=== PATIENT | female | born 1985 | race Caucasian/White ===

== ENCOUNTER 2022-03-11 03:35 | Emergency (ER) | payer MEDICAID, SELFPAY ==
--- NOTE | ~2022-03-11 | XR_ITS ---
EXAMINATION: XR ANKLE, RIGHT CLINICAL INFORMATION: Fall with right ankle pain COMPARISON: None TECHNIQUE: AP, lateral, and mortise views of the right ankle. FINDINGS: Comminuted fracture of the medial malleolus. Lateral displacement of the distal fragment by 0.4 cm. Multiple small ossific fragments noted. There is a displaced posterior malleolus fracture with ossific gap at the articulation of 0.3 cm in AP dimension. Proximal migration of the fragment. There is an obliquely oriented distal fibular fracture extending to the ankle mortise. Mild lateral displacement of the distal fragment. This results in lateral shift of the talus in relation to the distal tibia. Diffuse soft tissue swelling. Ankle joint effusion. Small plantar heel spur. XR/XR ankle RT min 3V IMPRESSION: Trimalleolar right ankle fracture.
== END 2022-03-11 07:14 | disposition home or self-care (01) ==
PROVIDERS: Emergency Provider Emergency Medicine
DX: S82.851A Displaced trimalleolar fracture of right lower leg, initial encounter for closed fracture (principal); X50.1XXA Overexertion from prolonged static or awkward postures, initial encounter; Y93.89 Activity, other specified; Y92.038 Other place in apartment as the place of occurrence of the external cause; Y99.9 Unspecified external cause status
CPT/HCPCS: 29515; 73610; 96374; 99284

== ENCOUNTER → 2022-03-12 13:27 | Outpatient (BNVA) | payer MEDICAID, SELFPAY | PROVIDERS: Visit Provider Physician Assistant | DX: S82.851A Displaced trimalleolar fracture of right lower leg, initial encounter for closed fracture (principal) | CPT/HCPCS: 99202 ==

== ENCOUNTER 2022-03-17 09:47 | Day surgery (SDC) | payer MEDICAID, SELFPAY ==
--- NOTE | 2022-03-13 08:23 | P.CONAN_ITS ---
Documented by User: Roslyn Streeter NP 03/13/22 08:24 HPI - Anesthesia Eval Consult details Narrative: 37yo F for Right Ankle Fracture ORIF *Multiple Med Allergies* PMFSH Active Problems Active Problems: All Active Problems (Updated 03/12/22 @ 14:18 by Mony Walton) Trimalleolar fracture of right ankle (Acute) Past Medical History Medical History Asthma Bipolar disorder Chronic headache Surgical History Surgical History History of carpal tunnel release Hx of cholecystectomy Hx of hysterectomy Social History Social History Patient Tobacco Use Status: Current everyday Tobacco user Tobacco use type: Cigarette Smoked in Last 30 Days: Yes Patient Interested in Nicotine Replacement: No Substance Use Frequency: Daily Are you DNR?: No Advance Directives: No Advance Directives Information Provided: Yes Recently lost weight without trying: No Nutrition Risks: No Nutritional Risk Current occupational status: employed Current occupation: rt hand /dominos Meds Allergies Allergy/AdvReac Type Severity Reaction Status Date / Time codeine [CODEINE] Allergy Unknown STOMACH Verified 03/17/22 10:38 UPSET meperidine [From DEMEROL] Allergy Unknown ITCHING Verified 03/17/22 10:38 morphine [MORPHINE] Allergy Unknown ITCHING Verified 03/17/22 10:38 phenazopyridine Allergy Unknown STOMACH Verified 03/17/22 10:38 [From PYRIDIUM] UPSET tramadol [TRAMADOL] Allergy Unknown STOMACH Verified 03/17/22 10:38 UPSET ibuprofen [IBUPROFEN] AdvReac Unknown ABD PAIN Verified 03/17/22 10:38 Home Medications Medication Instructions Recorded Confirmed Last Taken Type dextroamphetamine-amphetamine 20 1 tab PO BID 03/12/22 Unknown History mg tablet divalproex 500 mg tablet,extended 500 mg PO BID 03/12/22 03/17/22 History release 24 hr propranolol 20 mg tablet 20 mg PO BID 03/12/22 03/17/22 History sulfamethoxazole 800 1 tab PO Q12H 03/12/22 Unknown History mg-trimethoprim 160 mg tablet sumatriptan succinate 50 mg tablet 0 mg PO 03/12/22 Unknown History Exam Exam Date and Time: March 13, 2022 0823 Assessment and Plan Assessment Anesthesia Assessment: Chart Reviewed Documented by User: Julio Canas MD 03/17/22 14:05 [facility] Past Medical History Medical History Asthma Bipolar disorder Chronic headache Family History Family history of problems with anesthesia: No Surgical History Surgical History History of carpal tunnel release Hx of cholecystectomy Hx of hysterectomy History of Problems with Anesthesia: No Social History Social History Patient Tobacco Use Status: Current everyday Tobacco user Tobacco use type: Cigarette Smoked in Last 30 Days: Yes Patient Interested in Nicotine Replacement: No Substance Use Frequency: Daily Are you DNR?: No Advance Directives: No Advance Directives Information Provided: Yes Recently lost weight without trying: No Nutrition Risks: No Nutritional Risk Current occupational status: employed Current occupation: rt hand /dominos Meds Allergies Allergy/AdvReac Type Severity Reaction Status Date / Time codeine [CODEINE] Allergy Unknown STOMACH Verified 03/17/22 10:38 UPSET meperidine [From DEMEROL] Allergy Unknown ITCHING Verified 03/17/22 10:38 morphine [MORPHINE] Allergy Unknown ITCHING Verified 03/17/22 10:38 phenazopyridine Allergy Unknown STOMACH Verified 03/17/22 10:38 [From PYRIDIUM] UPSET tramadol [TRAMADOL] Allergy Unknown STOMACH Verified 03/17/22 10:38 UPSET ibuprofen [IBUPROFEN] AdvReac Unknown ABD PAIN Verified 03/17/22 10:38 Home Medications Medication Instructions Recorded Confirmed Last Taken Type dextroamphetamine-amphetamine 20 1 tab PO BID 03/12/22 Unknown History mg tablet divalproex 500 mg tablet,extended 500 mg PO BID 03/12/22 03/17/22 History release 24 hr propranolol 20 mg tablet 20 mg PO BID 03/12/22 03/17/22 History sulfamethoxazole 800 1 tab PO Q12H 03/12/22 Unknown History mg-trimethoprim 160 mg tablet sumatriptan succinate 50 mg tablet 0 mg PO 03/12/22 Unknown History Exam Airway Mallampati Class: I TM Dist: >3cm Neck ROM: Full Denture: Upper and Lower Assessment and Plan Assessment Anesthesia Assessment: Anesthesia Plan Discussed Final Anesthetic Review Family History of Problems with Anesthesia: No History of Problems with Anesthesia: No NPO: Yes ASA Class: II Final Preanesthetic Review: No Changes in Pt Med Stat, Meds/Allgs Chart Reviewed, Consent Obtained/Reviewed and Anes Risks/Benef Reviewed Patient Risk: Low Procedure Risk: Low Anesthetic Plan Anesthetic Plan: GA and Regional Block Disposition: Standard PACU
[2022-03-17] VITALS (9 sets, daily range): BP systolic 104–124; BP diastolic 51–72; PULSE 55–75; RESP 16–18; TEMP 36.2–36.7; O2SAT 96–100; BMI 30.7
--- NOTE | ~2022-03-17 | FL_ITS ---
EXAMINATION: Intraoperative fluoroscopy CLINICAL INFORMATION: Right ankle fracture COMPARISON: Right ankle x-rays 03/11/2022 TECHNIQUE: Intraoperative fluoroscopy was provided for use by Dr. Trotter. A total of 4 images were saved to PACS. A radiologist was not present during imaging. Today's dictation is only for administrative purposes to document intraoperative fluoroscopic usage. TOTAL FLUOROSCOPIC TIME: 0.2 minutes FL/FL guidance in OR FINDINGS~\^^ Intraoperative fluoroscopy provided for use by Dr. Trotter. Please see operative note for detailed findings.
--- NOTE | 2022-03-17 10:37 | PC.NURSE ---
patient states had a hysterectomy in 2006 at [facility]. hcg preoperative not required
[2022-03-17] MEDS: Lactated Ringers 1,000 ML 100 ML IVCONT (10:39)
--- NOTE | 2022-03-17 11:57 | MHC.SHP ---
Pre-Procedural Eval Section A Date of Service: 03/17/22 The patient is an INPATIENT: No Changes since office visit: Yes Patient answered all questions; No Cold of Flu in the past 2 weeks, No New Medical Problems and No Changes in Medication The History & Physical has been completed within 30 days and I have reviewed it.: Yes Section B Chief Complaint: ankle fx Allergies: Allergies Allergy/AdvReac Type Severity Reaction Status Date / Time codeine [CODEINE] Allergy Unknown STOMACH Verified 03/17/22 10:38 UPSET meperidine [From DEMEROL] Allergy Unknown ITCHING Verified 03/17/22 10:38 morphine [MORPHINE] Allergy Unknown ITCHING Verified 03/17/22 10:38 phenazopyridine Allergy Unknown STOMACH Verified 03/17/22 10:38 [From PYRIDIUM] UPSET tramadol [TRAMADOL] Allergy Unknown STOMACH Verified 03/17/22 10:38 UPSET ibuprofen [IBUPROFEN] AdvReac Unknown ABD PAIN Verified 03/17/22 10:38 Plan I have reviewed the history and physical and performed a pertinent physical examination on my patient. No changes have occurred unless specified.
[2022-03-17] MEDS: HYDROmorphone HCl 0.5 MG/0.5 ML SYRINGE 0.25 MG IVPUSH (14:26)
--- NOTE | 2022-03-17 14:27 | P.BOP_ITS ---
Brief Operative Note Date of Service: 03/17/22 Pre-op diagnosis: Right ankle trimalleolar fracture Post-op diagnosis: same Procedure: ORIF lateral malleolus ORIF medial malleolus Implants: Zach 4 hold disstal fibular locking plate [place] 40 mm 4.0 partially threaded cancellous screws Surgeon: Steven Trotter MD Anesthesia: GETA and regional Was an Cnc Machine Setter used for this Procedure?: Yes Cnc Machine Setter: Rosina Pelaez Estimated blood loss (mL): 25 IV fluids (mL): 1,000 Pathology: none sent Condition: stable Disposition: PACU
[2022-03-17] MEDS: oxyCODONE HCl Immed Release 5 MG TABLET 10 MG PO (14:28)
[2022-03-17] MEDS: Acetaminophen 325 MG TABLET 650 MG PO (14:29)
--- NOTE | 2022-03-18 08:34 | W.PM.OPN ---
Operative Note Operative Note Date of Service: 03/17/22 Narrative: Date of Service: 03/17/22 Pre-op diagnosis: Right ankle trimalleolar fracture Post-op diagnosis: same Procedure: ORIF lateral malleolus ORIF medial malleolus Implants: Zach 4 hold disstal fibular locking plate [place] 40 mm 4.0 partially threaded cancellous screws Surgeon: Steven Trotter MD Anesthesia: GETA and regional Was an Bindery Machine Tender used for this Procedure?: Yes Bindery Machine Tender: Rosina Pelaez Estimated blood loss (mL): 25 IV fluids (mL): 1,000 Pathology: none sent Condition: stable Disposition: PACU Procedure in detail: Patient was brought to the operating room and placed supine on the surgical table. She was prepped and draped in standard sterile fashion and a time out was called to identify proper site, proper procedure and IV antibiotics per weight were administered. I began by exsanguinating the limb and insufflating the tourniquet to 300 mm Hg. A standard posterolateral full-thickness incision was made over the distal fibula. Full-thickness flaps were developed and a transverse fracture with anterior comminution at the metadiaphysis I used combination of irrigation, sharp debridement and a [place] to reduce the fracture. Once was reduced a 4 hole [place] distal locking plate was applied. Using standard AO technique and biplanar fluoroscopy the 4 distal locking screws and proximal nonlocking screws were applied. I was satisfied with the position of plate and the fracture reduction. I then turned my attention to the medial aspect. An oblique incision was made over the medial malleolus. Transverse medial malleolar fracture was identified and reduced with a sharp tenaculum. Two partially threaded K-wires were placed from distal to proximal through the medial malleolus making sure to remain extra-articular. 240 mm partially threaded cancellous screws were then placed over the wire reducing the medial malleolar fracture. Again biplanar fluoroscopy was used to confirm fracture reduction and hardware position. Once I was satisfied with these parameters I assessed the syndesmosis which was stable. At any or gated copiously and the wounds were closed with absorbable suture and leno. Patient was placed into sterile dressings and a well-padded posterior splint. She was extubated brought to the recovery room in stable condition. There were no known complications.
== END 2022-03-17 15:26 | disposition home or self-care (01) ==
PROVIDERS: Visit Provider Orthopaedic Surgery
PROC: (CPT 27822; principal; 2022-03-17 11:40)
DX: S82.851A Displaced trimalleolar fracture of right lower leg, initial encounter for closed fracture (principal); W10.8XXA Fall (on) (from) other stairs and steps, initial encounter; Y93.89 Activity, other specified; Y92.038 Other place in apartment as the place of occurrence of the external cause; Y99.8 Other external cause status; J45.909 Unspecified asthma, uncomplicated; F31.9 Bipolar disorder, unspecified; R51.9 Headache, unspecified; Z79.899 Other long term (current) drug therapy; Z88.8 Allergy status to other drugs, medicaments and biological substances
CPT/HCPCS: 27822; C1713; J0690; J1100; J1170; J2250; J2405; J2795

== ENCOUNTER → 2022-03-30 11:43 | Outpatient (BNVA) | payer MEDICAID, SELFPAY | PROVIDERS: Visit Provider Physician Assistant | DX: S82.851D Displaced trimalleolar fracture of right lower leg, subsequent encounter for closed fracture with routine healing (principal) | CPT/HCPCS: 29405 ==

== ENCOUNTER 2022-04-21 11:42 | Outpatient (REF) | payer MEDICAID, SELFPAY ==
--- NOTE | ~2022-04-21 | XR_ITS ---
EXAMINATION: XR ANKLE, RIGHT CLINICAL INFORMATION: Pain right ankle. COMPARISON: Right ankle 3 views 03/11/2022. TECHNIQUE: 3 views. FINDINGS: There are two malleolar screws and a lateral fibular plate and screws stabilizing previously noted fractures in alignment. The right ankle is in a hard cast. The ankle mortise and subtalar joints are normal. There is a small calcaneal heel enthesophyte. XR/XR ankle RT min 3V IMPRESSION: Status post internal fixation. Normal alignment of medial malleolar fracture and lateral fibular fracture. The entire right ankle is in a cast. Two medial malleolar screws and lateral fibular plate are in good position.
== END 2022-04-21 11:43 | disposition home or self-care (01) ==
LOC: HO.XRAY 11:42
PROVIDERS: Visit Provider Orthopaedic Surgery
DX: M25.571 Pain in right ankle and joints of right foot (principal)
CPT/HCPCS: 73610

== ENCOUNTER 2022-04-27 07:41 | Outpatient (REF) | payer MEDICAID, SELFPAY ==
--- NOTE | ~2022-04-27 | XR_ITS ---
EXAMINATION: XR ANKLE, RIGHT CLINICAL INFORMATION: Ankle pain. COMPARISON: 03/11/2022 TECHNIQUE: AP, lateral, and mortise views of the right ankle. FINDINGS: Again noted is the reduction of the trimalleolar fracture. The medial malleolar fragment is in anatomic position, stabilized by two intact lag screws. The posterior malleolar fragment is in anatomic position. The fractures are healing; there is is periosteal new bone formation. The Rubin B injury of the distal fibula is reduced by the lateral plate and screws. Periarticular osteopenia of the ankle. There appears to be a small ankle joint effusion. XR/XR ankle RT min 3V IMPRESSION: No evidence of postoperative complications, status post open reduction and internal fixation of the trimalleolar fracture. There is radiographic evidence of fracture healing. No loosening of fixation hardware.
== END 2022-04-27 07:42 | disposition home or self-care (01) ==
LOC: HO.HOSX 07:41
PROVIDERS: Visit Provider Physician Assistant
DX: M25.571 Pain in right ankle and joints of right foot (principal)
CPT/HCPCS: 73610

== ENCOUNTER 2022-05-11 07:40 | Outpatient (REF) | payer MEDICAID, SELFPAY | END 2022-05-11 07:41 | disposition home or self-care (01) | LOC: HO.HOSX 07:40 | PROVIDERS: Visit Provider Physician Assistant | DX: Z13.89 Encounter for screening for other disorder (principal) ==

== ENCOUNTER 2022-06-01 08:04 | Outpatient (REF) | payer MEDICAID, SELFPAY ==
--- NOTE | ~2022-06-01 | XR_ITS ---
EXAMINATION: XR ANKLE, RIGHT CLINICAL INFORMATION: Pain COMPARISON: Prior imaging latest 12/20/2021 TECHNIQUE: AP, lateral, and mortise views of the right ankle. FINDINGS: Status postsurgical fixation off the distal fibular fracture and the medial malleolus fracture. Stable anatomic alignment. Hardware is intact. The fracture planes are not well visualized, suggestive of progression of healing. Stable alignment of the posterior malleolar fracture, with periosteal changes. XR/XR ankle RT min 3V IMPRESSION: Stable alignment of the trimalleolar fracture. Hardware is intact. Findings suggest progression of healing.
== END 2022-06-01 08:05 | disposition home or self-care (01) ==
LOC: HO.HOSX 08:04
PROVIDERS: Visit Provider Physician Assistant
DX: M25.571 Pain in right ankle and joints of right foot (principal)
CPT/HCPCS: 73610

== ENCOUNTER 2022-07-20 06:03 | Outpatient (REF) | payer MEDICAID, SELFPAY | END 2022-07-20 06:04 | disposition home or self-care (01) | LOC: HO.HOSX 06:03 | PROVIDERS: Visit Provider Physician Assistant | DX: Z13.89 Encounter for screening for other disorder (principal) ==

== ENCOUNTER 2022-08-17 07:46 | Outpatient (REF) | payer MEDICAID, SELFPAY | END 2022-08-17 07:47 | disposition home or self-care (01) | LOC: HO.HOSX 07:46 | PROVIDERS: Visit Provider Physician Assistant | DX: Z13.89 Encounter for screening for other disorder (principal) ==

== ENCOUNTER 2023-10-14 14:45 | Emergency (ER) | payer MEDICAID, SELFPAY ==
--- NOTE | ~2023-10-14 | CT_ITS ---
EXAMINATION: CT CHEST WITHOUT CONTRAST CLINICAL INFORMATION: Left chest wall pain after fall. COMPARISON: None available. TECHNIQUE: Multidetector volumetric CT imaging of the chest was done. Axial MIP volume rendering provided. Sagittal and coronal reformatted images were obtained. This CT examination was performed using dose optimization techniques as appropriate, variously including the following: *Automated exposure control *Adjustment of mA and/or kV according to patient size (this includes techniques or standardized protocols for targeted exams where dose is matched to indication/reason for exam; i.e. extremities or head) *Use of iterative reconstruction technique DLP: 261 mGy-cm FINDINGS: BUOY TENDER: Well-expanded lungs. LUNGS: The lungs are well-expanded and clear of acute pneumonic process. There is bibasilar dependent atelectasis There is no pulmonary nodule, mass or groundglass density. No lung contusion visualized. MEDIASTINUM: Thyroid lobes are symmetrical and normal. The central trachea and the bronchi widely patent. Heart size and great vessels are normal caliber. No abnormal size mediastinal lymph nodes are hematoma. No pericardial effusion. CORONARY ARTERY CALCIFICATION: None visualized on this study. PLEURA: There is no pleural effusion. No pleural mass or thickening. AXILLA: No lymphadenopathy. UPPER ABDOMEN: Visualized liver, spleen, pancreas and bilateral adrenal glands are unremarkable. The gallbladder has been surgically removed. OSSEOUS STRUCTURES: There is a minimally displaced left lateral seventh and fourth rib fractures. No additional fracture seen. CT/CT chest wo IV con IMPRESSION: Displaced left anterolateral seventh and a fourth rib fractures. There is no pneumothorax or lung contusion. Dependent bibasilar atelectasis. Fleischner guidelines were followed.
[2023-10-14 15:12] VITALS: BP 131/85; PULSE 85; RESP 16; TEMP 36.9; O2SAT 98; BMI 26.6
--- NOTE | 2023-10-14 15:13 | ED.GENADULT ---
HPI - General Adult General Chief complaint: General Medical Stated complaint: RIB PAIN X5 DAYS S/P FALL,SEEN WEDNESDAY PER EMS Time Seen by Provider: 10/14/23 15:42 Source: patient, RN notes reviewed and old records reviewed Mode of arrival: ambulatory History of Present Illness HPI narrative: 38-year-old female with a past medical history of asthma, bipolar, presenting to the ED complaining left rib pain s/p mechanical slip and fall on ice 5 days ago. Admits was seen at [facility] had x-rays which were unremarkable, prescribed oxycodone and Tylenol without relief. Reports pain worse with coughing/movement and palpation. Denies recurrent or more recent injury/fall, SOB/CP, abdominal pain, nausea/vomiting. Denies taking anticoagulation Related Data Home Medications Medication Instructions Recorded Confirmed dextroamphetamine-amphetamine 20 1 tab PO BID 03/12/22 mg tablet divalproex 500 mg tablet,extended 500 mg PO BID 03/12/22 release 24 hr propranolol 20 mg tablet 20 mg PO BID 03/12/22 sulfamethoxazole 800 1 tab PO Q12H 03/12/22 mg-trimethoprim 160 mg tablet sumatriptan succinate 50 mg tablet 0 mg PO 03/12/22 Previous Rx's Medication Instructions Recorded hydrocodone 5 mg-acetaminophen 325 1 tab PO Q8H PRN pain, severe 3 10/14/23 mg tablet days #3 tabs ketorolac 10 mg tablet 10 mg PO TID PRN pain 5 days #15 10/14/23 tabs lidocaine 5 % topical patch 1 patch topical DAILY PRN pain #30 10/14/23 (Lidoderm) ea Allergies Allergy/AdvReac Type Severity Reaction Status Date / Time codeine [CODEINE] Allergy Unknown STOMACH Verified 06/01/22 10:38 UPSET meperidine [From DEMEROL] Allergy Unknown ITCHING Verified 06/01/22 10:38 morphine [MORPHINE] Allergy Unknown ITCHING Verified 06/01/22 10:38 phenazopyridine Allergy Unknown STOMACH Verified 06/01/22 10:38 [From PYRIDIUM] UPSET tramadol [TRAMADOL] Allergy Unknown STOMACH Verified 06/01/22 10:38 UPSET ibuprofen [IBUPROFEN] AdvReac Unknown ABD PAIN Verified 06/01/22 10:38 Review of Systems Review of Systems: Constitutional: No Fever, No Chills ENT/Mouth: No Ear Pain, No Nasal Congestion, No sore throat, No Rhinorrhea, No Swallowing Difficulty Cardiovascular: +Chest Wall Pain, No SOB Respiratory: No Cough, No Sputum Gastrointestinal: No Nausea, No Vomiting, No Diarrhea, No Constipation, No Abdominal pain Genitourinary: No Dysuria, No Hematuria, No Urinary Incontinence/retention Musculoskeletal: No joint pain, No Myalgias, No Joint Swelling Skin: No Skin Lesions, No rash Neuro: No Weakness Yes all other systems are reviewed and are negative Constitutional: Constitutional: Reports as per [facility] Past Medical History Attestation statement: The following information was validated with the patient. Source: old records reviewed Medical History Asthma Chronic headache Bipolar disorder Surgical History History of carpal tunnel release Hx of hysterectomy Hx of cholecystectomy Social History Social History Comment: count correct Patient Tobacco Use Status: Current everyday Tobacco user Tobacco use type: Cigarette Advance Directives: No Advance Directives Information Provided: No Current occupational status: employed Current occupation: rt hand /dominos Physical Exam ED Vital Signs: Vital Signs - 24 hr 10/14/23 15:12 Temperature 98.5 F Pulse Rate 85 Respiratory Rate 16 Blood Pressure 131/85 Pulse Oximetry 98 Oxygen Delivery Method Room Air BMI result Body Mass Index 26.6 Const General: cooperative, healthy appearing and no acute distress Orientation/consciousness: patient oriented x3 Limitations: no limitations [facility] Head: Yes normal to inspection and Yes atraumatic Ears: hearing grossly normal bilaterally General nose exam: Normal external nose present Face and sinus: Yes normal facial exam Eyes General: appearance normal, both eyes and all related structures EOM: EOMs intact bilaterally Neck Neck: Yes normal visual inspection and Yes no meningeal signs Chest Other: + left anterior lateral chest wall/rib reproducible tenderness noted, beneath breast. No erythema/ecchymosis or flail chest. No crepitus. Chest palpation & inspection: normal inspection of the chest, no crepitus and tenderness Resp Effort & Inspection: normal respiratory effort and no respiratory distress Auscultation: clear to auscultation bilaterally Cardio Rate: regular rate GI Inspection: Yes normal to inspection Palpation (GI): Soft to palpation, nontender, no guarding and not rigid Back/Spine/Pelvis Other: No midline cervical/thoracic/lumbar spinous tenderness/step-off or deformity Skin Rashes: no rashes Wounds: no wounds Neuro General: patient oriented x3, tone normal and no meningeal signs Cranial nerves: Yes CN's II-XII intact bilaterally Gait exam (Neuro): Normal gait present Extrem General: Yes normal to inspection Course Course Course Narrative: RME- 38 old female presents for evaluation of left chest wall pain. She reports slipping and falling on the sidewalk 5 days ago. She was seen at outside facility had x-rays that were negative for fracture of the ribs. She reports continued pain, especially worse with coughing. Plan for CT scan of the chest to evaluate for occult rib fracture CT chest wo IV con IMPRESSION: Displaced left anterolateral seventh and a fourth rib fractures. There is no pneumothorax or lung contusion. Dependent bibasilar atelectasis. Fleischner guidelines were followed. > patient is supplied with incentive spirometer Results discussed with patient including worrisome signs and symptoms and strict return precautions, and when to return to the emergency department. They verbalized understanding and feel safe for discharge at this time. Medications Administered Discontinued Medications Generic Name Dose Route Start Last Admin Trade Name Freq PRN Reason Stop Dose Admin Ketorolac Tromethamine 30 mg 10/14/23 16:13 10/14/23 16:22 Ketorolac Tromethamine 30 Mg/Ml Vial IM 10/14/23 16:14 30 mg ONCE ONE Administration Lidocaine 1 patch 10/14/23 16:13 10/14/23 16:22 Lidocaine 4 % Patch Adh..Patch TRANSDERMA 10/14/23 16:14 Not Given ONCE ONE Protocol Medical Decision Making Medical Decision Making MDM Narrative: 38-year-old female with a past medical history of asthma, bipolar, presenting to the ED complaining left rib pain s/p mechanical slip and fall on ice 5 days ago. On exam vital signs stable, NAD, nontoxic appearing, physical exam as noted above with reproducible rib/chest wall tenderness. No evidence of flail chest. Abdomen soft/nontender. Concern for rib fracture vs contusion. Low suspicion for liver/splenic injury or hematoma Plan: CT chest, pain control Please refer to course for remaining clinical decision making, interpretation of labs/imaging results, and discussions with consultants and/or family members. Differential Diagnosis Differential Diagnoses: The differential diagnosis associated with the presentation includes As above Admission/Observation Consideration of admission/observation: Escalation of care including admission/observation considered Independent Interpretation I performed an independent interpretation of an: CT Scan Radiology Impression Discussion of test interpretation with radiology: I have reviewed the radiologist's reading. External Record Review External record reviewed: Inpatient record, Office record, Outpatient record, Prior outpatient labs, Prior outpatient radiology, Primary care record and Outside ED record Tests considered The following testing was considered but not selected: As above Prescription Management I considered prescription management with: Pain Medication Discharge Plan Discharge Clinical Impression: Multiple rib fractures Patient Disposition: Home, Self-Care Instructions: Rib Fracture (ED) Additional Instructions: You have a fracture of your left anterior lateral 7th and 4th rib fractures. [employer] as an opiate pain medication, take only when pain is severe for the next 3 days Toradol as an anti-inflammatory/pain medication Lidoderm patches or numbing patches, apply to painful area Please use incentive spirometer as taught to you in the emergency department. It is important to continue to take deep breaths or you could develop pneumonia If you develop fever, persistent or worsening pain, shortness of breath return to the ED Follow-up with your doctor Prescriptions: New ketorolac 10 mg tablet 10 mg PO TID PRN (Reason: pain) 5 Days Qty: 15 0RF lidocaine [Lidoderm] 5 % adhesive patch,medicated 1 patch topical DAILY MDD remove after 12 hours PRN (Reason: pain) Qty: 30 0RF Rx Instructions: leave on most painful area for up to 12 hrs hydrocodone-acetaminophen 5-325 mg tablet 1 tab PO Q8H PRN (Reason: pain, severe) 3 Days Qty: 3 0RF Rx Instructions: Partial Fill upon patient request. No Action dextroamphetamine-amphetamine 20 mg tablet 1 tab PO BID propranolol 20 mg tablet 20 mg PO BID divalproex 500 mg tablet extended release 24 hr 500 mg PO BID sumatriptan succinate 50 mg tablet 0 mg PO sulfamethoxazole-trimethoprim 800-160 mg tablet 1 tab PO Q12H Referrals: Physician,Unknown J [Primary Care Provider] - Stand Alone Forms: Work/School Release Interventions: ED Discharge Assessment Last Done: 10/14/23 17:53 Discharge Date/Time: 10/14/23 17:53
[2023-10-14] MEDS: Ketorolac Tromethamine 30 MG/ML VIAL IM (16:22)
== END 2023-10-14 17:53 | disposition home or self-care (01) ==
PROVIDERS: Emergency Provider Emergency Medicine Emergency Medical Services
DX: S22.42XA Multiple fractures of ribs, left side, initial encounter for closed fracture (principal); W00.0XXA Fall on same level due to ice and snow, initial encounter; Y93.9 Activity, unspecified; Y92.9 Unspecified place or not applicable; Y99.9 Unspecified external cause status
CPT/HCPCS: 71250; 96372; 99284; J1885

== ENCOUNTER 2023-10-25 14:47 | Emergency (ER) | payer MEDICAID, SELFPAY ==
--- NOTE | ~2023-10-25 | XR_ITS ---
EXAMINATION: XR RIBS, LEFT, WITH PA CHEST CLINICAL INFORMATION: Pain, injury COMPARISON: Chest CT from 10/14/2023. TECHNIQUE: 3 views of the left ribs along with PA view of chest. FINDINGS: Lungs are well-inflated and clear. Trachea is midline in position. No interstitial disease, consolidation or mass. No pleural effusion or pneumothorax. Cardiac silhouette and pulmonary vessels are normal in size. The mediastinum and mitzy have normal contour. The fracture of the left anterior fourth rib is mildly displaced. Also, there is a mildly displaced fracture of the left anterior fifth rib. The sixth rib is grossly normal. Again noted is the displaced fracture of the left anterolateral seventh rib. These rib fractures are visible on the recent chest CT from 10/14/2023. XR/XR ribs LT min 3V w CXR1V IMPRESSION: * No acute pulmonary disease. * No pleural effusion or pneumothorax after the recent left rib fractures. Currently, no evidence of healing of these fractures.
[2023-10-25 15:15] VITALS: BP 129/98; PULSE 88; RESP 18; TEMP 36.2; O2SAT 95; BMI 31.6
--- NOTE | 2023-10-25 15:15 | ED_ITS ---
HPI - General Adult General Chief complaint: General Medical Stated complaint: trouble breathing, L rib pain Time Seen by Provider: 10/25/23 16:53 Source: patient Mode of arrival: ambulatory Limitations: no limitations History of Present Illness HPI narrative: Patient is a 38 year old assigned female at with a history of known left sided broken ribs presenting to the emergency department today with continued left sided rib pain. Patient states that she got diagnosed with left rib pain. Patient states that she would like to have a work note. Patient denies any dizziness, lightheadedness, abdominal pain, nausea, vomiting, fever, chills, blurry vision, double vision, loss of vision, chest pain, difficulty breathing, shortness of breath, back pain, night sweats, pain with urination, increased urinary frequency, increased urinary urgency, blood in her urine or stool, syncope or a near syncopal episode, bowel incontinence, bladder incontinence, bowel retention, bladder retention, or any other complaints at this time. Onset (ago): day(s) (11) Location: left (rib pain) Radiation: non-radiation Severity: mild Severity scale (1-10): 3 Quality: aching and dull Pain Consistency: constant Relieving factors: none Exacerbating factors: none Associated symptoms: denies other symptoms Treatments prior to arrival: none Related Data Home Medications Medication Instructions Recorded Confirmed dextroamphetamine-amphetamine 20 1 tab PO BID 03/12/22 mg tablet divalproex 500 mg tablet,extended 500 mg PO BID 03/12/22 release 24 hr propranolol 20 mg tablet 20 mg PO BID 03/12/22 sulfamethoxazole 800 1 tab PO Q12H 03/12/22 mg-trimethoprim 160 mg tablet sumatriptan succinate 50 mg tablet 0 mg PO 03/12/22 Previous Rx's Medication Instructions Recorded hydrocodone 5 mg-acetaminophen 325 1 tab PO Q8H PRN pain, severe 3 10/14/23 mg tablet days #3 tabs ketorolac 10 mg tablet 10 mg PO TID PRN pain 5 days #15 10/14/23 tabs lidocaine 5 % topical patch 1 patch topical DAILY PRN pain #30 10/14/23 (Lidoderm) ea Allergies Allergy/AdvReac Type Severity Reaction Status Date / Time codeine [CODEINE] Allergy Unknown STOMACH Verified 10/25/23 15:19 UPSET meperidine [From DEMEROL] Allergy Unknown ITCHING Verified 10/25/23 15:19 morphine [MORPHINE] Allergy Unknown ITCHING Verified 10/25/23 15:19 phenazopyridine Allergy Unknown STOMACH Verified 10/25/23 15:19 [From PYRIDIUM] UPSET tramadol [TRAMADOL] Allergy Unknown STOMACH Verified 10/25/23 15:19 UPSET ibuprofen [IBUPROFEN] AdvReac Unknown ABD PAIN Verified 10/25/23 15:19 Review of Systems Constitutional: Constitutional: Reports no additional constitutional complaints, Denies chills, Denies fever(s) and Denies night sweats Eyes: Eyes: Reports no additional eye complaints, Denies blurry vision, Denies change in vision, Denies diplopia, Denies eye discharge, Denies loss of vision and Denies eye pain ENT: Denies dizziness Cardiovascular: Cardiovascular: Reports no additional cardiovascular complaints, Denies chest pain, Denies lightheadedness, Denies Loss of Consciousness and Denies dyspnea Respiratory: Respiratory: Reports no additional respiratory complaints and Denies dyspnea Gastrointestinal: Gastrointestinal: Reports no additional gastrointestinal complaints, Denies abdominal pain, Denies melena, Denies hematochezia, Denies change in bowel habits and Denies change in stool character Genitourinary: Genitourinary: Denies hematuria, Denies urinary frequency, Denies dysuria, Denies urinary incontinence, Denies urinary hesitancy and Denies urinary urgency Musculoskeletal: Musculoskeletal: Reports no additional musculoskeletal complaints, Denies numbness and Denies tingling Comments: left sided rib pain Neurologic: Denies dizziness, Denies loss of vision, Denies numbness and Denies tingling Psychiatric: Psychiatric: Reports no additional psychiatric complaints Endocrine: Endocrine: Reports no additional endocrine complaints Hematologic/Lymphatic: Hematologic/Lymphatic: Reports no additional hematologic/lymphatic complaints Allergic/Immunologic: Allergic/Immunologic: Reports no additional allergic/immunologic complaints PMFSH Past Medical History Attestation statement: The following information was validated with the patient. Source: old records reviewed and nursing notes reviewed Medical History Asthma Chronic headache Bipolar disorder Surgical History History of carpal tunnel release Hx of hysterectomy Hx of cholecystectomy Social History Social History Comment: count correct Patient Tobacco Use Status: Current everyday Tobacco user Tobacco use type: Cigarette Advance Directives: No Advance Directives Information Provided: No Current occupational status: employed Current occupation: rt hand /[employer] Physical Exam ED Vital Signs: Vital Signs - 24 hr 10/25/23 15:15 Temperature 97.2 F Pulse Rate 88 Respiratory Rate 18 Blood Pressure 129/98 H Pulse Oximetry 95 Oxygen Delivery Method Room Air BMI result Body Mass Index 31.6 Const General: cooperative, no acute distress, alert and awake Nutritional Appearance: well nourished Orientation/consciousness: patient oriented x3 Limitations: no limitations HENMT Head: Yes normal to inspection and Yes atraumatic Ears: hearing grossly normal bilaterally and external ears normal General nose exam: Normal external nose present, no nasal discharge noted and no epistaxis Face and sinus: Yes normal facial exam, No abrasion and No laceration Mouth: Normal oral and palatal mucosa present, no drooling and no muffled voice Eyes General: appearance normal, both eyes and all related structures Periorbital: periorbital findings normal Eyelids: Yes eyelids normal Conjunctivae: conjunctivae normal Pupils: Equal, round and reactive pupils present EOM: EOMs intact bilaterally Neck Neck: Yes normal visual inspection, Yes full ROM and Yes no lymphadenopathy Chest Chest palpation & inspection: normal inspection of the chest Resp Effort & Inspection: normal respiratory effort and able to speak in complete sentences Auscultation: clear to auscultation bilaterally GI Inspection: Yes normal to inspection Neuro General: patient oriented x3 and moves all extremities Cranial nerves: Yes Equal, round and reactive pupils present Cognition (Neuro): normal cognition Motor exam (neuro): 5/5 motor strength present throughout Sensory Exam: Normal double simultaneous stimulation for sensation Coordination: [id number] test normal Extrem General: Yes normal to inspection, Yes full ROM and Yes capillary refill normal Psych Appearance: grossly normal Mental Status: mental status grossly normal Affect: normal affect Attitude: cooperative Thought process: Normal thought process present Thought content: Normal thought content present Insight: Good insight present (Psych) Course Course Course Narrative: RME performed by Nunu Garay PA-C. Patient is a 38 year old assigned female at presenting to the emergency department with left sided rib pain. Patient states that she has 2 broken ribs on that side and the pain is persistent. Detailed physical exam and review of systems are deferred to the care program resident. Imaging ordered. Patient placed back in the waiting room pending room availability and results. Medical Decision Making Medical Decision Making MDM Narrative: Patient is a 38 year old assigned female at with a history of recent rib fracture presenting to the emergency department today with left sided rib pain. Patient's physical exam was unremarkable. Patient's rib x-ray showed a fractured 4th, 5th, and 7th left rib. This is unchanged from her previous chest CT and there is no evidence of penumo or hemothorax. I explained my physical exam findings as well as all test results to the patient. I answered all questions asked by the patient. I stressed the importance of the patient taking her medication as prescribed. I stressed the importance of the patient following up with her primary care provider. I stressed the importance of the patient returning to the emergency department immediately if her symptoms were to worsen or if she were to develop any dizziness, shortness of breath, difficulty breathing, chest pain, blurry vision, loss of vision, nausea, vomiting, abdominal pain, fever, chills, back pain, or any other complaints. Patient verbalized agreement and understanding with this treatment plan and discharge. Differential Diagnosis Differential Diagnoses: The differential diagnosis associated with the presentation includes Left rib fractures Rib contusion Rib pain Rib injury Admission/Observation Consideration of admission/observation: Escalation of care including admission/observation considered Patient would have been admitted to the hospital had her work up had any findings where hospital admission was appropriate and her clinical presentation warranted hospital admission. Independent Interpretation I performed an independent interpretation of an: Plain X-Ray Interpretation: My interpretation is in agreement with the radiologist's impression of this imaging study. -- EXAMINATION: XR RIBS, LEFT, WITH PA CHEST CLINICAL INFORMATION: Pain, injury COMPARISON: Chest CT from 10/14/2023. TECHNIQUE: 3 views of the left ribs along with PA view of chest. FINDINGS: Lungs are well-inflated and clear. Trachea is midline in position. No interstitial disease, consolidation or mass. No pleural effusion or pneumothorax. Cardiac silhouette and pulmonary vessels are normal in size. The mediastinum and mitzy have normal contour. The fracture of the left anterior fourth rib is mildly displaced. Also, there is a mildly displaced fracture of the left anterior fifth rib. The sixth rib is grossly normal. Again noted is the displaced fracture of the left anterolateral seventh rib. These rib fractures are visible on the recent chest CT from 10/14/2023. XR/XR ribs LT min 3V w CXR1V IMPRESSION: * No acute pulmonary disease. * No pleural effusion or pneumothorax after the recent left rib fractures. Currently, no evidence of healing of these fractures. Dictated By: Faheem Oliver MD Signed By: Electronically signed by Faheem Oliver MD 10/25/23 1634 Radiology Impression Discussion of test interpretation with radiology: I have reviewed the radiologist's reading. Discharge Plan Discharge Clinical Impression: Closed rib fracture Patient Disposition: Home, Self-Care Instructions: Rib Fracture (ED) Additional Instructions: Follow up with your primary care provider. Return to the emergency department immediately if your symptoms worsen or if you develop any dizziness, shortness of breath, difficulty breathing, chest pain, blurry vision, loss of vision, nausea, vomiting, abdominal pain, fever, chills, back pain, or any other complaints. Prescriptions: No Action ketorolac 10 mg tablet 10 mg PO TID PRN (Reason: pain) 5 Days Qty: 15 0RF lidocaine [Lidoderm] 5 % adhesive patch,medicated 1 patch topical DAILY MDD remove after 12 hours PRN (Reason: pain) Qty: 30 0RF Rx Instructions: leave on most painful area for up to 12 hrs hydrocodone-acetaminophen 5-325 mg tablet 1 tab PO Q8H PRN (Reason: pain, severe) 3 Days Qty: 3 0RF Rx Instructions: Partial Fill upon patient request. dextroamphetamine-amphetamine 20 mg tablet 1 tab PO BID propranolol 20 mg tablet 20 mg PO BID divalproex 500 mg tablet extended release 24 hr 500 mg PO BID sumatriptan succinate 50 mg tablet 0 mg PO sulfamethoxazole-trimethoprim 800-160 mg tablet 1 tab PO Q12H Referrals: [facility] Family Medicine [Provider Group] (Call to establish and follow up with a primary care provider. If you already have a primary care provider, please follow up with them.) [facility] [Provider Group] (Call to establish and follow up with a primary care provider. If you already have a primary care provider, please follow up with them.) [facility] [Provider Group] (Call to establish and follow up with a primary care provider. If you already have a primary care provider, please follow up with them.) Stand Alone Forms: Work/School Release Interventions: ED Discharge Assessment Last Done: 10/25/23 18:00 Discharge Date/Time: 10/25/23 18:00 Print Language: Kittitian
== END 2023-10-25 18:00 | disposition home or self-care (01) ==
PROVIDERS: Emergency Provider Emergency Medicine Emergency Medical Services
DX: S22.32XA Fracture of one rib, left side, initial encounter for closed fracture (principal); R06.02 Shortness of breath; R07.81 Pleurodynia; X58.XXXA Exposure to other specified factors, initial encounter; Y93.9 Activity, unspecified; Y92.9 Unspecified place or not applicable; Y99.8 Other external cause status
CPT/HCPCS: 71101; 99282; 99283

== ENCOUNTER 2023-12-23 13:40 | Outpatient (REF) | payer MEDICAID, SELFPAY ==
[2023-12-23 16:14] LABS: MANUAL DIFF FLAG NO
[2023-12-23 16:17] LABS: Basophils Percent Auto 0.1 % (0-2); Eosinophils Absolute Auto 0.1 X10*3/uL (0.0-0.4); Eosinophils Percent Auto 0.9 % (0-4); Hematocrit 41.2 % (37.0-47.0); Hemoglobin 13.9 g/dl (12.0-16.0); Imm Gran Abs Auto 0.06 X10*3/uL (0.00-0.03); Imm Gran Pct Auto 0.7 % (0.0-0.4); Lymphocytes Absolute Auto 1.6 X10*3/uL (1.2-4.9); Mean Corpuscular HGB Conc 33.7 g/dl (31.0-35.0); Mean Corpuscular Hemoglobin 32.3 pg (27.0-33.0); Mean Corpuscular Volume 95.6 fL (80.0-98.0); Mean Platelet Volume 11.9 fL (9.4-12.3); Monocytes Absolute Auto 1.2 X10*3/uL (0.1-1.2); Monocytes Percent Auto 13.6 % (2-11); Neutrophils Absolute Auto 5.7 x10*3/uL (2.0-8.3); Neutrophils Percent Auto 65.7 % (45-73); Platelet Count 190 X10*3/uL (160-400); Red Blood Count 4.31 X10*6/uL (4.20-5.50); Red Cell Distribution Width 13.3 % (11.0-16.0); White Blood Count 8.6 X10*3/uL (4.8-10.8)
[2023-12-23 16:30] LABS: Alanine Aminotransferase 12 U/L (0-31); Albumin Level 3.8 g/dL (3.5-5.0); Alkaline Phosphatase 72 U/L (39-117); Aspartate Amino Transferase 18 U/L (5-31); Bilirubin Direct 0.2 mg/dL (0.0-0.5); Bilirubin Total 0.4 mg/dL (0.0-1.0); Total Protein 6.7 g/dL (6.5-8.0)
[2023-12-23 17:04] LABS: Folate 4.4 ng/mL (> or = 4.0); Vitamin B12 563 pg/mL (200-900)
[2023-12-23 18:59] LABS: Valproate 132.4 mcg/mL (50.0-100.0)
== END 2023-12-23 13:41 | disposition home or self-care (01) ==
LOC: HO.CHCLDS 13:40
PROVIDERS: Visit Provider Nurse Practitioner Family
DX: F31.60 Bipolar disorder, current episode mixed, unspecified (principal); F90.9 Attention-deficit hyperactivity disorder, unspecified type; Z79.899 Other long term (current) drug therapy
CPT/HCPCS: 36415; 80076; 80164; 82607; 82746; 85025

== ENCOUNTER 2024-02-29 11:27 | Outpatient (REF) | payer MEDICAID, SELFPAY ==
[2024-02-29 13:30] LABS: Hematocrit 41.9 % (37.0-47.0); Hemoglobin 13.8 g/dl (12.0-16.0); Mean Corpuscular HGB Conc 32.9 g/dl (31.0-35.0); Mean Corpuscular Hemoglobin 31.8 pg (27.0-33.0); Mean Corpuscular Volume 96.5 fL (80.0-98.0); Mean Platelet Volume 12.5 fL (9.4-12.3); Platelet Count 201 X10*3/uL (160-400); Red Blood Count 4.34 X10*6/uL (4.20-5.50); Red Cell Distribution Width 13.3 % (11.0-16.0); White Blood Count 5.5 X10*3/uL (4.8-10.8)
[2024-02-29 13:59] LABS: Alanine Aminotransferase 26 U/L (0-31); Albumin Level 4.3 g/dL (3.5-5.0); Alkaline Phosphatase 70 U/L (39-117); Anion Gap 13 (12-20); Aspartate Amino Transferase 35 U/L (5-31); Bilirubin Total 0.4 mg/dL (0.0-1.0); Blood Urea Nitrogen 15 mg/dL (9-16); Calcium 9.6 mg/dL (8.4-10.2); Carbon Dioxide 29 mmol/L (22-29); Chloride 104 mmol/L (96-108); Cholesterol 239 mg/dL (<200); Estimated Glomerular Filt Rate > 60; Glucose Random 93 mg/dL (60-115); HDL Cholesterol 68 mg/dL (>40); LDL Cholesterol Calculated 148 mg/dL (<100); Potassium 3.9 mmol/L (3.3-5.1); Sodium 142 mmol/L (135-145); Total Protein 7.3 g/dL (6.5-8.0); Triglycerides 118 mg/dL (<150)
[2024-02-29 14:03] LABS: Estimated Average Glucose 94 mg/dL; Hemoglobin A1c % 4.9 % (<6.0)
[2024-02-29 14:14] LABS: TSH reflex Free T4 2.25 uIU/mL (0.32-4.0); Vitamin D 25-OH Total 27.7 ng/mL (>30)
[2024-02-29 15:05] LABS: CT PCR NOT DETECTED (Not Detect.); NG PCR NOT DETECTED (Not Detect.)
[2024-03-01 03:56] LABS: Syphilis Screen Nonreactive (Nonreactive)
[2024-03-01 04:17] LABS: ~HepC Num1 0.08 S/CO (0.00-0.79); ~Hepatitis C Antibody Nonreactive (Nonreactive)
[2024-03-01 04:27] LABS: HBc Num1 0.08 S/CO (0.00-0.79); HBsAGNum1 0.27 S/CO (0.00-0.99); HIV AB/AG Nonreactive (Nonreactive); HIV Num 1 0.04 S/CO (0.00-0.99); Hepatitis B Core Antibody Nonreactive (Nonreactive); Hepatitis B Surface Antigen Negative (Negative); ~Hepatitis B Surface Antibody REACTIVE (Nonreactive)
[2024-03-01 18:03] LABS: Lyme Abs Screen <0.90 index
== END 2024-02-29 11:28 | disposition home or self-care (01) ==
LOC: HO.HHCL 11:27
PROVIDERS: Visit Provider Student in an Organized Health Care Education/Training Program
DX: Z00.00 Encounter for general adult medical examination without abnormal findings (principal); A69.20 Lyme disease, unspecified
CPT/HCPCS: 0353U; 36415; 80053; 80061; 82306; 83036; 84443; 85027; 86617; 86618; 86704; 86706; 86780; 86803; 87340; 87389

== ENCOUNTER 2025-02-12 11:59 | Outpatient (REF) | payer MEDICAID, SELFPAY ==
--- OUTSIDE RECORDS SUMMARY | 2025-02-12 13:09 | XMS_ITS | Encounter Summary ---
Author Organization [employer] Address [address] [place] [address] [address] [place] [address] Care Team Providers Care Bankruptcy Attorney Name Role Phone Pina Dixon MD Primary Care Pro vider Reason for Visit * Reason Onset Date Comments Nurse Triage 11/02/2023 Encounter Details Date Type Department Care Team ([facility] st Contact Info) Description 11/02/2023 Telephone [facility] MEDICINE [address] [place], [place] [phone] Pina Dixon MD [address] [place] [address] Nurse Triage Social History Tobacco Use Types Packs/Day Years Used Date Smoking Tobacco: Every Day Cigarettes 0.5 10 Depression Answer Date Recorded Patient Health Questionnaire-9 Score 9 10/11/2023 Patient Health Questionnaire-9 Score 9 10/11/2023 Last PHQ-9: Questionnaire Data Not on file 0 10/11/2023 Depression Answer Date Recorded Patient Health Questionnaire-2 Score 4 10/11/2023 Comments Unknown Sex and Gender Information Value Date Recorded Sex Assigned at Female 07/13/2022 10:35 AM EDT Legal Sex Female 10:35 AM EDT Gender Identity Female 02/29/2024 5:08 PM EDT Sexual Orientation Straight 02/29/2024 5: 08 PM EDT documented as of this encounter Miscellaneous Notes * Telephone Encounter - Annie Power RN - 11/02/2023 4:29 PM EST Triage call Pt has been continuing to seek ED follow up appt due to left sided chest pain with fractured ribs present 4th, 5th, 7th rib. Pt was originally seen in [facility] Ed 10/10/23 and also at [facility] 10/25/23 due to continued left sided chest pain. Reports are on the chart. Pt reports has been fired from job due to so many absences and remains in pain. Pt reports lifting left arm hurts and any movement hurts constantly. Pt doesn't have any pain medication at this time. Advised tylenol/motrin for pain . Pt was crying at time of triage due to loss of job and is asking to be seen by provider for ED follow up. Apt with [facility] 11/09/23 @ 1115am. Insurance is verified as active prior to booking. Pt still needs transfer Pt appt with new PCP. Advised will send this to team nurses for TP apt to be scheduled. Protocol Used: Chest Injury (Adult) Protocol-Based Disposition: See in Office or Video Visit within 3 Days Override (Final) Disposition: See in Office or Video Visit within 2 Weeks Override Reason: No appointments available Positive Triage Question: * Injury is still painful or swollen after 2 weeks * All higher-acuity triage questions were negative Care Advice Discussed: * Use a Cold Pack for Pain, Swelling, or Bruising * Use Heat on Area After 48 Hours * Reasons To Call Back - Swelling or bruise becomes over 2 inches (5 cm) - Pain not improved after 3 days - Pain or swelling lasts over 7 days - You become worse * Telephone Encounter - Go Pizano - 11/02/2023 3:52 PM EST Symptom: Chest Injury Outcome: Talk to a nurse or provider within 15 minutes Reason: Caller denied all higher acuity questions The caller accepted this outcome documented in this encounter Plan of Treatment Not on file documented as of this encounter Visit Diagnoses Not on filedocumented in this encounter Additional Health Concerns Assessment Noted Time PHQ-9 Depression Total Score: 9 10/11/19 3:52 PM EST documented as of this encounter Care Teams Bankruptcy Attorney Relationship Specialty Start Date End Date Pnia Dixon MD [address] [place] [phone] PCP - General Internal Medicine 12/22/22 documented as of this encounter
[2025-02-14 22:23] LABS: TS Negative Control Passed; TS Panel A 0; TS Panel B 0; TS Positive Control Passed; TSpotTB Negative (Negative)
== END 2025-02-12 12:00 | disposition home or self-care (01) ==
LOC: HO.HHCL 11:59
PROVIDERS: Visit Provider Student in an Organized Health Care Education/Training Program
DX: Z11.1 Encounter for screening for respiratory tuberculosis (principal)
CPT/HCPCS: 36415; 86481

== ENCOUNTER 2025-07-05 18:22 | Outpatient (REF) | payer MEDICAID, SELFPAY ==
--- OUTSIDE RECORDS SUMMARY | 2025-07-05 13:45 | XMS_ITS | Encounter Summary ---
Author Organization [employer] Address [address] [place] [address] [address] [place] [address] Care Team Providers Care Floriculturist Name Role Phone Pina Dixon MD Primary Care Pro vider Reason for Referral * Imaging (STAT) - Canceled Specialty Diagnoses / Procedures Referred By Contac t Referred To Contact Radiology Diagnoses Cellulitis, unspecified cellulitis site Procedures US ABDOMINAL WALL Pina Dixon MD [address] [place] [phone] Phone: tel: fax: [address] Phone: tel: fax: Referral ID Status Reason Start Date Expiration Date V isits Requested Visits Authorized [id number] Canceled 07/05/2025 07/05/2026 1 1 * Imaging (Routine) - Closed Specialty Diagnoses / Procedures Referred By Contac t Referred To Contact Radiology Diagnoses Breast cancer screening by mammogram Procedures BI Mammogram Screening Tomosynthesis Bilateral Pina Dixon MD [address] [place] [phone] Phone: tel: fax: [address] Phone: tel: fax: Referral ID Status Reason Start Date Expiration Date Visits Re quested Visits Authorized [id number] Closed 07/05/2025 07/05/2026 1 1 Encounter Details Date Type Department Care Team (Late st Contact Info) Description 07/05/2025 1:45 PM EDT Office Visit [facility] MEDICINE [address] [place] [phone] Pina Dixon MD [address] [place], [place] [phone] Breast cancer screening by mammogram (Primary Dx); Health care maintenance; Cellulitis, unspecified cellulitis site; Encounter for immunization; Wound infection Social History Tobacco Use Types Packs/Day Years Used Date Smoking Tobacco: Every Day Cigarettes 0.5 10 Smokeless Tobacco: Current Tobacco Cessation:Ready to Q uit: Not Asked; Counseling Given: Not Answered Comments:Started smoking at her 14 y of age,until now , 6 a day ,before used to smoke up to 30 cig a day Alcohol Use Standard Drinks/Week Comments Yes 0 (1 standard drink = 0.6 oz pur e alcohol) social Depression Answer Date Recorded Patient Health Questionnaire-9 Score 1 01/20/2024 Patient Health Questionnaire-9 Score 1 01/20/2024 Last PHQ-9: Questionnaire Data Not on file 0 01/20/2024 Housing Stability Answer Date Recorded What is your housing situation today? I have housing today, but I am worried about losing housing in the future 02/29/[address] you li ve. Do you have problems with any of the following? Pests such as bugs, ants, or mice 02/29/2024 Food Insecurity Answer Date Recorded Within the past 12 months, y ou worried that your food would run out before you got money to buy more: Sometimes True 2023 Within the past 12 months,th e food you bought just didn't last and you didn't have enough money to get more: Sometimes True 02/29/2024 Transportation Answer Date Recorded In the past 12 months, has l ack of transportation kept you from medical appts, meetings, work or from getting things needed for daily living? Yes, it has kept me from medical appointments or getting medications. 02/29/2024 Utilities Answer Date Recorded In the past 12 months, has t he electric, gas, oil or water company threatened to shut off services in your home? Yes 02/29/2024 Depression Answer Date Recorded Patient Health Questionnaire-2 Score 0 01/20/2024 Comments Unknown Sex and Gender Information Value Date Recorded Sex Assigned at Female 07/13/2022 10:35 AM EDT Legal Sex Female 10:35 AM EDT Gender Identity Female 02/29/2024 5:08 PM EDT Sexual Orientation Straight 02/29/2024 5: 08 PM EDT documented as of this encounter Last Filed Vital Signs Vital Sign Reading Time Taken Comments Blood Pressure 120/80 07/05/2025 1:50 PM EDT Pulse 72 07/05/2025 1:50 PM EDT Temperature 36.2 C (97.1 F) 07/05/2025 1:50 PM EDT Respiratory Rate 20 07/05/2025 1:50 PM EDT Oxygen Saturation - - Inhaled Oxygen Concentration - - Weight 103 kg (226 lb 9.6 oz) 07/05/2025 1:50 PM EDT Height 167.6 cm (5' 6 ) 07/05/2025 1:50 PM EDT Body Mass Index 36.57 07/05/2025 1:50 PM EDT documented in this encounter Plan of Treatment Upcoming Encounters Date Type Department Care Team (Late st Contact Info) Description 08/17/2025 10:45 AM EST Office Visit [facility] MEDICINE [address] [place] [phone] Pina Dixon MD [address] [place] [address] 08/28/2025 2:30 PM EST Office Visit [facility] OPTOMETRY [address] [place] [address] Tiesha Ng OD [address] [place] [address] Scheduled Orders Name Type Priority Associated Diagnoses Orde r Schedule BI Mammogram Screening Tomosynthesis Bilateral Imaging Routine Breast cancer screening by mammogram Expected: 07/05/2025, Expires: 09/04/2026 CBC auto differential Lab Routine Health care maintenance Expected: 07/05/2025 (Approximate), Expires: 07/05/2026 Chlamydia/Trichomonas/Ne isseria gonorrhoeae, PCR, Urine Lab Routine Health care maintenance Ordered: 07/05/2025 Comprehensive Metabolic Panel Lab Routine Health care maintenance Expected: 07/05/2025 (Approximate), Expires: 07/05/2026 Hemoglobin A1c Lab Routine Health care maintenance Expected: 07/05/2025 (Approximate), Expires: 07/05/2026 Hepatitis B surface antigen, EIA Lab Routine Health care maintenance Expected: 07/05/2025 (Approximate), Expires: 07/05/2026 Hepatitis C Antibody with Reflex to HCV, RNA, Quantitative, Real-Time PCR Lab Routine Health care maintenance Expected: 07/05/2025 (Approximate), Expires: 07/05/2026 HIV-1/2 Antigen and Antibodies, Fourth Generation, with Reflexes Lab Routine Health care maintenance Expected: 07/05/2025 (Approximate), Expires: 07/05/2026 Lipid Panel, Standard Lab Routine Health care maintenance Expected: 07/05/2025 (Approximate), Expires: 07/05/2026 Syphilis Screen Lab Routine Health care maintenance Expected: 07/05/2025 (Approximate), Expires: 07/05/2026 TSH with Reflex to Free T4 Lab Routine Health care maintenance Expected: 07/05/2025 (Approximate), Expires: 07/05/2026 Vitamin D, 25-Hydroxy, Total, Immunoassay Lab Routine Health care maintenance Expected: 07/05/2025 (Approximate), Expires: 07/05/2026 US ABDOMINAL WALL Imaging STAT Cellulitis, unspecified cellulitis site Expected: 07/05/2025, Expires: 07/05/2026 Wound Culture Microbiology Routine Wound infection Ordered: 07/05/2025 documented as of this encounter Visit Diagnoses Diagnosis Breast cancer screening by mammogram- Primary Health care maintenance Cellulitis, unspecified cellulitis site Encounter for immunization Wound infection Posttraumatic wound infection not elsewhere classified documented in this encounter Additional Health Concerns Assessment Noted Time PHQ-9 Depression Total Score: 1 01/20/20 24 2:34 PM EDT documented as of this encounter Care Teams Floriculturist Relationship Specialty Start Date End Date Pina Dixon MD [address] [place] [address] [place] [phone] PCP - General Internal Medicine 12/22/22 documented as of this encounter
--- OUTSIDE RECORDS SUMMARY | 2025-07-05 19:43 | XMS_ITS | Encounter Summary ---
Author Organization [employer] Address [address] [facility] 7t [place] [address] Care Team Providers Care Tobacco Warehouse Manager Name Role Phone Ford Gabriel Primary Care Provider Unavail able Pina Dixon MD Primary Care Pro vider Reason for Visit * Reason Onset Date Comments Med Refill 10/01/2022 Encounter Details Date Type Department Care Team (Late st Contact Info) Description 10/01/2022 Refill [facility] [address] [place] [address] Ford Gabriel AGNP Attention deficit hyperactivity disorder (ADHD), unspecified ADHD type Social History Tobacco Use Types Packs/Day Years Used Date Smoking Tobacco: Never Assessed Comments Unknown Sex and Gender Information Value Date Recorded Sex Assigned at Female 07/13/2022 10:35 AM EDT Legal Sex Female 10:35 AM EDT Gender Identity Female 02/29/2024 5:08 PM EDT Sexual Orientation Straight 02/29/2024 5: 08 PM EDT documented as of this encounter Miscellaneous Notes * Telephone Encounter - CHANDA Bishop - 10/01/2022 3:24 PM EST Rx was already sent on 09/22/2022 * Telephone Encounter - Severo William - 10/01/2022 2:15 PM EST Tc from pt requesting med refill Adderall 20 mg Please contact pt at [phone] documented in this encounter Plan of Treatment Upcoming Encounters Date Type Department Care Team (Late st Contact Info) Description 08/17/2025 10:45 AM EST Office Visit [facility] [address] [place] [address] Pina Dixon MD [address] [place] [address] 08/28/2025 2:30 PM EST Office Visit [facility] [address] [place], [place] [phone] Tiesha Ng, OD [address] [place], [place] [phone] documented as of this encounter Visit Diagnoses Diagnosis Attention deficit hyperactivity disorder (ADHD), unspecified ADHD type documented in this encounter Care Teams Tobacco Warehouse Manager Relationship Specialty Start Date End Date Ford Gabriel AGNP PCP - General Family Medicine 09/03/22 12/21/22 Pina Dixon MD [address] [place] [address] PCP - General Internal Medicine 12/22/22 documented as of this encounter
--- OUTSIDE RECORDS SUMMARY | 2025-07-05 19:43 | XMS_ITS | Encounter Summary ---
Author Organization [employer] Address [address] [place] [address] 7 [place] [address] Care Team Providers Care Training Assistant Name Role Phone Pina Dixon MD Primary Care Pro vider Reason for Visit * Reason Onset Date Comments Prior Authorization 01/07/2023 Encounter Details Date Type Department Care Team ([facility] st Contact Info) Description 01/07/2023 Telephone [facility] [address] [place], [place] [phone] Pina Dixon MD [address] [place] [address] Prior Authorization Social History Tobacco Use Types Packs/Day Years Used Date Smoking Tobacco: Every Day Cigarettes 0.5 10 Comments Unknown Sex and Gender Information Value Date Recorded Sex Assigned at Female 07/13/2022 10:35 AM EDT Legal Sex Female 10:35 AM EDT Gender Identity Female 02/29/2024 5:08 PM EDT Sexual Orientation Straight 02/29/2024 5: 08 PM EDT COVID-19 Exposure Response Date Recorded In the last 10 days, have yo u been in contact with someone who was confirmed or suspected to have Coronavirus/COVID-19? No / Unsure 12/30/2022 3:07 PM EDT documented as of this encounter Miscellaneous Notes * Telephone Encounter - Ana Laura Matta - 01/18/2023 9:53 AM EDT TC to pharmacy and medication was picked up on 01/08. Not due for another refill until 02/07. * Telephone Encounter - Pavelj carlos Jason Hester - 01/07/2023 11:17 AM EDT Tc from pt requesting PA status for Medication previously sent. Please contact pt at [phone] * Telephone Encounter - Severo William - 01/07/2023 9:36 AM EDT Tc from pt requesting a PA for medication adderall 20 mg. Please contact pt at [phone] documented in this encounter Plan of Treatment Upcoming Encounters Date Type Department Care Team (Late st Contact Info) Description 08/17/2025 10:45 AM EST Office Visit [facility] [address] [place] [address] Pina Dixon MD [address] [place] [address] 08/28/2025 2:30 PM EST Office Visit [facility] OPTOMETRY [address] [place] [address] Tiesha Ng, OD [address] [place] [address] documented as of this encounter Visit Diagnoses Not on filedocumented in this encounter Care Teams Training Assistant Relationship Specialty Start Date End Date Pina Dixon MD [address] [place] [address] PCP - General Internal Medicine 12/22/22 documented as of this encounter
--- OUTSIDE RECORDS SUMMARY | 2025-07-05 19:43 | XMS_ITS | Clinical Summary ---
Author Organization [facility] Address [address] [place] [address] Care Team Providers Care Chief Optometry Service Name Role Phone Unavailable Primary Care Provider Unavailabl e Source Comments PLEASE NOTE, if this patient is a minor, it may be UNLAWFUL to discuss sensitive information that is contained in these records (such as FAMILY PLANNING, MENTAL HEALTH or SUBSTANCE ABUSE) with the minor patient's parent or other person without the patient's specific authorization.[facility] Social History Tobacco Use Types Packs/Day Years Used Date Smoking Tobacco: Never Assessed Comments Unknown Sex and Gender Information Value Date Recorded Sex Assigned at Female 03/26/2025 10:41 AM PDT Legal Sex Female 10:41 AM PDT Gender Identity Female 03/26/2025 10:41 AM PDT Sexual Orientation Not on file Plan of Treatment Upcoming Encounters Date Type Department Care Team (Late st Contact Info) Description 07/17/2025 1:00 PM EST Behavioral Health Visit [facility] [address] [place] [address] LIDIA TURNER [phone] Itz San, HNP [address] [place] [address] LIDIA Turner [phone] Health Maintenance Due Date Last Done Comments Anxiety Screening 1983 Diabetes Screening 1983 HPV Screening (self-collect) 1983 HPV Screening 1983 Pap + HPV 1983 Tobacco Screening 1983 Relationship Safety Screening/Counseling 1998 Hypertension Screening (#1) 2001 Imm-Hepatitis B (1 of 3 - 19 + 3-dose series) 2002 Cervical Cancer Screening 01/20/2004 Pap Smear 01/20/2004 Imm-HPV (1 - 3-dose SCDM series) 2010 Imm-DTaP/Tdap/Td (2 - Td or Tdap) 09/13/2020 011 Breast Cancer Screening (Mammogram) 2023 Alcohol and Drug Screen 09/13/2024 Depression Annual Screen 09/13/2024 Sal-HSHUB-42 ( season) 2025 Imm-Influenza (#1) 2025 07/26/2020, 0 09/21/2019, 12/29/2018 Lipid Screening 02/28/2029 02/29/2024 HIV Screening Completed 02/29/2024, 02/29/2024 Hepatitis C Screening Completed 02/29/2024 Cervical Ablation/Cold-Knife Conization Discontinued Cervical Cryotherapy Discontinued Colposcopy Discontinued Excision/Leep Discontinued HPV Genotyping Discontinued Vaginal Pap Discontinued Vulvoscopy Discontinued
--- OUTSIDE RECORDS SUMMARY | 2025-07-05 19:43 | XMS_ITS | Encounter Summary ---
Author Organization [employer] Address [address] [place] [address] [place] [address] Care Team Providers Care Electronics Lead Name Role Phone Pina Dixon MD Primary Care Pro vider Reason for Visit * Reason Comments Med Refill Encounter Details Date Type Department Care Team (Late Contact Info) Description 06/30/2023 Refill [facility] [address] [place] [address] [phone] Marcello Luna FNP Attention deficit hyperactivity disorder (ADHD), unspecified ADHD type Social History Tobacco Use Types Packs/Day Years Used Date Smoking Tobacco: Every Day Cigarettes 0.5 10 Depression Answer Date Recorded Patient Health Questionnaire-9 Score 9 05/27/2023 Depression Answer Date Recorded Patient Health Questionnaire-2 Score 3 05/27/2023 Comments Unknown Sex and Gender Information Value Date Recorded Sex Assigned at Female 07/13/2022 10:35 AM EDT Legal Sex Female 10:35 AM EDT Gender Identity Female 02/29/2024 5:08 PM EDT Sexual Orientation Straight 02/29/2024 5: 08 PM EDT documented as of this encounter Plan of Treatment Upcoming Encounters Date Type Department Care Team (Late Contact Info) Description 08/17/2025 10:45 AM EST Office Visit [facility] [address] [place] [address] [phone] Pina Dixon MD [address] [place], [place] [phone] 08/28/2025 2:30 PM EST Office Visit [facility] OPTOMETRY [address] [place] [address] [phone] Tiesha Ng, OD [address] [place] [address] documented as of this encounter Visit Diagnoses Diagnosis Attention deficit hyperactivity disorder (ADHD), unspecified ADHD type documented in this encounter Additional Health Concerns Assessment Noted Time PHQ-9 Depression Total Score: 9 05/27/20 23 11:09 AM EDT documented as of this encounter Care Teams Electronics Lead Relationship Specialty Start Date End Date Pina Dixon MD [address] [place] [phone] PCP - General Internal Medicine 12/22/22 documented as of this encounter
--- OUTSIDE RECORDS SUMMARY | 2025-07-05 19:43 | XMS_ITS | Encounter Summary ---
Author Organization [employer] Address [address] [place] [address] [place] [address] Care Team Providers Care Priming Powder Premix Blender Name Role Phone Pina Dixon MD Primary Care Pro vider Reason for Visit * Reason Comments Med Refill Encounter Details Date Type Department Care Team (Late Contact Info) Description 07/06/2023 Refill [facility] [address] [place] [address] [phone] Marcello Luna FNP Attention deficit hyperactivity disorder [...] Description 08/17/2025 10:45 AM EST Office Visit [facility] [address] [place] [address] [phone] Pina Dixon MD [address] [place], [place] [phone] 08/28/2025 2:30 PM EST Office Visit [facility] OPTOM[facility] [address] [place] [address] [phone] Tiesha Ng, OD [address] [place] [address] documented as of this encounter Visit Diagnoses Diagnosis Attention deficit hyperactivity disorder (ADHD), unspecified ADHD type documented in this encounter Additional Health Concerns Assessment Noted Time PHQ-9 Depression Total Score: 9 05/27/20 23 11:09 AM EDT documented as of this encounter Care Teams Priming Powder Premix Blender Relationship Specialty Start Date End Date Pina Dixon MD [address] [place] [address] PCP - General Internal Medicine 12/22/22 documented as of this encounter
--- OUTSIDE RECORDS SUMMARY | 2025-07-05 19:43 | XMS_ITS | Encounter Summary ---
Author Organization [employer] Address [address] [place] [address] [address] [address] Care Team Providers Care Personnel Research Psychologist Name Role Phone Pina Dixon MD Primary Care Pro vider Reason for Visit * Reason Comments Med Refill Encounter Details Date Type Department Care Team (Late Contact Info) Description 07/05/2023 Refill [facility] [address] [place] [address] [phone] Marcello Luna FNP Attention deficit hyperactivity disorder [...] Description 08/17/2025 10:45 AM EST Office Visit [facility] [address] [place] [address] [phone] Pina Dixon MD [address] [place], [place] [phone] 08/28/2025 2:30 PM EST Office Visit [facility] OPTOMETRY [address] [place] [address] [phone] Tiesha Ng, OD [address] [place] [address] documented as of this encounter Visit Diagnoses Diagnosis Attention deficit hyperactivity disorder (ADHD), unspecified ADHD type documented in this encounter Additional Health Concerns Assessment Noted Time PHQ-9 Depression Total Score: 9 05/27/20 23 11:09 AM EDT documented as of this encounter Care Teams Personnel Research Psychologist Relationship Specialty Start Date End Date Pina Dixon MD [address] [place] [phone] PCP - General Internal Medicine 12/22/22 documented as of this encounter
--- OUTSIDE RECORDS SUMMARY | 2025-07-05 19:43 | XMS_ITS | Encounter Summary ---
Author Organization [employer] Address [address] [place] [address] 7 [place] [address] Care Team Providers Care Porter Used Car Lot Name Role Phone Pina Dixon MD Primary Care Pro vider Reason for Visit * Reason Onset Date Comments Nurse Triage 11/02/2023 Encounter Details Date Type Department Care Team (Late st Contact Info) Description 11/02/2023 Telephone [facility] [address] [place], [place] [phone] Pina Dixon MD [address] [place] [address] Nurse Triage Social History Tobacco Use Types [...] 7th rib. Pt was originally seen in [facility] Ed 10/10/23 and also at [facility] ED 10/25/23 due to continued left sided [...] provider for ED follow up. Apt with SECURITY AMBASSADOR Amando 11/09/23 @ 1115am. Insurance is verified as [...] Description 08/17/2025 10:45 AM EST Office Visit [facility] [address] [place] [address] Pina Dixon MD [address] [place], [place] [phone] 08/28/2025 2:30 PM EST Office Visit [facility] OPTOMET[facility] [address] [place] [address] Tiesha Ng, OD [address] [place] [address] documented as of this encounter Visit Diagnoses Not on filedocumented in this encounter Additional Health Concerns Assessment Noted Time PHQ-9 Depression Total Score: 9 10/11/19 24 3:52 PM EST documented as of this encounter Care Teams [employer] Relationship Specialty Start Date End Date Pina Dixon MD [address] [place] [address] [phone] PCP - General Internal Medicine 12/22/22 documented as of this encounter
--- OUTSIDE RECORDS SUMMARY | 2025-07-05 19:44 | XMS_ITS | Encounter Summary ---
Author Organization [employer] Address [address] [place] [address] Care Team Providers Care Body Shop Estimator Name Role Phone Pina Dixon MD Primary Care Pro vider Encounter Details Date Type Department Care Team (Latest Contact Info) Description 07/05/2025 Travel Social History Tobacco Use Types Packs/Day Years Used Date Smoking Tobacco: Every Day Cigarettes 0.5 10 Smokeless Tobacco: Current Comments:Started smoking at her 14 y of [...] Description 08/17/2025 10:45 AM EST Office Visit [facility] [address] [place] [phone] Pina Dixon MD [address] [place] [phone] 08/28/2025 2:30 PM EST Office Visit [facility] [address] [place] [address] Tarka, Tiesha, OD [address] [place] [address] documented as of this encounter Visit Diagnoses Not on filedocumented in this encounter Additional Health Concerns Assessment Noted Time PHQ-9 Depression Total Score: 1 01/20/20 24 2:34 PM EDT documented as of this encounter Care Teams Body Shop Estimator Relationship Specialty Start Date End Date Pina Dixon MD [address] [place] [phone] PCP - General Internal Medicine 12/22/22 documented as of this encounter
--- OUTSIDE RECORDS SUMMARY | 2025-07-05 19:44 | XMS_ITS | Encounter Summary ---
Author Organization [employer] Address [address] [facility] 7 [place] [address] Care Team Providers Care Solar Mechanical Engineer Name Role Phone Pina Dixon MD Primary Care Pro vider Reason for Visit * Reason Onset Date Comments Nurse Triage 07/04/2025 Encounter Details Date Type Department Care Team ([facility] st Contact Info) Description 07/04/2025 Telephone [facility] [address] [place], [place] [phone] Pina Dixon MD [address] [place] [address] Nurse Triage Social History Tobacco Use Types [...] the past 12 months, has t he [employer], gas, oil or water [employer] threatened to shut off services in your [...] encounter Miscellaneous Notes * Telephone Encounter - Lani Rutledge RN - 07/04/2025 12:19 PM EDT Telephone call to the pt regarding the previous message . Pt states her belly button hurts . States there is a bit of bleeding in the area when cleaning the area ,and a bit of odor when cleaning aswell. States she had this pain a few months ago and went to the ER but left when they were not ableto start an IV for a CT scan . States the area hurts a 8 when sitting up ,and lying down . States she has scar tissue from gall bladder . States she has been tired . States she shivered this morning a bit but does not feel it was from a fever. States she has been having a bowel movement everyday . States they are soft . Denies straining when moving her bowels . States she had a belly button piercing 22 years ago . Pt declined to be seen in [facility] today . States she wants an appt with her PCP. Appointment was given for tomorrow at 145pm with her PCP. Protocol Used: Abdominal Pain - Female (Adult) Protocol-Based Disposition: See in Office or Video Visit Today Video visit not offered Positive Triage Question: * Moderate pain (e.g., interferes with normal activities that comes and goes (cramps) lasts > 24hours (Exception: Pain with diarrhea or vomiting; see Diarrhea or Vomiting Protocol.) * All higher-acuity triage questions were negative * Telephone Encounter - Eddie Hernandez - 07/04/2025 11:04 AM EDT Tc from pt stating she is having pain around belly button area and there has been blood coming out of belly button Contact pt at [phone] documented in this encounter Plan of Treatment Upcoming Encounters Date Type Department Care Team (Late st Contact Info) Description 08/17/2025 10:45 AM EST Office Visit [facility] [address] [place] [address] Pina Dixon MD [address] [place] [phone] 08/28/2025 2:30 PM EST Office Visit [facility] [address] [place] [address] Tiesha Ng, OD [address] [place] [address] documented as of this encounter Visit Diagnoses Not on filedocumented in this encounter Additional Health Concerns Assessment Noted Time PHQ-9 Depression Total Score: 1 01/20/20 24 2:34 PM EDT documented as of this encounter Care Teams Solar Mechanical Engineer Relationship Specialty Start Date End Date Pina Dixon MD [address] [place] [phone] PCP - General Internal Medicine 12/22/22 documented as of this encounter
--- OUTSIDE RECORDS SUMMARY | 2025-07-05 19:44 | XMS_ITS | Encounter Summary ---
Author Organization [employer] Address [address] [place] [address] 7t [place] [address] Care Team Providers Care Diet Counselor Name Role Phone Pina Dixon MD Primary Care Pro vider Reason for Referral * Imaging (STAT) - Authorized Specialty Diagnoses / Procedures Referred By Contac t Referred To Contact Radiology Diagnoses Wound infection Procedures US Pelvis Limited Pina Dixon MD [address] [place] [address] Phone: tel: fax: [address] Phone: tel: fax: Referral ID Status Reason Start Date Expiration Date V isits Requested Visits Authorized [id number] Authorized 07/05/2025 07/05/2026 1 1 Encounter Details Date Type Department Care Team (Late st Contact Info) Description 07/05/2025 Orders Only [facility] [address] [place] [address] [phone] Pina Dixon MD [address] [place], [place] [phone] Wound infection (Primary Dx) Social History Tobacco Use Types Packs/Day Years [...] Description 08/17/2025 10:45 AM EST Office Visit [facility] [address] [place] [address] Pina Dixon MD [address] [place] [address] 08/28/2025 2:30 PM EST Office Visit [facility] [address] [place], [place] [phone] Tiesha Ng, OD [address] [place], [place] [phone] Scheduled Orders Name Type Priority Associated Diagnoses Orde r Schedule US Pelvis Limited Imaging STAT Wound infection Expected: 07/05/2025, Expires: 07/05/2026 documented as of this encounter Visit Diagnoses Diagnosis Wound infection- Primary Posttraumatic wound infection not elsewhere classified documented in this encounter Additional Health Concerns Assessment Noted Time PHQ-9 Depression Total Score: 1 01/20/20 24 2:34 PM EDT documented as of this encounter Care Teams Diet Counselor Relationship Specialty Start Date End Date Pina Dixon MD [address] [place] [phone] PCP - General Internal Medicine 12/22/22 documented as of this encounter
--- OUTSIDE RECORDS SUMMARY | 2025-07-05 19:44 | XMS_ITS | Clinical Summary ---
Demographics Address [address] [facility] [address] [place] [address] Home Phone Preferred Language Libyan Marital Status Single Pentecostalism Affiliation Unknown Race White Ethnic Group Not or Lati no Author Organization [facility] Address [address] [facility] [address] [place] [phone] Phone Care Team Providers Care Fish Farm Manager Name Role Phone Pcp, Unknown Primary Care Provider Unavailabl e Allergies Active Allergy Reactions Criticality Noted Date Comments Codeine GI Upset 03/29/2015 Ibuprofen GI Upset Low 05/16/2015 Meperidine GI Upset 03/29/2015 Hypotension Morphine 01/04/2019 Morpholine Analogues GI Upset 03/29/2015 Phenazopyridine 2019 Phenytoin 2019 Pyrimidine Analogues GI Upset 03/29/2015 Tramadol GI Upset 03/29/2015 Medications dextroamphetami ne-amphetamine (ADDERALL) 20 mg Tab tablet Take 1 tablet by mouth 2 (two) times a day. 09/14/2023 Active divalproex (DEPAKOTE ER) 250 MG ER 24 hr tablet Take 250 mg by mouth. 05/27/2023 Active divalproex (DEPAKOTE ER) 500 MG ER 24 hr tablet Take 500 mg by mouth every 12 (twelve) hours. 05/27/2023 Active oxyCODONE 5 MG immediate release tablet Take 1 tablet (5 mg total) by mouth every 6 (six) hours as needed. Partial fill ok 6 tablet 10/10/2023 Active Social History Tobacco Use Types Packs/Day Years Used Date Smoking Tobacco: Never Assessed Education Answer Date Recorded Are you interested in more education? Not on luis alfredo e 10/10/2023 Are you concerned about learning? Not on file 10/10/2023 No 10/10/2023 No 10/10/2023 Digital Access Answer Date Recorded No 10/10/2023 No 10/10/2023 Reliable internet access at home? Not on file 10/10/2023 Device with a working camera? Not on file Intimate Partner Violence Answer Date R ecorded Are you denied basic needs s uch as food, clothing, or medical care? No 10/10/2023 In the past 12 months have y ou been in a relationship with a person who hurts, threatens, or tries to control you? No 10/10/2023 Are you denied basic needs s uch as food, clothing, or medical care? No 10/10/2023 In the past 12 months have y ou been in a relationship with a person who hurts, threatens, or tries to control you? No 10/10/2023 Comments Unknown Sex and Gender Information Value Date Recorded Sex Assigned at Not on file Legal Sex Female 9:18 PM EDT Gender Identity Not on file Sexual Orientation Not on file Last Filed Vital Signs Vital Sign Reading Time Taken Comments Blood Pressure 136/82 10/10/2023 8:06 PM EST Pulse 93 10/10/2023 8:06 PM EST Temperature 36.2 C (97.2 F) 10/10/2023 8:06 PM EST Respiratory Rate 18 10/10/2023 8:06 PM EST Oxygen Saturation 96% 10/10/2023 8:06 PM EST Inhaled Oxygen Concentration - - Weight 81.6 kg (180 lb) 10/10/2023 8:06 PM EST Height 165.1 cm (5' 5 ) 10/10/2023 8:06 PM EST Body Mass Index 29.95 10/10/2023 8:06 PM EST Plan of Treatment Health Maintenance Due Date Last Done Comments Adult Td,Tdap Booster 1983 VALPROIC ACID (DEPAKENE) LEVEL 1983 DEPRESSION SCREENING 1995 SMOKING Hx and SMOKELESS TOB ACCO SCREENING 01/20/1996 HEPATITIS C SCREENING 2001 HIV ONE-TIME SCREENING (18-6 5 YEARS) 2001 PAP SMEAR 01/20/2004 SCREENING FOR DIABETES 2018 MAMMOGRAM 2023 INFLUENZA VACCINE (#1) 2025 08/10/2016 COVID-19 VACCINE (2024-2 6 season) 2025 HEPATITIS A VACCINES Aged Out No long er eligible based on patient's age to complete this topic HIB VACCINES Aged Out No longer eligi ble based on patient's age to complete this topic MENINGOCOCCAL VACCINES (ACWY) Aged Out No longer eligible based on patient's age to complete this topic MENINGOCOCCAL VACCINES (B) Aged Out N o longer eligible based on patient's age to complete this topic PNEUMOCOCCAL VACCINES (0-49 years) Aged Out No longer eligible based on patient's age to complete this topic Medical Devices Not on file [place] [address] [place] [address] [place] [address] [place] [address] [id number] [place] [id number] [place] [address] [place] [id number], [place] [address] Care Teams Fish Farm Manager Relationship Specialty Start Date End Date Pcp, Unknown PCP - General 10/10/23 Additional Source Comments The information contained in this document represents components of the legal health record. It is not the complete legal health record.[facility]
--- OUTSIDE RECORDS SUMMARY | 2025-07-05 19:44 | XMS_ITS | Encounter Summary ---
Author Organization [employer] Address [address] [facility] 7t [place] [address] Care Team Providers Care Psychology Teacher Name Role Phone Pina Dixon MD Primary Care Pro vider Reason for Visit * Reason Comments Med Refill Encounter Details Date Type Department Care Team ([facility] Contact Info) Description 07/05/2025 Refill [facility] [address] [place], [place] [phone] Pina Dixon MD [address] [place] [address] Bipolar affective disorder, remission status unspecified (CMS/HCC) ([facility]) Social History Tobacco Use Types Packs/Day Years [...] the past 12 months, has t he [employer], gas, oil or water [employer] threatened to shut off services in your [...] Office Visit [facility] [address] [place] [address] Pina Dixon MD [address] [place] [address] 08/28/2025 2:30 PM EST Office Visit [facility] [address] [place] [address] Tiesha Ng, OD [address] [place] [address] documented as of this encounter Visit Diagnoses Diagnosis Bipolar affective disorder, remission status unspecified (CMS/HCC) ([facility]) documented in this encounter Additional Health Concerns Assessment Noted Time PHQ-9 Depression Total Score: 1 01/20/20 24 2:34 PM EDT documented as of this encounter Care Teams Psychology Teacher Relationship Specialty Start Date End Date Pina Dixon MD [address] [place] [phone] PCP - General Internal Medicine 12/22/22 documented as of this encounter
--- OUTSIDE RECORDS SUMMARY | 2025-07-05 19:44 | XMS_ITS | Clinical Summary ---
Author Organization [employer] Address [address] [facility] 7t [place] [address] Care Team Providers Care Dimethylaniline Sulfator Operator Name Role Phone Pina Dixon MD Primary Care Pro vider Allergies Active Allergy Reactions Criticality Noted Date Comments Codeine 01/04/2019 Ibuprofen 01/04/2019 Morphine 01/04/2019 Phenazopyridine 2019 Phenytoin 2019 Tramadol 01/04/2019 Medications * This document contains information received from the source organization and may not represent a complete record from that organization. amphetamine-dext roamphetamine (Adderall) 20 MG tabletIndication s:Attention deficit hyperactivity disorder (ADHD), unspecified ADHD type TAKE 1 TABLET BY MOUTH TWICE A DAY Do not start before June 15, 2025. 60 tablet 06/15/20 25 Active divalproex (Depakote ER) 500 MG 24 hr tabletIndication s:Bipolar affective disorder, remission status unspecified (CMS/HCC) ([facility]) TAKE 1 TABLET BY MOUTH TWICE A DAY. DO NOT CRUSH, CHEW OR SPLIT. 180 tablet 07/05/20 25 Active albuterol 108 (90 Base) MCG/ACT inhaler Inhale 2 puffs every 6 (six) hours if needed for wheezing. 18 g 2 07/05/20 25 026 Active sulfamethoxazole -trimethoprim (Bactrim DS) 800-160 MG tabletIndication s:Cellulitis, unspecified cellulitis site Take 1 tablet by mouth 2 times daily for 7 days. 14 tablet 07/05/20 25 025 Active cephalexin (Keflex) 500 MG capsuleIndicatio ns:Cellulitis, unspecified cellulitis site Take 1 capsule (500 mg) by mouth 3 times daily for 7 days. 21 capsule 07/05/20 25 Active acetaminophen (Tylenol Extra Strength) 500 MG tablet Take 1 tablet (500 mg) by mouth every 8 (eight) hours if needed for mild pain or moderate pain. 30 tablet 1 07/05/20 25 025 Active nicotine (Nicoderm CQ) 14 MG/24HR patch Place 1 patch on the skin 1 (one) time each day at the same time. 42 patch 1 02/29/20 025 Discontinued(Ot her) nicotine polacrilex (Nicotine Mini) 2 MG lozenge Dissolve 1 lozenge (2 mg) in the mouth every 2 (two) hours if needed for smoking cessation. 100 lozenge 02/29/20 025 Discontinued(Ot her) albuterol 108 (90 Base) MCG/ACT inhaler Inhale 2 puffs every 6 (six) hours if needed for wheezing. 18 g 2 02/29/20 025 Discontinued(Re order (will not trigger notification to Pharmacy)) divalproex (Depakote ER) 500 MG 24 hr tabletIndication s:Bipolar affective disorder, remission status unspecified ([facility]/HCC) ([facility]) TAKE 1 TABLET BY MOUTH TWICE A DAY. DO NOT CRUSH, CHEW OR SPLIT. 180 tablet 04/05/20 025 Discontinued amphetamine-dext roamphetamine (Adderall) 20 MG tabletIndication s:Attention deficit hyperactivity disorder (ADHD), unspecified ADHD type TAKE 1 TABLET BY MOUTH TWICE A DAY 60 tablet 05/17/20 025 Discontinued(Re order (will not trigger notification to Pharmacy)) Active Problems Problem Noted Date Diagnosed Date Cobalamin deficiency 03/30/2024 Anxiety 02/29/2024 Obesity 02/29/2024 Erythema migrans (Lyme disease) 02/29/2024 Tobacco use 02/29/2024 Health care maintenance 02/29/2024 Asthma 02/29/2024 Attention deficit hyperactivity disorder (ADHD) 09/22/2022 Assessment & Plan (01/20/2024 3:22 PM EDT): She had difficulty swallowing the large tablets of extended release Adderall. Will continue Adderall 20 mg BID Assessment & Plan (11/22/2023 2:39 PM EDT): She had difficulty swallowing the large tablets of extended release Adderall. Will continue Adderall 20 mg BID, F/U with me in 2 months. She agrees with the plan Assessment & Plan (10/11/2023 4:39 PM EST): She had difficulty swallowing the large tablets of extended release Adderall. Will continue Adderall 20 mg BID, F/U with me in 6 weeks. She agrees with the plan Assessment & Plan (05/27/2023 12:38 PM EDT): She had difficulty swallowing the large tablets of extended release Adderall. Will continue Adderall 20 mg BID, F/U with me in 2 months. She agrees with the plan Assessment & Plan (12/22/2022 2:49 PM EDT): She had difficulty swallowing the large tablets of extended release Adderall. Will continue Adderall 20 mg BID, F/U with me in 2 months. She agrees with the plan Assessment & Plan (09/22/2022 4:41 PM EST): She had difficulty swallowing the large tablets of extended release Adderall. Will continue Adderall 20 mg BID, F/U with me in 3 months. She agrees with the plan Bipolar disorder 09/22/2022 Assessment & Plan (01/20/2024 3:24 PM EDT): Labs of 12/23/2023 showed Depakote level above target range, and she has made the dosing change as directed to Depakote ER 500 mg BID. She will go for repeat Depakote level check now. Has been referred for counseling. Since this provider will be retiring, patient is now referred back to PCP for further medication management. For any issues or concerns, call [facility]. All her questions were answered. She agrees with the plan. Assessment & Plan (11/22/2023 2:41 PM EDT): Currently under a lot of stress r/t injury (fractured ribs), unemployment. Please do go for lab draw. Meanwhile continue Depakote ER 500 mg BID plus Depakote ER 250 mg once daily.. Has been referred for counseling. On 10/11/2023 provider informed pt that I would be retiring, but we would make every effort to ensure continuity of care. Assessment & Plan (10/11/2023 4:38 PM EST): Again feeling irritable, unstable mood. Will recheck labs. Meanwhile continue Depakote ER 500 mg BID plus Depakote ER 250 mg once daily.. Referring for counseling. Today 10/11/2023 provider informed pt that I would be retiring, but we would make every effort to ensure continuity of care. Assessment & Plan (05/27/2023 12:38 PM EDT): Mood improved with increased dose of the Depakote, but she ran out of the 250 mg tablets (unclear why pharmacy didn't refill as Rx did include a refill). New Rx's sent today to continue Depakote ER 500 mg BID plus Depakote ER 250 mg once daily.. Assessment & Plan (12/22/2022 2:51 PM EDT): Mood is not as stable, patient thinks she needs a dose increase of the Depakote. She will come for lab draw and then will be notified about dose change as appropriate. Meanwhile, continue Depakote ER 500 mg BID. Assessment & Plan (09/22/2022 4:40 PM EST): Mood is stable, doing well. Continue Depakote ER 500 mg BID. Come for blood tests when able. Condyloma acuminatum of vulva 2019 H/O: hysterectomy 12/29/2018 Mild intermittent asthma 12/29/2018 Premature menopause 12/29/2018 Snoring 12/29/2018 Urge incontinence of urine 12/29/2018 Vitamin D deficiency 12/29/2018 Encounters Date Type Department Care Team Description 07/05/2025 1:45 PM EDT Office Visit [facility] [address] [place] [address] Pina Dixon MD Breast cancer screening by mammogram (Primary Dx); Health care maintenance; Cellulitis, unspecified cellulitis site; Encounter for immunization; Wound infection 07/05/2025 Orders Only [facility] [address] [place] [phone] Pina Dixon MD Wound infection (Primary Dx) 07/05/2025 [facility] Health Information Management [address] [place] [address] Pina Dixon MD US ABDOMINAL WALL ORDER 07/05/2025 Travel 07/05/2025 Refill [facility] [address] [place] [address] Pina Dixon MD Bipolar affective disorder, remission status unspecified (CMS/HCC) (HCC) 07/04/2025 Telephone [facility] [address] [place] [phone] Pina Dixon MD Nurse Triage 06/13/2025 Telephone [facility] [address] [place] [phone] Pina Dixon MD Med Refill 05/25/2025 Telephone [facility] [address] [place] [phone] Pina Dixon MD dec recall 05/18/2025 Telephone [facility] [address] [place] [phone] Pina Dixon MD Call Back Request 05/17/2025 Refill [facility] [address] [place] [phone] Pina Dixon MD Attention deficit hyperactivity disorder (ADHD), unspecified ADHD type 05/08/2025 Travel 04/05/2025 Refill [facility] [address] [place] [address] Pina Dixon MD Bipolar affective disorder, remission status unspecified (CMS/HCC) from Last 3 Months Immunizations Immunization Administration Dates Next Due Influenza Injectable Quadriv alant Preservative Free IIV4 MDCK 07/26/2020 Influenza injectable quadrivalent preservative f ree 09/21/2019,12/29/2018 Influenza, seasonal, injectable, preservative fr ee 07/05/2025 Pfizer Covid-19 Vaccine 12+ 07/05/2025 Pneumococcal Polysaccharide PPSV23 01/30/2013 Tdap 09/13/2010 Family History Medical History Relation Name Comments colon ca-unsure age Maternal Grandfather severeal cancer-unspecified Maternal Grandmother breast cancer-50s Mother's Sister cousing testicular ca Other Relation Name Status Comments Maternal Grandfather Maternal Grandmother Mother's Sister Other Social History Tobacco Use Types Packs/Day Years [...] Orientation Straight 02/29/2024 5: 08 PM EDT Last Filed Vital Signs Vital Sign Reading Time Taken Comments Blood Pressure 120/80 07/05/2025 1:50 PM EDT Pulse 72 07/05/2025 1:50 PM EDT Temperature 36.2 C (97.1 F) 07/05/2025 1:50 PM EDT Respiratory Rate 20 07/05/2025 1:50 PM EDT Oxygen Saturation 99% 02/29/2024 10:33 AM EDT Inhaled Oxygen Concentration - - Weight 103 kg (226 lb 9.6 oz) 07/05/2025 1:50 PM EDT Height 167.6 cm (5' 6 ) 07/05/2025 1:50 PM EDT Body Mass Index 36.57 07/05/2025 1:50 PM EDT Plan of Treatment Upcoming Encounters Date Type Department Care Team (Late st Contact Info) Description 08/17/2025 10:45 AM EST Office Visit [facility] [address] [place] [address] Pina Dixon MD [address] [place] [address] 08/28/2025 2:30 PM EST Office Visit [facility] [address] [place] [address] Tiesha Ng, OD [address] [place] [address] Health Maintenance Due Date Last Done Comments SDOH Screening 1983 Disability Screening 1983 Alcohol/Substance Use Screening 1995 Family Planning (PISQ) 1998 HPV Vaccines (1 - 3-dose series) 1998 Hepatitis B Vaccines (1 of 3 - 19+ 3-dose series) 2002 Pneumococcal Vaccine: Pediatrics (0 to 5 Years) and At-Risk Patients (6 to 49) Years (2 of 2 - PCV) 01/30/2014 01/30/2013 DTaP/Tdap/Td Vaccines (2 - Td or Tdap) 09/13/2020 09/13/2010 Mammogram 2023 Depression Screening 2025 01/20/2024, 01/20/20 Tobacco Screening 07/05/2026 07/05/2025 Lipid Panel 02/28/2029 02/29/2024, 02/19/2021 Zoster Vaccines (1 of 2) 2033 RSV Patients and Patients Aged 60 years or older (1 - 1-dose 75+ series) 2058 HIV Screening Completed 02/29/2024 Hepatitis C Screening Completed 02/29/2024 COVID-19 Vaccine Completed 07/05/2025, 12/2020, 10/25/2020 Influenza Vaccine Completed 07/05/2025, , 09/21/2019, Additional history exists HIB Vaccines Aged Out No longer eligi ble based on patient's age to complete this topic Hepatitis A Vaccines Aged Out No long er eligible based on patient's age to complete this topic IPV Vaccines Aged Out No longer eligi ble based on patient's age to complete this topic Meningococcal B Vaccine Aged Out No l onger eligible based on patient's age to complete this topic Meningococcal Vaccine Aged Out No wojciech albin eligible based on patient's age to complete this topic RSV under 20 months Aged Out No longe r eligible based on patient's age to complete this topic Rotavirus Vaccines Aged Out No longer eligible based on patient's age to complete this topic Procedures Procedure Name Priority Date/Time Associated Diagnosis Comments HEPATITIS C AB W/REFL TO HCV RNA, QN, PCR Routine 02/29/2024 11:29 AM EDT Annual physical exam HIV 1/2 ANTIGEN/ANTIBODY, FOURTH GENERATION W/RFL Routine 02/29/2024 11:29 AM EDT Annual physical exam LIPID PANEL, STANDARD Routine 02/29/2024 11:29 AM EDT Annual physical exam from Last 3 Months or Most Recently Relevant to Health Maintenance Results * Hepatitis C Antibody with Reflex to HCV, RNA, Quantitative, Real-Time PCR (02/29/2024 11:29 AM EDT) Pathologist [facility] Hepatitis C Antibody Nonreactive Nonreactive [facility] Comment:Antibodies to HCV no t detected; does not exclude early acuteHCV infection. Blood Venous blood specimen / Unknown 02/29/2024 11:29 AM EDT 02/29/2024 12:58 PM EDT us Pina Cordero MD LAB BLOOD ORDERAB LES Final Result Performing Organization Address [facility] Co de Phone Number [facility] [address] [place] [phone] * HIV-1/2 Antigen and Antibodies, Fourth Generation, with Reflexes (02/29/2024 11:29 AM EDT) [facility] HIV AB/AG Nonreactive Nonreactive [facility] Comment:HIV-1 p24 Ag and/or HIV-1/HIV-2 Ab not detected.A test result that is nonreactive does not exclude thepossibility of exposure to or infection with HIV-1 and/orHIV-2. Nonreactive results in this assay for individualswith prior exposure to HIV-1 and/or HIV-2 may be due toantigen and antibody levels that are below the limit ofdetection of this assay.The [employer] HIV Ag/Ab Combo assay result andsupplemental assay results should be interpreted inconjunction with the patient's clinical presentation,history and other laboratory results. If the results areinconsistent with clinical evidence, additional testing issuggested to confirm the result. Blood Venous blood specimen / Unknown 02/29/2024 11:29 AM EDT 02/29/2024 12:58 PM EDT us Pina Cordero MD LAB BLOOD ORDERAB LES Final Result Performing Organization Address City/[facility]/ZIP Co de Phone Number [facility] [address] [place] [phone] * (ABNORMAL) Lipid Panel, Standard (02/29/2024 11:29 AM EDT) Triglycerides 118 <150 mg/dL [facility] Comment:Desirable Triglyceri de: less than 150 mg/dLBorderline High Triglyceride 150-199 mg/dLHigh Triglyceride: 200-499 mg/dLVery High Triglyceride: greater than or equal to 5OO mg/dL Cholesterol 239(H) <200 mg/dL [facility] Comment:Desirable Cholestero l: less than 200 mg/dLBorderline High Cholesterol: 200-239 mg/dLHigh Cholesterol: greater than 239 mg/dL LDL Cholesterol Calculated 148(H) <100 mg/dL [facility] Comment:Desirable LDL: less than 100 mg/dLNear Optimal/Above Optimal LDL: 110- 129 mg/dLBorderline High LDL: 130-159 mg/dLHigh LDL: 160-189 mg/dLVery High LDL: greater than or equal to 190 mg/dL HDL Cholesterol 68 >40 mg/dL [facility] Comment:Desirable HDL: great er than 40 mg/dL Note: This HDL assay may give artificially low results in patients with liver disease. Blood Venous blood specimen / Unknown 02/29/2024 11:29 AM EDT 02/29/2024 12:58 PM EDT Pina Cordero MD LAB BLOOD ORDERAB LES Final Result [facility] [address] [place] [phone] from Last 3 Months or Most Recently Relevant to Health Maintenance Insurance [facility] [address] C3 Care Teams Dimethylaniline Sulfator Operator Relationship Specialty Start Date End Date Pina Dixon MD [address] [place] [phone] PCP - General Internal Medicine 12/22/22
--- OUTSIDE RECORDS SUMMARY | 2025-07-05 19:44 | XMS_ITS | Encounter Summary ---
Author Organization [employer] Address [address] [facility] 7t [place] [address] Care Team Providers Care Schedule Analyst Name Role Phone Pina Dixon MD Primary Care Pro vider Reason for Visit * Reason Onset Date Comments US ABDOMINAL WALL ORDER 07/05/2025 Encounter Details Date Type Department Care Team ([facility] st Contact Info) Description 07/05/2025 Telephone [employer] Health Information Management [address] [place], [place] [phone] Pina Dixon MD [address] [place] [address] US ABDOMINAL WALL ORDER Social History Tobacco Use Types Packs/Day Years [...] the past 12 months, has t he hoozin, gas, oil or water Mine threatened to shut off services in your [...] encounter Miscellaneous Notes * Telephone Encounter - Jazmine Osborn - 07/05/2025 4:01 PM EDT [place] [facility] [place] around the soft tissue Umbilical areas please have provider update order to us pelvic limited documented in this encounter Plan of Treatment Upcoming Encounters Date Type Department Care Team (Late st Contact Info) Description 08/17/2025 10:45 AM EST Office Visit [facility] [address] [place] [address] Pina Dixon MD [address] [place] [address] 08/28/2025 2:30 PM EST Office Visit [facility] OPT[facility] [address] [place] [address] Tiesha Ng, OD [address] [place] [address] documented as of this encounter Visit Diagnoses Not on filedocumented in this encounter Additional Health Concerns Assessment Noted Time PHQ-9 Depression Total Score: 1 01/20/20 24 2:34 PM EDT documented as of this encounter Care Teams Schedule Analyst Relationship Specialty Start Date End Date Pina Dixon MD [address] [place] [phone] PCP - General Internal Medicine 12/22/22 documented as of this encounter
== END 2025-07-05 18:23 | disposition home or self-care (01) ==
LOC: HO.HHCLNP 18:22
PROVIDERS: Visit Provider Student in an Organized Health Care Education/Training Program
DX: T14.8XXA Other injury of unspecified body region, initial encounter (principal); L08.9 Local infection of the skin and subcutaneous tissue, unspecified
CPT/HCPCS: 87070; 87077; 87205

== ENCOUNTER 2025-07-11 14:22 | Outpatient (REF) | payer MEDICAID, SELFPAY ==
--- OUTSIDE RECORDS SUMMARY | 2025-07-05 13:45 | XMS_ITS | Encounter Summary ---
Author Organization [employer] Address [address] [place] [address] 7t [place] [address] Care Team Providers Care Credit Review Manager Name Role Phone Pina Dixon MD Primary Care Pro vider Reason for Referral * Imaging (STAT) - Canceled Specialty Diagnoses / Procedures Referred By Contac t Referred To Contact Radiology Diagnoses Cellulitis, unspecified cellulitis site Procedures US ABDOMINAL WALL Pina Dixon MD [address] [place] [address] Phone: tel: fax: [address] Phone: tel: fax: Referral ID Status Reason Start Date Expiration Date V isits Requested Visits Authorized [id number] Canceled 07/05/2025 07/05/2026 1 1 * Imaging (Routine) - Closed Specialty Diagnoses / Procedures Referred By Contac t Referred To Contact Radiology Diagnoses Breast cancer screening by mammogram Procedures BI Mammogram Screening Tomosynthesis Bilateral Pina Dixon MD [address] [place] [address] Phone: tel: fax: [address] Phone: tel: fax: Referral ID Status Reason Start Date Expiration Date Visits Re quested Visits Authorized [id number] Closed 07/05/2025 07/05/2026 1 1 Encounter Details Date Type Department Care Team (Latest Contact Info) Description 07/05/2025 1:45 PM EDT Office Visit [facility] [address] [place] [address] Pina Dixon MD [address] [place] [address] Breast cancer screening by mammogram (Primary Dx); Health care maintenance; Cellulitis, unspecified cellulitis site; Encounter for immunization; Wound infection; Dietary counseling; Exercise counseling; Bipolar affective disorder, remission status unspecified (CMS/HCC) (HCC); Mild intermittent asthma, unspecified whether complicated; Attention deficit hyperactivity disorder (ADHD), unspecified ADHD type; Anxiety Social History Tobacco Use Types Packs/Day Years [...] 1:50 PM EDT documented in this encounter Progress Notes * Pina Cordero MD - 07/05/2025 1:45 PM EDT Subjective Patient ID: Roslyn Borrero is a 40 y.o. female who presents for Sick visit HPI 40 y o F from US w PMX of Obesity VIJAY,Bipolar Dx,ADHD,active tobacco smoker ,Asthma Pt lost care after one initial visit > 1 y ago Comes for sick visit and reviewed today labs done in the past w pt Reports having pain in belly buttock area started in 11/2024 for no reason ,noted to have foul smelling discharge , this cleared by its own but now again present for past 2 days w purulent discharge No fever, chills just this am . Pt denies having any piercing ,insect bites not trauma in area , does reports had cholecystectomy one port thorough umbilicus but this was 20 y ago. ------- -LMP: none--pt s/p hysterectomy --------- Assessment and Plan: Health care maintenance -Annual exam done 02/2024 -T-spot 02/2025 Neg -Vaccines s/p COVID 19 x2 ,Tdap 2010 . Hep B immune Will offer at next apt, Tdap, HPV if never received -today COVID 19 and Flu vaccine -Pap smear -told no need more-per pt s/P total hysterectomy-pd to get records from surgery from [employer]---at [facility] --requested again to [place] -MM : never ----referred today ----- -02/2024 Lyme ab neg ,AST 35 ,total ch 239, LDL 148 ,vit D 27.7 -never came to discuss lab results gave today -repeat order todat for annual to do prior next apt w me in 08/2025 in fasting -saw othalmologist -Next apt for 07/2025 Obesity -BMI 36<---33.60 -Advised pt to improve diet and exercise,discussed healthy life style -discussed college director referral -refuse for now -will discuss option for GLP1 if no contraindications ,can not use Phentermine for ADHD/anxiety VIJAY,Bipolar Dx,ADHD -from previous psychiatrist provider- Marcello Nur-last apt was 01/20/2024 -- difficulty swallowing large tablets of extended release Adderall. Will continue Adderall 20 mg BID ,she also did have elevated Depakote level in 12/2023 and dose was decreased , pt had ordered level but not done -Pt Spoke w Roxanne Flores in 03/23/2025 -referred to psychiatrist-now w apt for 07/29/25 to start care -I will continue refilling meds for now until starts care w psychiatrist -continue for now adderall 20 mg BID,Depakote 500 mg BID Active tobacco smoker Started smoking at her 14 y of age,until now , 4-5<-----6 cig a day ,before used to smoke up to 30 cig a day -no need for lung ca screening yet -start at 48 if needed -pxed before nicotine patch 14 mg and lozanges prn--never used and refusing now -marijuana at least 2 cig a day -advised to try to dercrease consumption Asthma Reports sporadic albuterol use -monitor Wound infection Reports having pain in belly buttock area started in 11/2024 for no reason ,noted to have foul smelling discharge , this cleared by its own but now again present for past 2 days w purulent discharge No fever, chills just this am . Pt denies having any piercing ,insect bites not trauma in area , does reports had cholecystectomy one port thorough umbilicus but this was 20 y ago. pt with recurrent umbilcus infection unclear if there is collection or fistulization with deeper soft tissue No alarming features , normal VS -advised to clean area w water and soap only -tylenol PRN -keflex TID + bactrim BID x 7 days -obtained wound culture today -abdominal US wall STAT to r/o underneath collections -alarm signs symptoms discussed w pt in case does not have improvement in next 48 to 72 h on ATB orearlier if worsening to go to ED Review of Systems -umbilical area pain, erythema , purulent discharge Objective BP 120/80 (BP Location: Left arm, Patient Position: Sitting, BP Cuff Size: Adult) Pulse 72 Temp97.1 ??F (36.2 ??C) (Temporal) Resp 20 Ht 5' 6 (1.676 m) Wt 226 lb 9.6 oz (103 kg) BMI 36.57 kg/m?? Physical Exam Constitutional: General: She is not in acute distress. Appearance: Normal appearance. She is not ill-appearing or toxic-appearing. HENT: Mouth/Throat: Mouth: Mucous membranes are moist. Pharynx: No oropharyngeal exudate or posterior oropharyngeal erythema. Eyes: Pupils: Pupils are equal, round, and reactive to light. Abdominal: Palpations: Abdomen is soft. There is no mass. Tenderness: There is abdominal tenderness. Comments: There is mild erythema around umbilical area w noted purulent discharge coming from umbilicus, not able to evaluate if any fistula is present , mild tenderness w palpation , no crepitants ,no increase skin temp noted No guarding no rebound Musculoskeletal: Cervical back: Neck supple. Neurological: Mental Status: She is alert. Assessment/Plan Problem List Items Addressed This Visit Attention deficit hyperactivity disorder (ADHD) Bipolar disorder (HCC) Anxiety Health care maintenance Relevant Orders CBC auto differential Chlamydia/Trichomonas/Neisseria gonorrhoeae, PCR, Urine Comprehensive Metabolic Panel Hemoglobin A1c Hepatitis B surface antigen, EIA Hepatitis C Antibody with Reflex to HCV, RNA, Quantitative, Real-Time PCR HIV-1/2 Antigen and Antibodies, Fourth Generation, with Reflexes Lipid Panel, Standard Syphilis Screen TSH with Reflex to Free T4 Vitamin D, 25-Hydroxy, Total, Immunoassay Mild intermittent asthma Relevant Medications albuterol 108 (90 Base) MCG/ACT inhaler cephalexin (Keflex) 500 MG capsule Wound infection Relevant Medications acetaminophen (Tylenol Extra Strength) 500 MG tablet Other Relevant Orders Wound Culture Other Visit Diagnoses Breast cancer screening by mammogram - Primary Relevant Medications sulfamethoxazole-trimethoprim (Bactrim DS) 800-160 MG tablet cephalexin (Keflex) 500 MG capsule Other Relevant Orders BI Mammogram Screening Tomosynthesis Bilateral Cellulitis, unspecified cellulitis site Relevant Medications sulfamethoxazole-trimethoprim (Bactrim DS) 800-160 MG tablet cephalexin (Keflex) 500 MG capsule acetaminophen (Tylenol Extra Strength) 500 MG tablet Other Relevant Orders US ABDOMINAL WALL Encounter for immunization Relevant Medications sulfamethoxazole-trimethoprim (Bactrim DS) 800-160 MG tablet cephalexin (Keflex) 500 MG capsule acetaminophen (Tylenol Extra Strength) 500 MG tablet Other Relevant Orders COVID-19 VACCINE [phone] (Comirnaty) 12 yrs to 18 yrs (Completed) FLU VACCINE TRIVALENT [phone] (Fluarix) 19 yrs + (Completed) Dietary counseling Exercise counseling documented in this encounter Plan of Treatment Upcoming Encounters Date Type Department Care Team (Late st Contact Info) Description 08/17/2025 10:45 AM EST Office Visit [facility] [address] [place] [address] Pina Dixon MD [address] [place] [address] 08/28/2025 2:30 PM EST Office Visit [facility] OPTOMETRY [address] [place], [place] [phone] Tarka, Tiesha, OD [address] [facility] [place] [address] Scheduled Orders Name Type Priority Associated Diagnoses [...] infection Posttraumatic wound infection not elsewhere classified Dietary counseling Dietary surveillance and counseling Exercise counseling Bipolar affective disorder, remission status unspecified ([facility]) ([facility]) Mild intermittent asthma, unspecified whether complicated Attention deficit hyperactivity disorder (ADHD), unspecified ADHD type Anxiety Anxiety state, unspecified documented in this encounter Additional Health Concerns Assessment Noted Time PHQ-9 Depression Total Score: 1 01/20/20 24 2:34 PM EDT documented as of this encounter Care Teams Credit Review Manager Relationship Specialty Start Date End Date Pina Dixon MD [address] [place] [address] PCP - General Internal Medicine 12/22/22 documented as of this encounter
--- NOTE | ~2025-07-11 | US_ITS ---
EXAMINATION: US PELVIS, LIMITED/FOLLOW UP CLINICAL INFORMATION: Umbilical infection COMPARISON: None available. TECHNIQUE: Grayscale and color imaging of the abdominal wall in the periumbilical region using a linear transducer FINDINGS: There is a complex fluid collection with thickened wall and internal echoes in the periumbilical region measuring 2.2 x 1.9 x 1.1 cm questionable for a small abscess. Wall demonstrates slight increased vascularity. There is question of a hypoechoic tract extending to the skin. US/US pelvic limited IMPRESSION: Complex fluid collection questionable for abscess in the periumbilical region measuring 2.2 x 1.9 x 1.1 cm. Electronically signed by: Rosa Saenz MD 07/11/2025 03:02 PM EDT
--- OUTSIDE RECORDS SUMMARY | 2025-07-11 18:44 | XMS_ITS | Clinical Summary ---
Author Organization [facility] Address [address] [place] [address] Care Team Providers Care Aircraft Detail Draftsperson Name Role Phone Unavailable Primary Care Provider [...] PM EST Behavioral Health Visit [facility] [address] [place] [address] LIDIA TURNER [phone] Itz San, HNP [address] [place] [address] LIDIA Turner [phone] Health Maintenance Due Date Last Done Comments [...] Drug Screen 09/13/2024 Depression Annual Screen 09/13/2024 [id number] ( season) 2025 Imm-Influenza (#1) 2025 07/26/2020, 0 09/21/2019, 12/29/2018 Lipid Screening 02/28/2029 02/29/2024 HIV Screening Completed 02/29/2024, 02/29/2024 Hepatitis C Screening Completed 02/29/2024 Cervical Ablation/Cold-Knife Conization Discontinued Cervical Cryotherapy Discontinued Colposcopy Discontinued Excision/Leep Discontinued HPV Genotyping Discontinued Vaginal Pap Discontinued Vulvoscopy Discontinued
--- OUTSIDE RECORDS SUMMARY | 2025-07-11 18:44 | XMS_ITS | Encounter Summary ---
Author Organization [employer] Address [address] [place] [address] [address] [address] Care Team Providers Care Electric Meter Tester Name Role Phone Pina Dixon MD Primary Care Pro vider Reason for Visit * Reason Comments Med Refill Encounter Details Date Type Department Care Team (Late Contact Info) Description 07/06/2023 Refill [facility] [address] [place] [address] [phone] Marcello Luna FNP Attention deficit hyperactivity disorder [...] Description 08/17/2025 10:45 AM EST Office Visit [facility] MED[facility] [address] [place] [address] [phone] Pina Dixon MD [address] [place], [place] [phone] 08/28/2025 2:30 PM EST Office Visit [facility] OPT[facility] [address] [place] [address] [phone] Tiesha Ng, OD [address] [place] [address] documented as of this encounter Visit Diagnoses Diagnosis Attention deficit hyperactivity disorder (ADHD), unspecified ADHD type documented in this encounter Additional Health Concerns Assessment Noted Time PHQ-9 Depression Total Score: 9 05/27/20 23 11:09 AM EDT documented as of this encounter Care Teams Electric Meter Tester Relationship Specialty Start Date End Date Pina Dixon MD [address] [place] [phone] PCP - General Internal Medicine 12/22/22 documented as of this encounter
--- OUTSIDE RECORDS SUMMARY | 2025-07-11 18:44 | XMS_ITS | Encounter Summary ---
Author Organization [employer] Address [address] [place] [address] 7 [place] [address] Care Team Providers Care Manager Floral Name Role Phone Pina Dixon MD Primary Care Pro vider Reason for Visit * Reason Onset Date Comments Nurse Triage 11/02/2023 Encounter Details Date Type Department Care Team (Late st Contact Info) Description 11/02/2023 Telephone [facility] [address] [place], [place] [phone] Pina Dixon MD [address] [place] [address] Nurse Triage Social History Tobacco Use Types [...] Pt was originally seen in [facility] Ed 10/10/23 and also at [facility] 10/25/23 due to continued left sided [...] provider for ED follow up. Apt with [employer] Amando 11/09/23 @ 1115am. Insurance is verified [...] Description 08/17/2025 10:45 AM EST Office Visit [facility] [address] [place] [phone] Pina Dixon MD [address] [place], [place] [phone] 08/28/2025 2:30 PM EST Office Visit [facility] [address] [place] [address] Tiesha Ng, OD [address] [place] [address] documented as of this encounter Visit Diagnoses Not on filedocumented in this encounter Additional Health Concerns Assessment Noted Time PHQ-9 Depression Total Score: 9 10/11/19 24 3:52 PM EST documented as of this encounter Care Teams Manager Floral Relationship Specialty Start Date End Date Pina Dixon MD [address] [place] [address] [phone] PCP - General Internal Medicine 12/22/22 documented as of this encounter
--- OUTSIDE RECORDS SUMMARY | 2025-07-11 18:44 | XMS_ITS | Encounter Summary ---
Author Organization [employer] Address [address] [place] [address] [address] [address] Care Team Providers Care Pharmacy Technician Inpatient Name Role Phone Pina Dixon MD Primary Care Pro vider Reason for Visit * Reason Comments Med Refill Encounter Details Date Type Department Care Team (Late Contact Info) Description 07/05/2023 Refill [facility] [address] [place] [address] [phone] Marcello Luna FNP Attention deficit hyperactivity disorder [...] Description 08/17/2025 10:45 AM EST Office Visit [facility] [address] [place] [address] [phone] Pina Dixon MD [address] [place], [place] [phone] 08/28/2025 2:30 PM EST Office Visit [facility] [address] [place] [address] [phone] Tiesha Ng, OD [address] [place] [address] documented as of this encounter Visit Diagnoses Diagnosis Attention deficit hyperactivity disorder (ADHD), unspecified ADHD type documented in this encounter Additional Health Concerns Assessment Noted Time PHQ-9 Depression Total Score: 9 05/27/20 23 11:09 AM EDT documented as of this encounter Care Teams Pharmacy Technician Inpatient Relationship Specialty Start Date End Date Pina Dixon MD [address] [place] [phone] PCP - General Internal Medicine 12/22/22 documented as of this encounter
--- OUTSIDE RECORDS SUMMARY | 2025-07-11 18:44 | XMS_ITS | Encounter Summary ---
Author Organization [employer] Address [address] [place] [address] [address], [place] [address] Care Team Providers Care Manager Math Name Role Phone Pina Dixon MD Primary Care Pro vider Reason for Visit * Reason Comments Med Refill Encounter Details Date Type Department Care Team (Late Contact Info) Description 06/30/2023 Refill [facility] [address] [place] [address] [phone] Marcello Luna FNP Attention deficit hyperactivity disorder [...] Description 08/17/2025 10:45 AM EST Office Visit [facility] [address] [place] [address] [phone] Pina Dixon MD [address] [place], [place] [phone] 08/28/2025 2:30 PM EST Office Visit [facility] OPT[facility] [address] [place] [address] [phone] Tiesha Ng, OD [address] [place] [address] documented as of this encounter Visit Diagnoses Diagnosis Attention deficit hyperactivity disorder (ADHD), unspecified ADHD type documented in this encounter Additional Health Concerns Assessment Noted Time PHQ-9 Depression Total Score: 9 05/27/20 23 11:09 AM EDT documented as of this encounter Care Teams Manager Math Relationship Specialty Start Date End Date Pina Dixon MD [address] [place] [phone] PCP - General Internal Medicine 12/22/22 documented as of this encounter
--- OUTSIDE RECORDS SUMMARY | 2025-07-11 18:45 | XMS_ITS | Encounter Summary ---
Author Organization [employer] Address [address] [place] [address] 7t [place] [address] Care Team Providers Care Administrative Nursing Supervisor Name Role Phone Pina Dixon MD Primary Care Pro vider Reason for Referral * Imaging (STAT) - Authorized Specialty Diagnoses / Procedures Referred By Contac t Referred To Contact Radiology Diagnoses Wound infection Procedures US Pelvis Limited Pina Dixon MD [address] [place] [address] Phone: tel: fax: [address] Phone: tel: fax: Referral ID Status Reason Start Date Expiration Date V isits Requested Visits Authorized [id number] Authorized 07/05/2025 07/05/2026 1 1 Encounter Details Date Type Department Care Team (Late st Contact Info) Description 07/05/2025 Orders Only [facility] [address] [place] [address] [phone] Pina Dixon MD [address] [place], [place] [phone] Wound infection (Primary Dx) Social History Tobacco [...] Description 08/17/2025 10:45 AM EST Office Visit [facility] [address] [place] [address] Pina Dixon MD [address] [place] [address] 08/28/2025 2:30 PM EST Office Visit [facility] [address] [place] [address] Tiesha Ng, OD [address] [place] [address] documented as of this encounter Procedures Procedure Name Priority Date/Time Associated Diagnosis Comments US PELVIS LIMITED STAT 07/11/2025 2:4 5 PM EDT Wound infection GRAM STAIN RESULT (NON ORDERABLE) Routine 07/05/2025 2:40 PM EDT Wound infection documented in this encounter Results * US Pelvis Limited (07/11/2025 2:45 PM EDT) Anatomical Region Laterality Modality Pelvis Ultrasound 07/11/2025 2:45 PM EDT Narrative 07/11/2025 3:04 PM EDT [address] [address] Ultrasound Report Signed Patient: Roslyn Borrero MR#: [id number] : 1985 Acct:[id number] Age/Sex: 40 / F ADM Date: 07/11/25 Loc: HO.US Attending Dr: Pina Cordero MD Ordering Physician: Pina Dixon MD Date of Service: 07/11/25 Procedure(s): US pelvic limited Accession Number(s): [id number] cc: Pina Dixon MD Reason for Exam: umbilicus infection EXAMINATION: US PELVIS, LIMITED/FOLLOW UP CLINICAL INFORMATION: Umbilical infection COMPARISON: None available. TECHNIQUE: Grayscale and color imaging of the abdominal wall in the periumbilical region using a linear transducer FINDINGS: There is a complex fluid collection with thickened wall and internal echoes in the periumbilical region measuring 2.2 x 1.9 x 1.1 cm questionable for a small abscess. Wall demonstrates slight increased vascularity. There is question of a hypoechoic tract extending to the skin. US/US pelvic limited IMPRESSION: Complex fluid collection questionable for abscess in the periumbilical region measuring 2.2 x 1.9 x 1.1 cm. Electronically signed by: Rosa Saenz MD 07/11/2025 03:02 PM EDT RP Dictated By: Rosa Saenz MD Signed By: <Electronically signed by Rosa Saenz MD in OV> 07/11/25 1502 DD/ 1445 TD/TT: 07/11/25 1452 Rip Tailer: EDIS Procedure Note Donotuseinterpreter, Image - 07/11/2025 [place] [address] Ultrasound Report Signed Patient: Augustine Borrero#: [id number] : 1985Acct:[id number] Age/Sex: 40 / FADM Date: 07/11/25 Loc: .US Attending Dr: Pina Cordero MD Ordering Physician: Pina Dixon MD Date of Service: 07/11/25 Procedure(s): US pelvic limited Accession Number(s): [id number] cc: Pina Dixon MD Reason for Exam: umbilicus infection EXAMINATION: US PELVIS, LIMITED/FOLLOW UP CLINICAL INFORMATION: Umbilical infection COMPARISON: None available. TECHNIQUE: Grayscale and color imaging of the abdominal wall in the periumbilical region using a linear transducer FINDINGS: There is a complex fluid collection with thickened wall and internal echoes in the periumbilical region measuring 2.2 x 1.9 x 1.1 cm questionable for a small abscess. Wall demonstrates slight increased vascularity. There is question of a hypoechoic tract extending to the skin. US/US pelvic limited IMPRESSION: Complex fluid collection questionable for abscess in the periumbilical region measuring 2.2 x 1.9 x 1.1 cm. Electronically signed by: Rosa Saenz MD 07/11/2025 03:02 PM EDT RP Dictated By: Rosa Saenz MD Signed By: <Electronically signed by Rosa Saenz MD in OV> 07/11/25 1502 DD/ 1445 TD/TT: 07/11/25 1452 Rip Tailer: EDIS us Pina Cordero MD IMG US PROCEDURES Final Result * Gram Stain Result (07/05/2025 2:40 PM EDT) 07/05/2025 2:40 PM EDT 07/05/2025 6:23 PM EDT Comment:Umbilicus Narrative [facility] - 07/09/2025 12:49 PM EDT UMBILLICAL AREA INFECTION Gram stain results: 4+ polys 2+ epithelial cells 1+ red blood cells 3+ Gram-positive cocci 4+ Gram-negative rods UMBILLICAL AREA INFECTION Granulicatella adiacens Quant Org ID 4+ Susc N/A Susceptibility not routinely performed on this isolate. 07/09/25 PER , ORGANISM SENT FOR SUSCEPTIBILITY TESTING Specimen Source: Umbilicus us Pina Cordero MD HISTORICAL/NON OR DERABLE LABS Final Result [facility] [address] [place] [phone] [phone] documented in this encounter Visit Diagnoses Diagnosis Wound infection- Primary Posttraumatic wound infection not elsewhere classified documented in this encounter Additional Health Concerns Assessment Noted Time PHQ-9 Depression Total Score: 1 01/20/20 24 2:34 PM EDT documented as of this encounter Care Teams Administrative Nursing Supervisor Relationship Specialty Start Date End Date Pina Dixon MD [address] [place] [address] PCP - General Internal Medicine 12/22/22 documented as of this encounter
--- OUTSIDE RECORDS SUMMARY | 2025-07-11 18:45 | XMS_ITS | Encounter Summary ---
Author Organization [employer] Address [address] [facility] 7t [place] [address] Care Team Providers Care Ag Equipment Field Service Technician Name Role Phone Pina Dixon MD Primary Care Pro vider Encounter Details Date Type Department Care Team ([facility] st Contact Info) Description 07/09/2025 Results Follow-Up [facility] [address] [place] [address] [phone] Pina Dixon MD [address] [place] [address] Gram Stain Result Social History Tobacco Use Types Packs/Day Years [...] as of this encounter Miscellaneous Notes * Result Encounter Note - Pina Cordero MD - 07/09/2025 12:48 PM EDT I called [facility] Microbiology lab Confirmed they can see in Gram stain Gram + Cocci and Gram - Rods but in culture only grew GPC--- Granulicatella adiacens -does not have susceptibilities done Given possible chance for resistance to cephalosporins I requested Granulicatella adiacens susceptibilities -per staff it will get done I called pt who reports is taking both ATB ( bactrim and keflex) noted some improvement in wound -would continue for now current regimen If no better may need to consider dual regimen penicillin and aminoglycoside and needs to r/o subcutaneous collection , in which case will need to refer pt to ED for further Tx documented in this encounter Plan of Treatment Upcoming Encounters Date Type Department Care Team (Late st Contact Info) Description 08/17/2025 10:45 AM EST Office Visit [facility] [address] [place] [address] Pina Dixon MD [address] [place] [address] 08/28/2025 2:30 PM EST Office Visit [facility] [address] [place], [place] [phone] Tiesha Ng, OD [address] [place] [address] documented as of this encounter Visit Diagnoses Not on filedocumented in this encounter Additional Health Concerns Assessment Noted Time PHQ-9 Depression Total Score: 1 01/20/20 24 2:34 PM EDT documented as of this encounter Care Teams Ag Equipment Field Service Technician Relationship Specialty Start Date End Date Pina Dixon MD [address] [place], [place] [phone] PCP - General Internal Medicine 12/22/22 documented as of this encounter
--- OUTSIDE RECORDS SUMMARY | 2025-07-11 18:45 | XMS_ITS | Encounter Summary ---
Author Organization [employer] Address [address] [place] [address] 7 [place] [address] Care Team Providers Care Psychology Professor Name Role Phone Pina Dixon MD Primary Care Pro vider Reason for Visit * Reason Onset Date Comments Prior Authorization 01/07/2023 Encounter Details Date Type Department Care Team ([facility] st Contact Info) Description 01/07/2023 Telephone [facility] [address] [place], [place] [phone] Pina Dixon MD [address] [place] [address] Prior Authorization Social History Tobacco Use Types [...] Medication previously sent. Please contact pt at [phone] * Telephone Encounter - Severo William - 01/07/2023 9:36 AM EDT Tc from pt requesting a PA for medication adderall 20 mg. Please contact pt at [phone] documented in this encounter Plan of Treatment Upcoming Encounters Date Type Department Care Team (Late st Contact Info) Description 08/17/2025 10:45 AM EST Office Visit [facility] [address] [place] [address] Pina Dixon MD [address] [place] [address] 08/28/2025 2:30 PM EST Office Visit [facility] [address] [place] [address] Tiesha Ng, OD [address] [place] [address] documented as of this encounter Visit Diagnoses Not on filedocumented in this encounter Care Teams Psychology Professor Relationship Specialty Start Date End Date Pina Dixon MD [address] [place] [address] PCP - General Internal Medicine 12/22/22 documented as of this encounter
--- OUTSIDE RECORDS SUMMARY | 2025-07-11 18:45 | XMS_ITS | Encounter Summary ---
Author Organization [employer] Address [address] [facility] 7t [place] [address] Care Team Providers Care Data Governance Consultant Name Role Phone Ford Gabriel Primary Care Provider Unavail able Pina Dixon MD Primary Care Pro vider Reason for Visit * Reason Onset Date Comments Med Refill 10/01/2022 Encounter Details Date Type Department Care Team (Late st Contact Info) Description 10/01/2022 Refill [facility] [address] [place] [address] Ford Gabriel AGNP Attention deficit hyperactivity disorder [...] Adderall 20 mg Please contact pt at [phone] documented in this encounter Plan of Treatment Upcoming Encounters Date Type Department Care Team (Late st Contact Info) Description 08/17/2025 10:45 AM EST Office Visit [facility] [address] [place] [address] Pina Dixon MD [address] [place] [address] 08/28/2025 2:30 PM EST Office Visit [facility] [address] [place], [place] [phone] Tiesha Ng, OD [address] [place], [place] [phone] documented as of this encounter Visit Diagnoses Diagnosis Attention deficit hyperactivity disorder (ADHD), unspecified ADHD type documented in this encounter Care Teams Data Governance Consultant Relationship Specialty Start Date End Date Ford Gabriel AGNP PCP - General Family Medicine 09/03/22 12/21/22 Pina Dixon MD [address] [place] [phone] PCP - General Internal Medicine 12/22/22 documented as of this encounter
--- OUTSIDE RECORDS SUMMARY | 2025-07-11 18:45 | XMS_ITS | Clinical Summary ---
Author Organization [employer] Address [address] [facility] 7t [place] [address] Care Team Providers Care Dowel Sander Operator Name Role Phone Pina Dixon MD [...] s:Bipolar affective disorder, remission status unspecified (CMS/HCC) ([facility]) TAKE 1 TABLET BY MOUTH TWICE A [...] or moderate pain. 30 tablet 1 07/05/20 Active nicotine (Nicoderm CQ) 14 MG/24HR patch [...] s:Bipolar affective disorder, remission status unspecified (CMS/HCC) ([facility]) TAKE 1 TABLET BY MOUTH TWICE A DAY. DO NOT CRUSH, CHEW OR SPLIT. 180 tablet 04/05/20 025 Discontinued amphetamine-dext roamphetamine (Adderall) 20 MG tabletIndication s:Attention deficit hyperactivity disorder (ADHD), unspecified ADHD type TAKE 1 TABLET BY MOUTH TWICE A DAY 60 tablet 05/17/20 025 Discontinued(Re order (will not trigger notification to Pharmacy)) Active Problems Problem Noted Date Diagnosed Date Wound infection 07/05/2025 Cobalamin deficiency 03/30/2024 Anxiety 02/29/2024 Obesity 02/29/2024 Tobacco use 02/29/2024 Health care maintenance [...] management. For any issues or concerns, call [facility]. All her questions were answered. She [...] of urine 12/29/2018 Vitamin D deficiency 12/29/2018 Resolved Problems Problem Noted Date Diagnosed Date Resolved Date Erythema migrans (Lyme disease) 02/29/2024 07/05/2025 Encounters Date Type Department Care Team Description 07/09/2025 Results Follow-Up [address] [address] Pina Dixon MD Gram Stain Result 07/05/2025 1:45 PM EDT Office Visit [address] [address] Pina Dixon MD Breast cancer screening by mammogram (Primary Dx); Health care maintenance; Cellulitis, unspecified cellulitis site; Encounter for immunization; Wound infection; Dietary counseling; Exercise counseling; Bipolar affective disorder, remission status unspecified (CMS/HCC) (HCC); Mild intermittent asthma, unspecified whether complicated; Attention deficit hyperactivity disorder (ADHD), unspecified ADHD type; Anxiety 07/05/2025 Orders Only [address] [address] Pina Dixon MD Wound infection (Primary Dx) 07/05/2025 Telephone [facility] [address] [place] [address] Pina Dixon MD US ABDOMINAL WALL ORDER 07/05/2025 Travel 07/05/2025 Refill [facility] [address] [place] [address] Pina Dixon MD Bipolar affective disorder, remission status unspecified (CMS/HCC) (HCC) 07/04/[address] [address] Pina Dixon MD Nurse Triage 06/13/[address] [address] Pina Dixon MD Med Refill 05/25/[address] [address] Pina Dixon MD dec recall 05/18/[address] [address] Pina Dixon MD Call Back Request 05/17/[address] [address] Pina Dixon MD Attention deficit hyperactivity disorder (ADHD), unspecified ADHD type 05/08/2025 Travel from Last 3 Months Immunizations Immunization Administration [...] Description 08/17/2025 10:45 AM EST Office Visit [facility] [address] [place] [address] Pina Dixon MD [address] [place] [address] 08/28/2025 2:30 PM EST Office Visit [facility] OPT[facility] [address] [place] [address] Tiesha Ng, OD [address] [place] [address] Health Maintenance Due Date Last Done Comments [...] Mammogram 2023 Depression Screening 2025 01/20/2024, 01/20/20 24 Tobacco Screening 07/05/2026 07/05/2025 Lipid Panel 02/28/2029 [...] Routine 07/05/2025 2:40 PM EDT Wound infection HEPATITIS C AB W/REFL TO HCV RNA, QN, PCR Routine 02/29/2024 11:29 AM EDT Annual physical exam HIV 1/2 ANTIGEN/ANTIBODY, FOURTH GENERATION W/RFL Routine 02/29/2024 11:29 AM EDT Annual physical exam LIPID PANEL, STANDARD Routine 02/29/2024 11:29 AM EDT Annual physical exam from Last 3 Months or Most Recently Relevant to Health Maintenance Results * US Pelvis Limited (07/11/2025 2:45 PM EDT) Anatomical Region Laterality Modality Pelvis Ultrasound 07/11/2025 2:45 PM EDT Narrative 07/11/2025 3:04 PM EDT [place] [address] Ultrasound Report Signed Patient: Roslyn Borrero MR#: [id number] : 1985 Acct:[id number] Age/Sex: 40 / F ADM Date: 07/11/25 Loc: .US Attending Dr: Pina Cordero MD Ordering Physician: Pina Dixon MD Date of Service: 07/11/25 Procedure(s): US pelvic limited Accession Number(s): [id number] cc: Pina Dixon MD Reason for Exam: [...] OV> 07/11/25 1502 DD/ 1445 TD/TT: 07/11/25 145 Airplane Navigator: EDIS Procedure Note Donotuseinterpreter, Image - 07/11/2025 [place] [address] Ultrasound Report Signed Patient: Augustine Borrero#: [id number] : 1985Acct:[id number] Age/Sex: 40 / FADM Date: 07/11/25 Loc: HO.US Attending Dr: Pina Cordero MD Ordering Physician: Pina Dixon MD Date of Service: 07/11/25 Procedure(s): US pelvic limited Accession Number(s): [id number] cc: Pina Dixon MD Reason for Exam: [...] OV> 07/11/25 1502 DD/ 1445 TD/TT: 07/11/25 145 Airplane Navigator: EDIS us Pina Cordero MD IMG US PROCEDURES Final Result * Gram Stain Result (07/05/2025 2:40 PM EDT) 07/05/2025 2:40 PM EDT 07/05/2025 6:23 PM EDT Comment:Umbilicus Narrative [facility] - 07/09/2025 12:49 PM EDT UMBILLICAL AREA INFECTION Gram stain results: 4+ polys 2+ epithelial cells 1+ red blood cells 3+ Gram-positive cocci 4+ Gram-negative rods UMBILLICAL AREA INFECTION Granulicatella adiacens Quant Org ID 4+ Susc N/A Susceptibility not routinely performed on this isolate. 07/09/25 PER , ORGANISM SENT FOR SUSCEPTIBILITY TESTING Specimen Source: Umbilicus Pina Cordero MD HISTORICAL/NON OR DERABLE LABS Final Result Performing Organization Address [facility]/ZIP Co de Phone Number [facility] [address] [place] [phone] * Hepatitis C Antibody with Reflex to HCV, RNA, Quantitative, Real-Time PCR (02/29/2024 11:29 AM EDT) Hepatitis C Antibody Nonreactive Nonreactive [facility] Comment:Antibodies to HCV no t detected; does not exclude early acuteHCV infection. Blood Venous blood specimen / Unknown 02/29/2024 11:29 AM EDT 02/29/2024 12:58 PM EDT us Pina Cordero MD LAB BLOOD ORDERAB LES Final Result Performing Organization Address [facility]/ZIP Co de Phone Number [facility] [address] [place] [address] [phone] * HIV-1/2 Antigen and Antibodies, Fourth Generation, with Reflexes (02/29/2024 11:29 AM EDT) HIV AB/AG Nonreactive Nonreactive [facility] Comment:HIV-1 p24 Ag and/or HIV-1/HIV-2 Ab not detected.A test result that is nonreactive does not exclude thepossibility of exposure to or infection with HIV-1 and/orHIV-2. Nonreactive results in this assay for individualswith prior exposure to HIV-1 and/or HIV-2 may be due toantigen and antibody levels that are below the limit ofdetection of this assay.The Aqua Skin ScienceniSqurl HIV Ag/Ab Combo assay result andsupplemental assay results should be interpreted inconjunction with the patient's clinical presentation,history and other laboratory results. If the results areinconsistent with clinical evidence, additional testing issuggested to confirm the result. Blood Venous blood specimen / Unknown 02/29/2024 11:29 AM EDT 02/29/2024 12:58 PM EDT us Pina Cordero MD LAB BLOOD ORDERAB LES Final Result [facility] [address] [place] [phone] * (ABNORMAL) Lipid Panel, Standard (02/29/2024 11:29 AM EDT) Triglycerides 118 <150 mg/dL [facility] Comment:Desirable Triglyceri de: less than 150 mg/dLBorderline High Triglyceride 150-199 mg/dLHigh Triglyceride: 200-499 mg/dLVery High Triglyceride: greater than or equal to 5OO mg/dL Cholesterol 239(H) <200 mg/dL [facility] Comment:Desirable Cholestero l: less than 200 mg/dLBorderline High Cholesterol: 200-239 mg/dLHigh Cholesterol: greater than 239 mg/dL LDL Cholesterol Calculated 148(H) <100 mg/dL [facility] Comment:Desirable LDL: less than 100 mg/dLNear Optimal/Above Optimal LDL: 110- 129 mg/dLBorderline High LDL: 130-159 mg/dLHigh LDL: 160-189 mg/dLVery High LDL: greater than or equal to 190 mg/dL HDL Cholesterol 68 >40 mg/dL [facility] Comment:Desirable HDL: great er than 40 mg/dL Note: This HDL assay may give artificially low results in patients with liver disease. Blood Venous blood specimen / Unknown 02/29/2024 11:29 AM EDT 02/29/2024 12:58 PM EDT Pina Cordero MD LAB BLOOD ORDERAB LES Final Result [facility] [address] [place] [address] [phone] from Last 3 Months or Most Recently Relevant to Health Maintenance Insurance [employer] Care Teams Dowel Sander Operator Relationship Specialty Start Date End Date Pina Dixon MD [address] [place] [address] PCP - General Internal Medicine 12/22/22
--- OUTSIDE RECORDS SUMMARY | 2025-07-11 18:45 | XMS_ITS | Clinical Summary ---
Demographics Address [address] [facility] [address] [place] [address] Home Phone Preferred Language Tanzanian Marital Status Single Voodoo Affiliation Unknown Race White Ethnic Group Not or Lati no Author Organization [facility] Address [address] [facility] [address] [place] [phone] Phone Care Team Providers Care Traffic Director Name Role Phone Pcp, Unknown Primary Care [...] Medical Devices Not on file Insurance ACO * Guarantor: Roslyn Borrero Account Type Relation to Patient Date of Phone Billing Address Personal/Family Self 1985 [address] [facility], [place] [phone] [place] [address] [place] [address] [employer] [id number], [place] [phone] [place] [address] ACO * Guarantor: Roslyn Borrero Account Type Relation to Patient Date of Phone Billing Address Personal/Family Self 1985 [address] [facility] [address] * Guarantor: Roslyn Borrero Account Type Relation to Patient Date of Phone Billing Address Personal/Family Self 1985 [address] [facility], [place] [id number], [place] [address] Care Teams Traffic Director Relationship Specialty Start Date End Date Pcp, Unknown PCP - General 10/10/23 Additional Source Comments The information contained in this document represents components of the legal health record. It is not the complete legal health record.[facility]
== END 2025-07-11 14:23 | disposition home or self-care (01) ==
LOC: HO.US 14:22
PROVIDERS: PCP Student in an Organized Health Care Education/Training Program; Visit Provider Student in an Organized Health Care Education/Training Program
DX: L08.9 Local infection of the skin and subcutaneous tissue, unspecified (principal); T14.8XXA Other injury of unspecified body region, initial encounter
CPT/HCPCS: 76857

== ENCOUNTER → 2025-07-11 14:30 | Outpatient (BNV) | payer MEDICAID, SELFPAY | PROVIDERS: PCP Student in an Organized Health Care Education/Training Program; Visit Provider Radiology Diagnostic Radiology | DX: L02.216 Cutaneous abscess of umbilicus (principal) | CPT/HCPCS: 76857 ==

== ENCOUNTER 2025-07-16 13:32 | Outpatient (AMB) | payer MEDICAID, SELFPAY ==
--- NOTE | 2025-07-16 13:41 | MHC.OFFVIS ---
Vital Signs 07/16/25 13:52 Height 5 ft 5.5 in Weight 227 lb BMI 37.2 BP 108/53 L Blood Pressure Location Lt brachial Position Sitting Pulse 51 Intake Visit Reasons: abdominal abscess Intake Note: Patient is seen in office for evaluation of an abdominal abscess. Pt c/o: onset since November, had bloody discharge, on and off came back for the 3rd time, had ultrasound done, discharge was coming out of the belly button, currently painful, no discharge, all done with antibiotics on Wednesday us:07/01/25 Accompanied by: Self / Same As Patient Allergies codeine (CODEINE) Allergy (Unknown, Verified 07/16/25 13:50) STOMACH UPSET meperidine (From DEMEROL) Allergy (Unknown, Verified 07/16/25 13:50) ITCHING morphine (MORPHINE) Allergy (Unknown, Verified 07/16/25 13:50) ITCHING phenazopyridine (From PYRIDIUM) Allergy (Unknown, Verified 07/16/25 13:50) STOMACH UPSET tramadol (TRAMADOL) Allergy (Unknown, Verified 07/16/25 13:50) STOMACH UPSET ibuprofen (IBUPROFEN) Adverse Reaction (Unknown, Verified 07/16/25 13:50) ABD PAIN Medication List - Last Reconciled 07/16/25 by Enzo Tran MD albuterol sulfate 90 mcg/actuation (Ventolin HFA) 2 puffs inhalation Q6H PRN dextroamphetamine-amphetamine 20 mg 1 tab PO BID divalproex ER 500 mg PO BID HPI Comments Details: 40-year-old female patient presenting with complaints of umbilical discharge in his associated discomfort. The umbilical discharge has been occurring intermittently since November periods of sensation followed by recurrence. She reports a history of a cholecystectomy with an umbilical incision proximally 20 years ago with no reported complications postop. She also has a history of a section approximately 18 years ago as well as hysterectomy shortly after this. She was initially evaluated in the emergency department and [place] but subsequently left due to her dissatisfaction with the care provided. She was treated with 2 courses of antibiotics by her primary care and subsequently underwent ultrasound evaluation. This revealed a fluid collection with a track to the skin. Findings were suggestive of an abscess or cyst collection. She presents for further evaluation and possible excision of this collection. [facility] Medical History Asthma Chronic headache Bipolar disorder Surgical History History of carpal tunnel release Hx of hysterectomy Hx of cholecystectomy Social History Comment: count correct Patient Tobacco Use Status: Current everyday Tobacco user Tobacco use type: Cigarette Current occupational status: employed Current occupation: rt hand /[employer] Review of Systems Const All systems reviewed & are unremarkable except as noted in HPI and below Physical Exam Vital Signs: Last Vital Signs Pulse 51 07/16/25 13:52 BP 108/53 L 07/16/25 13:52 BMI result Body Mass Index 37.2 Const General: cooperative and no acute distress Nutritional Appearance: well nourished Orientation/consciousness: patient oriented x3 Limitations: no limitations HEENT Head: Yes normocephalic and Yes atraumatic Ears: hearing grossly normal bilaterally Teeth and gingiva: edentulous Resp Effort & Inspection: normal respiratory effort, no audible wheezes, no cough and no respiratory distress Cardio Jugular venous distension: no JVD GI Other: Deep umbilical tract with no drainage noted at this time. It is tender to palpation especially in the lower umbilicus. No redness or fluctuance is palpable at this time. 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 One possibility would be an infected urachal cyst or possible foreign body reaction to previous surgeries although these were many years ago. Patient continues to have pain with palpation of the umbilical region. We discussed exploration of the umbilicus with possible excision of the urachal cyst or foreign body. After review of the procedure, risks, and alternatives, she consents to the umbilical exploration. Coding Level of Care Code New Pt Level 4 (86511) Diagnoses Urachal cyst Q64.4
[2025-07-16 13:52] VITALS: BP 108/53; PULSE 51; BMI 37.2
== END 2025-07-16 14:09 | disposition home or self-care (01) ==
LOC: HO.HGS 13:33
PROVIDERS: PCP Student in an Organized Health Care Education/Training Program; Visit Provider Surgery
DX: Q64.4 Malformation of urachus (principal)
CPT/HCPCS: 99204

== ENCOUNTER → 2025-07-16 13:32 | Outpatient (BNVA) | payer MEDICAID, SELFPAY | PROVIDERS: PCP Student in an Organized Health Care Education/Training Program; Visit Provider Surgery | DX: Q64.4 Malformation of urachus (principal) | CPT/HCPCS: 99202 ==

== ENCOUNTER 2025-07-25 07:23 | Day surgery (SDC) | payer MEDICAID, SELFPAY ==
--- OUTSIDE RECORDS SUMMARY | 2025-07-17 13:00 | XMS_ITS | Encounter Summary ---
Author Organization [facility] Address [address] [place] [address] Care Team Providers Care Linen Folder Name Role Phone Unavailable Primary Care Provider Unavailabl e Encounter Details Date Type Department Care Team (Late st Contact Info) Description 07/17/2025 1:00 PM EST Behavioral Health Visit [facility] [address] [place] [phone] Itz San PMHNP [address] [place] [phone] Arrived Social History Tobacco Use Types Packs/Day Years Used Date Smoking Tobacco: Never Assessed Comments Unknown Sex and Gender Information Value Date Recorded Sex Assigned at Female 03/26/2025 10:41 AM PDT Legal Sex Female 10:41 AM PDT Gender Identity Female 03/26/2025 10:41 AM PDT Sexual Orientation Not on file documented as of this encounter Plan of Treatment Upcoming Encounters Date Type Department Care Team (Late st Contact Info) Description 08/14/2025 12:15 PM EST Behavioral Health Visit [facility] [address] [place] [phone] Itz San [facility] [address] [place] [phone] documented as of this encounter Visit Diagnoses Not on filedocumented in this encounter
--- OUTSIDE RECORDS SUMMARY | 2025-07-17 17:17 | XMS_ITS | Encounter Summary ---
Author Organization [employer] Address [address] [place] [address] [address] Care Team Providers Care Flue Dust Laborer Name Role Phone Pina Dixon MD Primary Care Pro vider Reason for Visit * Reason Comments Med Refill Encounter Details Date Type Department Care Team (Late Contact Info) Description 06/30/2023 Refill [facility]INE [address] [place] [address] [phone] Marcello Luna FNP Attention deficit hyperactivity disorder [...] Description 08/17/2025 10:45 AM EST Office Visit [facility] MED[facility]INE [address] [place] [address] [phone] Pina Dixon MD [address] [place], [place] [phone] 08/28/2025 2:30 PM EST Office Visit [facility] [address] [place] [address] [phone] Tiesha Ng, OD [address] [place] [address] documented as of this encounter Visit Diagnoses Diagnosis Attention deficit hyperactivity disorder (ADHD), unspecified ADHD type documented in this encounter Additional Health Concerns Assessment Noted Time PHQ-9 Depression Total Score: 9 05/27/20 23 11:09 AM EDT documented as of this encounter Care Teams Flue Dust Laborer Relationship Specialty Start Date End Date Pina Dixon MD [address] [place] [phone] PCP - General Internal Medicine 12/22/22 documented as of this encounter
--- OUTSIDE RECORDS SUMMARY | 2025-07-17 17:17 | XMS_ITS | Encounter Summary ---
Author Organization [employer] Address [address] [place] [address] [address] [place] [address] Care Team Providers Care Welder Fitter Gas Name Role Phone Pina Dixon MD Primary Care Pro vider Reason for Referral * Consultation (STAT) - Closed Specialty Diagnoses / Procedures Referred By Lisa mathis Referred To Contact General Surgery Diagnoses Abdominal wall abscess Pina Dixon MD [address] [place] [address] Phone: tel: fax: Enzo Tran MD [address] [place] [address] Drive [address] [place] [address] Phone: tel: fax: Referral ID Status Reason Start Date Expiration Date V isits Requested Visits Authorized [id number] Closed Specialty Services Required 07/13/2025 07/13/2026 12 12 * Imaging (STAT) - Closed Specialty Diagnoses / Procedures Referred By Contac t Referred To Contact Radiology Diagnoses Wound infection Procedures US [employer] Pina Dixon MD [address] [place] [address] Phone: tel: fax: [facility] [address] [place] [address] Phone: tel: fax: Referral ID Status Reason Start Date Expiration Date Visits Re quested Visits Authorized [id number] Closed 07/05/2025 07/05/2026 1 1 Encounter Details Date Type Department Care Team (Late st Contact Info) Description 07/05/2025 Orders Only [facility] [address] [place] [address] Pina Dixon MD [address] [place], [place] [phone] Wound infection (Primary Dx); Abdominal wall abscess Social History Tobacco Use Types Packs/Day Years [...] Description 08/17/2025 10:45 AM EST Office Visit [facility] [address] [place] [address] Pina Dixon MD [address] [place] [address] 08/28/2025 2:30 PM EST Office Visit [facility] OPTOMETRY [address] [place] [address] Tiesha Ng, OD [address] [place] [address] Scheduled Referrals Name Type Priority Associated Diagnoses Orde r Schedule Referral to General Surgery Outpatient Referral STAT Abdominal wall abscess Expected: 07/13/2025 (Approximate), Expires: 07/13/2026 documented as of this encounter Procedures Procedure [...] PM EDT Narrative 07/11/2025 3:04 PM EDT [address] [address] Ultrasound Report Signed Patient: Roslyn oBrrero MR#: [id number] : 1985 Acct:[id number] Age/Sex: 40 / F ADM Date: 07/11/25 Loc: HO.US Attending Dr: Pina Cordero MD Ordering Physician: Pina Dixon MD Date of Service: 07/11/25 Procedure(s): US pelvic limited Accession Number(s): [id number] cc: Pina Dixon MD Reason for Exam: [...] Rosa Saenz MD 07/11/2025 03:02 PM EDT Dictated By: Rosa Saenz MD Signed By: <Electronically signed by Rosa Saenz MD in OV> 07/11/25 1502 DD/ 1445 TD/TT: 07/11/25 1452 Catering Truck Operator: EDIS Procedure Note Donotuseinterpreter, Image - 07/11/2025 [place] [address] Ultrasound Report Signed Patient: Augustine Borrero#: [id number] : 1985Acct:[id number] Age/Sex: 40 / FADM Date: 07/11/25 Loc: HO.US Attending Dr: Pina Cordero MD Ordering Physician: Pina Dixon MD Date of Service: 07/11/25 Procedure(s): US pelvic limited Accession Number(s): [id number] cc: Pina Dixon MD Reason for Exam: [...] 07/11/25 1502 DD/ 1445 TD/TT: 07/11/25 1452 Catering Truck Operator: EDIS Pina Cordero MD IMG US PROCEDURES Final Result * Gram Stain Result (07/05/2025 2:40 PM EDT) 07/05/2025 2:40 PM EDT 07/05/2025 6:23 PM EDT Comment:Umbilicus Narrative [facility] - 07/09/2025 12:49 PM EDT [facility]BI[facility]A INFECTION Gram stain results: 4+ polys 2+ epithelial cells 1+ red blood cells 3+ Gram-positive cocci 4+ Gram-negative rods [facility]BILL[facility]A INFECTION Granulicatella adiacens Quant Org ID 4+ [facility] N/A Susceptibility not routinely performed on this isolate. 07/09/25 PER , ORGANISM SENT FOR SUSCEPTIBILITY TESTING Specimen Source: Umbilicus Pina Cordero MD HISTORICAL/NON OR DERABLE LABS Final Result [facility] [address] [place] [address] [phone] documented in this encounter Visit Diagnoses Diagnosis Wound infection- Primary Posttraumatic wound infection not elsewhere classified Abdominal wall abscess Cellulitis and abscess of trunk documented in this encounter Additional Health Concerns Assessment Noted Time PHQ-9 Depression Total Score: 1 01/20/20 24 2:34 PM EDT documented as of this encounter Care Teams Welder Fitter Gas Relationship Specialty Start Date End Date Pina Dixon MD [address] [place] [phone] PCP - General Internal Medicine 12/22/22 documented as of this encounter
--- OUTSIDE RECORDS SUMMARY | 2025-07-17 17:17 | XMS_ITS | Encounter Summary ---
Author Organization [employer] Address [address] [place] [address], [place] [address] Care Team Providers Care Manager Camp Name Role Phone Pina Dixon MD Primary Care Pro vider Reason for Visit * Reason Comments Med Refill Encounter Details Date Type Department Care Team (Late Contact Info) Description 07/05/2023 Refill [facility] MEDICINE [address] [place] [address] [phone] Marcello Luna FNP Attention deficit hyperactivity disorder [...] Description 08/17/2025 10:45 AM EST Office Visit [facility] MEDICINE [address] [place] [address] [phone] Pina Dixon MD [address] [place], [place] [phone] 08/28/2025 2:30 PM EST Office Visit [facility] OPTOMETRY [address] [place] [address] [phone] Tiesha Ng, OD [address] [place] [address] documented as of this encounter Visit Diagnoses Diagnosis Attention deficit hyperactivity disorder (ADHD), unspecified ADHD type documented in this encounter Additional Health Concerns Assessment Noted Time PHQ-9 Depression Total Score: 9 05/27/20 23 11:09 AM EDT documented as of this encounter Care Teams Manager Camp Relationship Specialty Start Date End Date Pina Dixon MD [address] [place] [phone] PCP - General Internal Medicine 12/22/22 documented as of this encounter
--- OUTSIDE RECORDS SUMMARY | 2025-07-17 17:17 | XMS_ITS | Encounter Summary ---
Author Organization [employer] Address [address] [place] [address] [place], [place] [address] Care Team Providers Care Retail Loss Prevention Officer Name Role Phone Pina Dixon MD Primary Care Pro vider Reason for Visit * Reason Comments Med Refill Encounter Details Date Type Department Care Team (Late Contact Info) Description 07/06/2023 Refill [facility] [address] [place] [address] [phone] Marcello Luna FNP Attention deficit hyperactivity disorder [...] 10:45 AM EST Office Visit [facility] [address] [place] [address] [phone] Pina Dixon MD [address] [place], [place] [phone] 08/28/2025 2:30 PM EST Office Visit [facility] OPTOMETRY [address] [place] [address] [phone] Tiesha Ng, OD [address] [place] [address] documented as of this encounter Visit Diagnoses Diagnosis Attention deficit hyperactivity disorder (ADHD), unspecified ADHD type documented in this encounter Additional Health Concerns Assessment Noted Time PHQ-9 Depression Total Score: 9 05/27/20 23 11:09 AM EDT documented as of this encounter Care Teams Retail Loss Prevention Officer Relationship Specialty Start Date End Date Pina Dixon MD [address] [place] [phone] PCP - General Internal Medicine 12/22/22 documented as of this encounter
--- OUTSIDE RECORDS SUMMARY | 2025-07-17 17:17 | XMS_ITS | Clinical Summary ---
Author Organization [employer] Address 75 [facility] 7t [place] [address] Care Team Providers Care Psychiatric Technician Assistant Name Role Phone Pina Dixon MD Primary Care Pro vider Allergies Active Allergy Reactions Criticality Noted Date Comments Codeine 01/04/2019 Ibuprofen 01/04/2019 Morphine 01/04/2019 Phenazopyridine 2019 Phenytoin 2019 Tramadol 01/04/2019 Medications * This document contains information received from the source organization and may not represent a complete record from that organization. divalproex (Depakote ER) 500 MG 24 hr tabletIndication s:Bipolar affective disorder, remission status unspecified (CMS/HCC) ([facility]) TAKE 1 TABLET BY MOUTH TWICE A DAY. DO NOT CRUSH, CHEW OR SPLIT. 180 tablet 07/05/20 25 Active albuterol 108 (90 Base) MCG/ACT inhaler Inhale 2 puffs every 6 (six) hours if needed for wheezing. 18 g 2 07/05/20 25 026 Active acetaminophen (Tylenol Extra Strength) 500 MG tablet Take 1 tablet (500 mg) by mouth every 8 (eight) hours if needed for mild pain or moderate pain. 30 tablet 1 07/05/20 25 025 Active amphetamine-dext roamphetamine (Adderall) 20 MG tabletIndication s:Attention deficit hyperactivity disorder (ADHD), unspecified ADHD type TAKE 1 TABLET BY MOUTH TWICE A DAY 60 tablet 07/13/20 25 Active nicotine (Nicoderm CQ) 14 MG/24HR patch Place 1 patch on the skin 1 (one) time each day at the same time. 42 patch 1 02/29/20 24 025 Discontinued(Ot her) nicotine polacrilex (Nicotine Mini) 2 MG lozenge Dissolve 1 lozenge (2 mg) in the mouth every 2 (two) hours if needed for smoking cessation. 100 lozenge 02/29/20 24 025 Discontinued(Ot her) albuterol 108 (90 Base) MCG/ACT inhaler Inhale 2 puffs every 6 (six) hours if needed for wheezing. 18 g 2 02/29/20 24 025 Discontinued(Re order (will not trigger notification to Pharmacy)) divalproex (Depakote ER) 500 MG 24 hr tabletIndication s:Bipolar affective disorder, remission status unspecified (CMS/HCC) ([facility]) TAKE 1 TABLET BY MOUTH TWICE A DAY. DO NOT CRUSH, CHEW OR SPLIT. 180 tablet 04/05/20 25 025 Discontinued amphetamine-dext roamphetamine (Adderall) 20 MG tabletIndication s:Attention deficit hyperactivity disorder (ADHD), unspecified ADHD type TAKE 1 TABLET BY MOUTH TWICE A DAY Do not start before June 15, 2025. 60 tablet 06/15/20 25 025 Discontinued(Re order (will not trigger notification to Pharmacy)) sulfamethoxazole -trimethoprim (Bactrim DS) 800-160 MG tabletIndication s:Cellulitis, unspecified cellulitis site Take 1 tablet by mouth 2 times daily for 7 days. 14 tablet 07/05/20 25 025 cephalexin (Keflex) 500 MG capsuleIndicatio ns:Cellulitis, unspecified cellulitis site Take 1 capsule (500 mg) by mouth 3 times daily for 7 days. 21 capsule 07/05/20 25 025 Active Problems Problem Noted Date Diagnosed Date [...] management. For any issues or concerns, call [facility]. All her questions were answered. She [...] Encounters Date Type Department Care Team Description 07/13/2025 Refill [facility] MEDICINE [address] [place] [phone] Pina Dixon MD Attention deficit hyperactivity disorder (ADHD), unspecified ADHD type 07/09/2025 Results Follow-Up [address] [address] Pina Dixon MD Gram Stain Result, US Pelvis Limited 07/05/2025 1:45 PM EDT Office Visit [address] [address] Pina Dixon MD Breast cancer screening by mammogram (Primary Dx); Health care maintenance; Cellulitis, unspecified cellulitis site; Encounter for immunization; Wound infection; Dietary counseling; Exercise counseling; Bipolar affective disorder, remission status unspecified (CMS/HCC) ([facility]); Mild intermittent asthma, unspecified whether complicated; Attention deficit hyperactivity disorder (ADHD), unspecified ADHD type; Anxiety 07/05/2025 Orders Only [address] [address] Pina Dixon MD Wound infection (Primary Dx); Abdominal wall abscess 07/05/2025 Telephone [facility] [address] [place] [address] Pina Dixon MD US ABDOMINAL WALL ORDER 07/05/2025 Travel 07/05/2025 Refill [facility] [address] [place], [place] [phone] Pina Dixon MD Bipolar affective disorder, remission status unspecified (CMS/HCC) (HCC) 07/04/2025 Telephone [facility] MEDICINE [address] [place] [address] Pina Dixon MD Nurse Triage 06/13/[address] [address] Pina Dixon MD Med Refill 05/25/[address] [phone] Pina Dixon MD dec recall 05/18/2025 Telephone [facility] [address] [place] [address] Pina Dixon MD Call Back Request 05/17/2025 Refill [facility] MED[facility]INE [address] [facility] [place] [address] Pina Dixon MD Attention deficit hyperactivity disorder [...] got money to buy more: Sometimes True 06/18/ 2024 Within the past 12 months,th e food [...] Description 08/17/2025 10:45 AM EST Office Visit [facility] MEDICINE [address] [place], [place] [phone] Pina Dixon MD [address] [place], [place] [phone] 08/28/2025 2:30 PM EST Office Visit [facility] OPTOMETRY [address] [place] [address] [phone] Tiesha Ng, OD [address] [place] [address] Health Maintenance Due Date Last Done Comments [...] PM EDT Narrative 07/11/2025 3:04 PM EDT [place] [address] Ultrasound Report Signed Patient: Roslyn Borrero MR#: [id number] : 1985 Acct:[id number] Age/Sex: 40 / F ADM Date: 07/11/25 Loc: .US Attending Dr: Pina Cordero MD Ordering Physician: Pina Dixon MD Date of Service: 07/11/25 Procedure(s): US pelvic limited Accession Number(s): [id number] cc: Pina Dixon MD Reason for Exam: [...] 07/11/25 1502 DD/ 1445 TD/TT: 07/11/25 1452 Gas Line Installer: EDIS Procedure Note Donotuseinterpreter, Image - 07/11/2025 [place] [address] Ultrasound Report Signed Patient: Augustine Borrero#: [id number] : 1985Acct:[id number] Age/Sex: 40 / FADM Date: 07/11/25 Loc: HO.US Attending Dr: Pina Cordero MD Ordering Physician: Pina Dixon MD Date of Service: 07/11/25 Procedure(s): US pelvic limited Accession Number(s): [id number] cc: Pina Dixon MD Reason for Exam: [...] 07/11/25 1502 DD/ 1445 TD/TT: 07/11/25 1452 Gas Line Installer: EDIS Pina Cordero MD IMG US PROCEDURES Final Result * Gram Stain Result (07/05/2025 2:40 PM EDT) 07/05/2025 2:40 PM EDT 07/05/2025 6:23 PM EDT Comment:Umbilicus Narrative [facility] - 07/09/2025 12:49 PM EDT [...] DERABLE LABS Final Result Performing Organization Address [facility] Co de Phone Number [facility] [address] [place] [phone] * Hepatitis C Antibody with Reflex to HCV, RNA, Quantitative, Real-Time PCR (02/29/2024 11:29 AM EDT) Hepatitis C Antibody Nonreactive Nonreactive [facility] Comment:Antibodies to HCV no t detected; does not exclude early acuteHCV infection. Blood Venous blood specimen / Unknown 02/29/2024 11:29 AM EDT 02/29/2024 12:58 PM EDT Pina Cordero MD LAB BLOOD ORDERAB LES Final Result Performing Organization Address [facility]/ZIP Co de Phone Number [facility] [address] [place] [phone] * HIV-1/2 Antigen and Antibodies, Fourth Generation, with Reflexes (02/29/2024 11:29 AM EDT) HIV AB/AG Nonreactive Nonreactive [facility] Comment:HIV-1 p24 Ag and/or HIV-1/HIV-2 Ab not detected.A test result that is nonreactive does not exclude thepossibility of exposure to or infection with HIV-1 and/orHIV-2. Nonreactive results in this assay for individualswith prior exposure to HIV-1 and/or HIV-2 may be due toantigen and antibody levels that are below the limit ofdetection of this assay.The [email or web address] HIV Ag/Ab Combo assay result andsupplemental assay results should be interpreted inconjunction with the patient's clinical presentation,history and other laboratory results. If the results areinconsistent with clinical evidence, additional testing issuggested to confirm the result. Blood Venous blood specimen / Unknown 02/29/2024 11:29 AM EDT 02/29/2024 12:58 PM EDT us Pina Cordero MD LAB BLOOD ORDERAB LES Final Result [facility] [address] [place] [phone] * (ABNORMAL) Lipid Panel, Standard (02/29/2024 11:29 AM EDT) Triglycerides 118 <150 mg/dL [facility] Comment:Desirable Triglyceri de: less than 150 mg/dLBorderline High Triglyceride 150-199 mg/dLHigh Triglyceride: 200-499 mg/dLVery High Triglyceride: greater than or equal to 5OO mg/dL Cholesterol 239(H) <200 mg/dL [facility] Comment:Desirable Cholestero l: less than 200 mg/dLBorderline High Cholesterol: 200-239 mg/dLHigh Cholesterol: greater than 239 mg/dL LDL Cholesterol Calculated 148(H) <100 mg/dL [facility] Comment:Desirable LDL: less than 100 mg/dLNear Optimal/Above Optimal LDL: 110- 129 mg/dLBorderline High LDL: 130-159 mg/dLHigh LDL: 160-189 mg/dLVery High LDL: greater than or equal to 190 mg/dL HDL Cholesterol 68 >40 mg/dL [facility] Comment:Desirable HDL: great er than 40 mg/dL Note: This HDL assay may give artificially low results in patients with liver disease. Blood Venous blood specimen / Unknown 02/29/2024 11:29 AM EDT 02/29/2024 12:58 PM EDT us Pina Cordero MD LAB BLOOD ORDERAB LES Final Result [facility] [address] [place] [phone] from Last 3 Months or Most Recently Relevant to Health Maintenance Insurance C3 * Guarantor: Roslyn Borrero Account Type Relation to Patient Date of Phone Billing Address Personal/Family Self [id number] Care Teams Psychiatric Technician Assistant Relationship Specialty Start Date End Date Pina Dixon MD [address] [place] [phone] PCP - General Internal Medicine 12/22/22
--- OUTSIDE RECORDS SUMMARY | 2025-07-17 17:17 | XMS_ITS | Encounter Summary ---
Author Organization [employer] Address 75 [facility] 7 [place] [address] Care Team Providers Care Director Of Occupational Therapy Name Role Phone Pina Dixon MD Primary Care Pro vider Reason for Visit * Reason Onset Date Comments Prior Authorization 01/07/2023 Encounter Details Date Type Department Care Team ([facility] st Contact Info) Description 01/07/2023 Telephone [facility] MEDICINE [address] [place], [place] [phone] Pina Dixon MD [address] [place] [address] Prior Authorization Social History Tobacco Use Types [...] Medication previously sent. Please contact pt at [phone] * Telephone Encounter - Severo William - 01/07/2023 9:36 AM EDT Tc from pt requesting a PA for medication adderall 20 mg. Please contact pt at [phone] documented in this encounter Plan of Treatment Upcoming Encounters Date Type Department Care Team (Late st Contact Info) Description 08/17/2025 10:45 AM EST Office Visit [facility] MEDICINE [address] [place] [address] Pina Dixon MD 230 [place] [address] 08/28/2025 2:30 PM EST Office Visit [facility] OPTOMETRY [address] [place] [address] Tiesha Ng, OD [address] [place] [address] documented as of this encounter Visit Diagnoses Not on filedocumented in this encounter Care Teams Director Of Occupational Therapy Relationship Specialty Start Date End Date Pina Dixon MD [address] [place] [address] PCP - General Internal Medicine 12/22/22 documented as of this encounter
--- OUTSIDE RECORDS SUMMARY | 2025-07-17 17:17 | XMS_ITS | Clinical Summary ---
Demographics Address [address] [facility] [address] [place] [address] Home Phone Preferred Language [place]ome[place] Marital Status Single Protestant Affiliation Unknown Race White Ethnic Group Not or Lati no Author Organization [facility] Address [address] [facility] [address] [place] [phone] Phone Care Team Providers Care Senior Manager Creative Services Name Role Phone Pcp, Unknown Primary Care [...] Medical Devices Not on file Insurance [place] [address] [place] [address] [place] [address] [employer] [id number], [place] [id number] [place] [address] [place] [id number], [place] [address] Care Teams Senior Manager Creative Services Relationship Specialty Start Date End Date Pcp, Unknown PCP - General 10/10/23 Additional Source Comments The information contained in this document represents components of the legal health record. It is not the complete legal health record.[facility]
--- OUTSIDE RECORDS SUMMARY | 2025-07-17 17:17 | XMS_ITS | Encounter Summary ---
Author Organization [employer] Address 75 [facility] 7t [place] [address] Care Team Providers Care Retail Visual Merchandiser Name Role Phone Ford Gabriel Primary Care Provider Unavail able Pina Dixon MD Primary Care Pro vider Reason for Visit * Reason Onset Date Comments Med Refill 10/01/2022 Encounter Details Date Type Department Care Team (Late st Contact Info) Description 10/01/2022 Refill [facility] MEDICINE [address] [place] [address] Ford Gabriel AGNP Attention deficit hyperactivity disorder [...] Adderall 20 mg Please contact pt at [phone] documented in this encounter Plan of Treatment Upcoming Encounters Date Type Department Care Team (Late st Contact Info) Description 08/17/2025 10:45 AM EST Office Visit [facility] MEDICINE [address] [place] [address] Pina Dixon MD 230 [place] [address] 08/28/2025 2:30 PM EST Office Visit [facility] OPTOMETRY [address] [place], [place] [phone] Tiesha Ng, OD [address] [place], [place] [phone] documented as of this encounter Visit Diagnoses Diagnosis Attention deficit hyperactivity disorder (ADHD), unspecified ADHD type documented in this encounter Care Teams Retail Visual Merchandiser Relationship Specialty Start Date End Date Ford Gabriel AGNP PCP - General Family Medicine 09/03/22 12/21/22 Pina Dixon MD [address] [place] [phone] PCP - General Internal Medicine 12/22/22 documented as of this encounter
--- OUTSIDE RECORDS SUMMARY | 2025-07-17 17:17 | XMS_ITS | Encounter Summary ---
Author Organization [employer] Address 75 [facility] 7 [place] [address] Care Team Providers Care Event Attendant Name Role Phone Pina Dixon MD Primary Care Pro vider Reason for Visit * Reason Onset Date Comments Med Refill 07/13/2025 Encounter Details Date Type Department Care Team (Late st Contact Info) Description 07/13/2025 Refill [facility] MEDICINE [address] [place], [place] [phone] Pina Dixon MD [address] [place], [place] [phone] Attention deficit hyperactivity disorder (ADHD), unspecified ADHD [...] the past 12 months, has t he [employer], gas, oil or water company threatened to [...] encounter Miscellaneous Notes * Telephone Encounter - Melanie Boyce LPN - 07/13/2025 12:14 PM EDT Dairy Inspector ck on 07.13.25 and last filled 06.20.25 Last seen 07.05.25 * Telephone Encounter - Jayshree Mart - 07/13/2025 12:07 PM EDT TC from pt requesting medication refill. Medications needing refill : - amphetamine-dextroamphetamine (Adderall) 20 MG tablet To be sent to: - [facility]/pharmacy #[id number] - [place] - [address] [place] [address] documented in this encounter Plan of Treatment Upcoming Encounters Date Type Department Care Team (Late st Contact Info) Description 08/17/2025 10:45 AM EST Office Visit [facility] MEDICINE [address] [place] [phone] Pina Dixon MD [address] [place] [address] 08/28/2025 2:30 PM EST Office Visit [facility] OPTOMETRY [address] [place], [place] [phone] Berenice Tiesha, OD [address] [place], [place] [phone] documented as of this encounter Visit Diagnoses Diagnosis Attention deficit hyperactivity disorder (ADHD), unspecified ADHD type documented in this encounter Additional Health Concerns Assessment Noted Time PHQ-9 Depression Total Score: 1 01/20/20 24 2:34 PM EDT documented as of this encounter Care Teams Event Attendant Relationship Specialty Start Date End Date Pina Dixon MD [address] [place], [place] [phone] PCP - General Internal Medicine 12/22/22 documented as of this encounter
--- OUTSIDE RECORDS SUMMARY | 2025-07-17 17:17 | XMS_ITS | Clinical Summary ---
Author Organization [facility] Address [address] [place] [address] Care Team Providers Care Oracle Programmer Analyst Name Role Phone Unavailable Primary Care Provider Unavailabl e Source Comments PLEASE NOTE, if this patient is a minor, it may be UNLAWFUL to discuss sensitive information that is contained in these records (such as FAMILY PLANNING, MENTAL HEALTH or SUBSTANCE ABUSE) with the minor patient's parent or other person without the patient's specific authorization.[facility] Medications dextroamphetami ne-amphetamine (ADDERALL) 20 mg tablet Take 1 Tablet by mouth 2 (two) times daily. 4 Active divalproex (DEPAKOTE ER) 500 mg 24 hr tabletIndicatio ns:bipolar disorder in remission Take 500 mg by mouth 2 (two) times daily Indications: bipolar disorder in remission. 3 Active albuterol HFA 90 mcg/actuation inhaler Inhale 2 Puffs into the lungs every 6 (six) hours as needed. 5 07/05/20 26 Active diphenhydrAMINE HCL (BENADRYL) 25 mg tablet Take 2 Tablets by mouth nightly at bedtime as needed for sleep. 60 Tablet 2 5 Active diphenhydrAMINE HCL (BENADRYL) 25 mg tablet Take 2 Tablets by mouth nightly at bedtime as needed for sleep. 60 Tablet 2 5 07/17/20 25 Discontinu ed(Reorder (E-Cancel Not Sent)) Encounters Date Type Department Care Team Description 07/17/2025 1:00 PM EST Behavioral Health Visit [facility] [address] [place] [address] [place] [phone] Itz San, PMHNP Arrived from Last 3 Months Social History Tobacco Use Types Packs/Day Years [...] EST Behavioral Health Visit [facility] [address] [place] [phone] Itz San, PMHNP [address] [facility] [place] [phone] Health Maintenance Due Date Last Done Comments Anxiety Screening 1985 HPV Screening (self-collect) 1985 HPV [...] Drug Screen 09/13/2024 Depression Annual Screen 09/13/2024 Diabetes Screening 02/28/2027 02/29/2024, 02/19/2021 Lipid Screening 02/28/2029 02/29/2024 HIV Screening Completed 02/29/2024, 02/29/2024 Hepatitis C Screening Completed 02/29/2024 [id number] Completed 07/05/2025 Imm-Influenza Completed 07/05/2025, 07/14, 09/21/2019, Additional history exists Cervical Ablation/Cold-Knife Conization Discontinued Cervical Cryotherapy Discontinued Colposcopy Discontinued Excision/Leep Discontinued HPV Genotyping Discontinued Vaginal Pap Discontinued Vulvoscopy Discontinued Insurance [employer]
--- OUTSIDE RECORDS SUMMARY | 2025-07-17 17:17 | XMS_ITS | Encounter Summary ---
Author Organization [employer] Address 75 [facility] 7t [place] [address] Care Team Providers Care Border Guard Name Role Phone Pina Dixon MD Primary Care Pro vider Encounter Details Date Type Department Care Team ([facility] st Contact Info) Description 07/09/2025 Results Follow-Up [facility] MEDICINE [address] [place] [address] Pina Dixon MD [address] [place] [address] Gram Stain Result, US Pelvis Limited Social History Tobacco Use Types Packs/Day Years [...] Encounter Note - Pina Cordero MD - 07/12/2025 11:30 PM EDT -US pelvic limited 07/11/2025 There is a complex fluid collection with thickened wall and internal echoes in the periumbilical region measuring 2.2 x 1.9 x 1.1 cm questionable for a small abscess. Wall demonstrates slight increased vascularity. There is question of a hypoechoic tract extending to the skin. ---- Will inform pt and will advise for ER evaluation for drainage , surgical referral may take longer unless can get earlier apt * Result Encounter Note - Pina Cordero MD - 07/09/2025 12:48 PM EDT I called [facility] Microbiology lab Confirmed they can see in [...] 10:45 AM EST Office Visit [facility] MEDICINE [address] [place] [address] Pina Dixon MD [address] [place] [address] 08/28/2025 2:30 PM EST Office Visit [facility] OPTOMETRY [address] [place] [address] Tiesha Ng, OD [address] [place] [address] documented as of this encounter Visit Diagnoses Not on filedocumented in this encounter Additional Health Concerns Assessment Noted Time PHQ-9 Depression Total Score: 1 01/20/20 24 2:34 PM EDT documented as of this encounter Care Teams Border Guard Relationship Specialty Start Date End Date Pina Dixon MD [address] [place], [place] [phone] PCP - General Internal Medicine 12/22/22 documented as of this encounter
--- OUTSIDE RECORDS SUMMARY | 2025-07-17 17:17 | XMS_ITS | Encounter Summary ---
Author Organization [employer] Address [address] [place] [address] 7 [place] [address] Care Team Providers Care Shellfish Weigher Name Role Phone Pina Dixon MD Primary Care Pro vider Reason for Visit * Reason Onset Date Comments Nurse Triage 11/02/2023 Encounter Details Date Type Department Care Team (Late st Contact Info) Description 11/02/2023 Telephone [facility] MEDICINE [address] [place], [place] [phone] Pina Dixon MD [address] [place] [address] Nurse Triage Social History Tobacco Use Types [...] 7th rib. Pt was originally seen in [facility] 10/10/23 and also at [facility] 10/25/23 due to continued left sided [...] provider for ED follow up. Apt with PEDIATRIC NEUROPSYCHOLOGIST [facility] 11/09/23 @ 1115am. Insurance is verified [...] 10:45 AM EST Office Visit [facility] MEDICINE [address] [place] [address] Pina Dixon MD [address] [place], [place] [phone] 08/28/2025 2:30 PM EST Office Visit [facility] OPTOMETRY [address] [place] [address] Tiesha Ng, OD [address] [place] [address] documented as of this encounter Visit Diagnoses Not on filedocumented in this encounter Additional Health Concerns Assessment Noted Time PHQ-9 Depression Total Score: 9 10/11/19 24 3:52 PM EST documented as of this encounter Care Teams Shellfish Weigher Relationship Specialty Start Date End Date Pina Dixon MD [address] [place] [phone] PCP - General Internal Medicine 12/22/22 documented as of this encounter
--- NOTE | 2025-07-20 13:19 | HO.ANESPROP2 ---
Documented by User: Roslyn Streeter NP 07/20/25 13:19 HPI - Anesthesia Eval Consult details Narrative: 40yo F for Exploration of Umbilicus PMFSH Active Problems Active Problems: All Active Problems Urachal cyst (Acute) Trimalleolar fracture of right ankle (Acute) Past Medical History Medical History Asthma Chronic headache Bipolar disorder Family History Family history of problems with anesthesia: No Surgical History Surgical History History of ankle surgery History of carpal tunnel release Hx of hysterectomy Hx of cholecystectomy History of Problems with Anesthesia: No Social History Social History Comment: count correct Patient Tobacco Use Status: Current everyday Tobacco user Tobacco use type: Cigarette Have you been hit, kicked, punched, or otherwise hurt by someone within the past year? If so, by whom?: No Are you DNR?: No Advance Directives: No Advance Directives Information Provided: Yes Current occupational status: employed Current occupation: rt hand /dominos Meds Allergies Allergy/AdvReac Type Severity Reaction Status Date / Time codeine (CODEINE) Allergy Intermediate STOMACH Verified 07/25/25 07:50 UPSET meperidine (From DEMEROL) Allergy Intermediate ITCHING Verified 07/25/25 07:50 morphine (MORPHINE) Allergy Intermediate ITCHING Verified 07/25/25 07:50 phenazopyridine (From Allergy Intermediate STOMACH Verified 07/25/25 07:50 PYRIDIUM) UPSET tramadol (TRAMADOL) Allergy Intermediate STOMACH Verified 07/25/25 07:50 UPSET ibuprofen (IBUPROFEN) AdvReac Intermediate ABD PAIN Verified 07/25/25 07:50 Home Medications ?Medication ?Instructions ?Recorded ?Confirmed ?Last Taken ?Type dextroamphetamine-amphetamine 20 1 tab PO BID 03/12/22 07/25/25 07/24/25 History mg tablet divalproex 500 mg tablet,extended 500 mg PO BID 03/12/22 07/25/25 07/24/25 History release 24 hr albuterol sulfate 90 mcg/actuation 2 puff inhalation Q6H PRN wheezing 07/16/25 07/25/25 05/25/25 History aerosol inhaler (Ventolin HFA) Assessment and Plan Assessment Anesthesia Assessment: Chart Reviewed Final Anesthetic Review Family History of Problems with Anesthesia: No History of Problems with Anesthesia: No Documented by User: Rosa Che MD 07/25/25 08:14 PMF Past Medical History Medical History Asthma Chronic headache Bipolar disorder Surgical History Surgical History History of ankle surgery History of carpal tunnel release Hx of hysterectomy Hx of cholecystectomy Social History Social History Comment: count correct Patient Tobacco Use Status: Current everyday Tobacco user Tobacco use type: Cigarette Have you been hit, kicked, punched, or otherwise hurt by someone within the past year? If so, by whom?: No Are you DNR?: No Advance Directives: No Advance Directives Information Provided: Yes Current occupational status: employed Current occupation: rt hand /dominos Meds Allergies Allergy/AdvReac Type Severity Reaction Status Date / Time codeine (CODEINE) Allergy Intermediate STOMACH Verified 07/25/25 07:50 UPSET meperidine (From DEMEROL) Allergy Intermediate ITCHING Verified 07/25/25 07:50 morphine (MORPHINE) Allergy Intermediate ITCHING Verified 07/25/25 07:50 phenazopyridine (From Allergy Intermediate STOMACH Verified 07/25/25 07:50 PYRIDIUM) UPSET tramadol (TRAMADOL) Allergy Intermediate STOMACH Verified 07/25/25 07:50 UPSET ibuprofen (IBUPROFEN) AdvReac Intermediate ABD PAIN Verified 07/25/25 07:50 Home Medications ?Medication ?Instructions ?Recorded ?Confirmed ?Last Taken ?Type dextroamphetamine-amphetamine 20 1 tab PO BID 03/12/22 07/25/25 07/24/25 History mg tablet divalproex 500 mg tablet,extended 500 mg PO BID 03/12/22 07/25/25 07/24/25 History release 24 hr albuterol sulfate 90 mcg/actuation 2 puff inhalation Q6H PRN wheezing 07/16/25 07/25/25 05/25/25 History aerosol inhaler (Ventolin HFA) Exam Airway Mallampati Class: II (edentulous) TM Dist: >3cm Neck ROM: Full Loose/Missing/Broken Teeth: Yes, Upper and Lower Heart: RRR Lungs: CTA Assessment and Plan Assessment Anesthesia Assessment: Anesthesia Plan Discussed Final Anesthetic Review NPO: Yes ASA Class: II Final Preanesthetic Review: Meds/Allgs Chart Reviewed, Consent Obtained/Reviewed and Anes Risks/Benef Reviewed Patient Risk: Low Procedure Risk: Low Anesthetic Plan Anesthetic Plan: GA Disposition: Standard PACU
[2025-07-25 05:18] VITALS: BMI 37.8
[2025-07-25 07:41] VITALS: BP 126/80; PULSE 80; RESP 20; TEMP 36.9; O2SAT 95; BMI 38.3
[2025-07-25] MEDS: Lactated Ringers 1,000 ML 100 ML IVCONT (07:51)
--- NOTE | 2025-07-25 08:26 | MHC.SHP ---
Pre-Procedural Eval Section A - 24 Hr Update-Section A only Date of Service: 07/25/25 The patient is an INPATIENT: No Changes since office visit: Yes Patient answered all questions; No Cold of Flu in the past 2 weeks, No New Medical Problems and No Changes in Medication The patient has been examined within 24 hours of the surgical procedure. The History & Physical has been completed within 30 days and I have reviewed it.: Yes Section B - Complete if H&P > 30 days Chief Complaint: Malformation of urachus Allergies: Allergies Allergy/AdvReac Type Severity Reaction Status Date / Time codeine (CODEINE) Allergy Intermediate STOMACH Verified 07/25/25 07:50 UPSET meperidine (From DEMEROL) Allergy Intermediate ITCHING Verified 07/25/25 07:50 morphine (MORPHINE) Allergy Intermediate ITCHING Verified 07/25/25 07:50 phenazopyridine (From Allergy Intermediate STOMACH Verified 07/25/25 07:50 PYRIDIUM) UPSET tramadol (TRAMADOL) Allergy Intermediate STOMACH Verified 07/25/25 07:50 UPSET ibuprofen (IBUPROFEN) AdvReac Intermediate ABD PAIN Verified 07/25/25 07:50 Plan Diagnosis/Plan: Unchanged I have reviewed the history and physical and performed a pertinent physical examination on my patient. No changes have occurred unless specified. Time Spent With Patient Time: Total time managing care of this patient today ____ minutes.
--- NOTE | 2025-07-25 09:42 | W.PM.OPN ---
Operative Note Operative Note Date of Service: 07/25/25 Narrative: Preoperative diagnosis: Umbilical drainage, chronic Postoperative diagnosis: Same Procedure: Exploration umbilicus Surgeon: Enzo Tran MD [employer] Professor: Salome Nugent PA-C; Malcolm Moeller PA-C Anesthesia: General LMA Indications for procedure: 40-year-old female patient presenting with intermittent episodes of drainage from her umbilicus of unknown etiology. No palpable hernia or masses appreciated. She has had previous surgery in the area including laparoscopic cholecystectomy and hysterectomy. Operative findings: Negative examination. Specimen: Possible fistulous track Estimated blood loss: 2 mL Complications: None Procedure details: Patient was brought to the OR and placed in a supine position. After administering general anesthesia the patient's abdomen was prepped with ChloraPrep and draped in a sterile fashion. A surgical time-out was called the consent confirmed. Patient received preoperative antibiotics and Venodyne boots were in place. Local anesthesia was then infiltrated around the umbilicus. A curvilinear incision was made below the umbilicus over her previous abdominal incision. This was carried out through subcutaneous tissue down to fascia. An apparent track was noted emanating from the umbilical skin which was excised and ligated. This was sent as a possible fistulous track. Dissection was continued down to the fascia and the umbilical skin was then lifted off the fascia. A small umbilical hernia was identified. This was closed primarily using a [id number]-[id number] 0 Polysorb suture. No other fluid collection, cyst or fascial defect was identified. Wounds were irrigated with saline solution and suctioned dry. Umbilical skin was reattached to the fascia using a 3-0 Polysorb suture. Dermis was reapproximated using interrupted 3-0 Polysorb sutures. Skin was closed using a running subcuticular 4-0 Polysorb suture. Steri-Strips, 4 x 4 gauze and Tegaderm were then applied. The patient tolerated the procedure well. Sponge, instrument, and needle counts reported as correct. The patient was transferred to PACU in stable condition.
[2025-07-25 09:48] VITALS: BP 106/72; PULSE 93; RESP 15; TEMP 36.4; O2SAT 99
[2025-07-25 09:53] VITALS: BP 114/64; PULSE 82; RESP 13; RESP 14; O2SAT 96
[2025-07-25 09:58] VITALS: BP 115/68; PULSE 77; RESP 14; O2SAT 96
[2025-07-25 10:03] VITALS: BP 107/68; PULSE 65; RESP 13; O2SAT 98
[2025-07-25 10:14] VITALS: BP 105/72; PULSE 67; RESP 13; TEMP 36.3; O2SAT 96
== END 2025-07-25 10:48 | disposition home or self-care (01) ==
PROVIDERS: PCP Student in an Organized Health Care Education/Training Program; Visit Provider Surgery
PROC: (CPT 49000; principal; 2025-07-25 09:00)
DX: Q64.4 Malformation of urachus (principal); R10.33 Periumbilical pain; L08.82 Omphalitis not of newborn; J45.909 Unspecified asthma, uncomplicated; F31.9 Bipolar disorder, unspecified; Z90.49 Acquired absence of other specified parts of digestive tract; Z90.710 Acquired absence of both cervix and uterus; F17.210 Nicotine dependence, cigarettes, uncomplicated; Z88.5 Allergy status to narcotic agent; Z88.6 Allergy status to analgesic agent; Z88.8 Allergy status to other drugs, medicaments and biological substances
CPT/HCPCS: 49000; 88304; J0690; J1100; J2003; J2250; J2405; J2704; J3010

== ENCOUNTER → 2025-07-25 07:23 | Outpatient (BNV) | payer MEDICAID, SELFPAY | PROVIDERS: PCP Student in an Organized Health Care Education/Training Program; Visit Provider Surgery | DX: D21.4 Benign neoplasm of connective and other soft tissue of abdomen (principal) | CPT/HCPCS: 49250 ==

== ENCOUNTER 2025-08-06 09:44 | Outpatient (AMB) | payer MEDICAID, SELFPAY ==
--- NOTE | 2025-08-06 10:07 | A.OFFVIS_ITS ---
Vital Signs 3 08/06/25 10:18 Height 5 ft 5 in Weight 230 lb BMI 38.3 BP 108/53 L Blood Pressure Location Lt brachial Position Sitting Pulse 68 Intake Visit Reasons: S/P exploration of umbilicus Intake Note: Patient is seen in office for post op assessment post exploration of the umbilicus. Pt c/o:admits to minimal pain when applying pressure Buy Boat Operator Required: No Accompanied by: Family/Other Allergies codeine (CODEINE) Allergy (Intermediate, Verified 08/06/25 10:18) STOMACH UPSET meperidine (From DEMEROL) Allergy (Intermediate, Verified 08/06/25 10:18) ITCHING morphine (MORPHINE) Allergy (Intermediate, Verified 08/06/25 10:18) ITCHING phenazopyridine (From PYRIDIUM) Allergy (Intermediate, Verified 08/06/25 10:18) STOMACH UPSET tramadol (TRAMADOL) Allergy (Intermediate, Verified 08/06/25 10:18) STOMACH UPSET ibuprofen (IBUPROFEN) Adverse Reaction (Intermediate, Verified 08/06/25 10:18) ABD PAIN HPI Comments Details: 40-year-old female patient returns 1 week following exploration of umbilicus for persistent drainage. Operative findings were negative for any urachal cyst or other fistula formation. She reports no problems following the surgery including bleeding or discharge. [facility] Medical History (Updated 08/06/25 @ 10:28 by Enzo Tran MD) Asthma Chronic headache Bipolar disorder Surgical History History of ankle surgery History of carpal tunnel release Hx of hysterectomy Hx of cholecystectomy Social History Comment: count correct Patient Tobacco Use Status: Current everyday Tobacco user Tobacco use type: Cigarette Current occupational status: employed Current occupation: rt hand /dominos Physical Exam Vital Signs: Last Vital Signs Pulse 68 08/06/25 10:18 BP 108/53 L 08/06/25 10:18 BMI result Body Mass Index 38.3 Const General: no acute distress Nutritional Appearance: well nourished Orientation/consciousness: patient oriented x3 Resp Effort & Inspection: normal respiratory effort GI Other: Abdominal incision is clean and intact without redness or discharge. No evidence of any infection at this time. Abdomen image: 2 1. 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 No urachal cyst was identified. She tolerated the procedure well her wounds are healing nicely. She may resume normal activity without restrictions and should follow up as needed. Coding Level of Care Code Global (83729) Diagnoses Urachal cyst Q64.4
[2025-08-06 10:18] VITALS: BP 108/53; PULSE 68; BMI 38.3
--- OUTSIDE RECORDS SUMMARY | 2025-08-06 11:23 | XMS_ITS | Encounter Summary ---
Author Organization [employer] Address [address] [place] [address] [address] [address] Care Team Providers Care Audio Specialist Name Role Phone Pina Dixon MD Primary Care Pro vider Reason for Visit * Reason Comments Med Refill Encounter Details Date Type Department Care Team (Late Contact Info) Description 07/05/2023 Refill [facility] MEDICINE [address] [place] [address] [phone] Marcello Luna FNP Attention deficit hyperactivity disorder [...] Description 08/17/2025 10:45 AM EST Office Visit [facility] [address] [place] [address] [phone] Pina Dixon MD [address] [place], [place] [phone] 08/28/2025 2:30 PM EST Office Visit [facility] [address] [place] [address] [phone] Tiesha Ng, OD [address] [place] [address] documented as of this encounter Visit Diagnoses Diagnosis Attention deficit hyperactivity disorder (ADHD), unspecified ADHD type documented in this encounter Additional Health Concerns Assessment Noted Time PHQ-9 Depression Total Score: 9 05/27/20 23 11:09 AM EDT documented as of this encounter Care Teams Audio Specialist Relationship Specialty Start Date End Date Pina Dixon MD [address] [place] [phone] PCP - General Internal Medicine 12/22/22 documented as of this encounter
--- OUTSIDE RECORDS SUMMARY | 2025-08-06 11:23 | XMS_ITS | Encounter Summary ---
Author Organization [employer] Address [address] [facility] [address] [place] [address] Care Team Providers Care It Data Architect Name Role Phone Ford Gabriel Primary Care Provider Unavail able Pina Dixon MD Primary Care Pro vider Reason for Visit * Reason Onset Date Comments Med Refill 10/01/2022 Encounter Details Date Type Department Care Team (Late st Contact Info) Description 10/01/2022 Refill [facility]INE [address] [place] [address] Ford Gabriel AGNP Attention deficit hyperactivity disorder [...] Adderall 20 mg Please contact pt at [phone] documented in this encounter Plan of Treatment Upcoming Encounters Date Type Department Care Team (Late st Contact Info) Description 08/17/2025 10:45 AM EST Office Visit [facility] [address] [place] [address] Pina Dixon MD [address] [place] [address] 08/28/2025 2:30 PM EST Office Visit [facility] OPT[facility]ETRY [address] [place], [place] [phone] Tiesha Ng, OD [address] [place], [place] [phone] documented as of this encounter Visit Diagnoses Diagnosis Attention deficit hyperactivity disorder (ADHD), unspecified ADHD type documented in this encounter Care Teams It Data Architect Relationship Specialty Start Date End Date Ford Gabriel AGNP PCP - General Family Medicine 09/03/22 12/21/22 Pina Dixon MD [address] [place] [phone] PCP - General Internal Medicine 12/22/22 documented as of this encounter
--- OUTSIDE RECORDS SUMMARY | 2025-08-06 11:23 | XMS_ITS | Encounter Summary ---
Author Organization [employer] Address [address] [place] [address] 7[place], [place] [address] Care Team Providers Care Lineman Name Role Phone Pina Dixon MD Primary Care Pro vider Reason for Visit * Reason Comments Med Refill Encounter Details Date Type Department Care Team (Late Contact Info) Description 07/06/2023 Refill [facility] MEDICINE [address] [place] [address] [phone] Marcello Luna FNP Attention deficit hyperactivity disorder [...] 08/17/2025 10:45 AM EST Office Visit [facility] MEDICINE [address] [place] [address] [phone] Pina Dixon MD [address] [place], [place] [phone] 08/28/2025 2:30 PM EST Office Visit [facility] OPTOMETRY [address] [place] [address] [phone] Tiesha Ng, OD [address] [place] [address] documented as of this encounter Visit Diagnoses Diagnosis Attention deficit hyperactivity disorder (ADHD), unspecified ADHD type documented in this encounter Additional Health Concerns Assessment Noted Time PHQ-9 Depression Total Score: 9 05/27/20 23 11:09 AM EDT documented as of this encounter Care Teams Lineman Relationship Specialty Start Date End Date Pina Dixon MD [address] [place] [phone] PCP - General Internal Medicine 12/22/22 documented as of this encounter
--- OUTSIDE RECORDS SUMMARY | 2025-08-06 11:23 | XMS_ITS | Encounter Summary ---
Author Organization [employer] Address [address] [place] [address] [place] [address] Care Team Providers Care Pier Master Assistant Name Role Phone Pina Dixon MD Primary Care Pro vider Reason for Visit * Reason Comments Med Refill Encounter Details Date Type Department Care Team (Late Contact Info) Description 06/30/2023 Refill [facility] MEDICINE [address] [place] [address] [phone] Marcello Luna FNP Attention deficit hyperactivity disorder [...] 10:45 AM EST Office Visit [facility] MEDICINE [address] [place] [address] [phone] Pina Dioxn MD [address] [place], [place] [phone] 08/28/2025 2:30 PM EST Office Visit [facility] OPTOMETRY [address] [place] [address] [phone] Tiesha Ng, OD [address] [place] [address] documented as of this encounter Visit Diagnoses Diagnosis Attention deficit hyperactivity disorder (ADHD), unspecified ADHD type documented in this encounter Additional Health Concerns Assessment Noted Time PHQ-9 Depression Total Score: 9 05/27/20 23 11:09 AM EDT documented as of this encounter Care Teams Pier Master Assistant Relationship Specialty Start Date End Date Pina Dixon MD [address] [place] [phone] PCP - General Internal Medicine 12/22/22 documented as of this encounter
--- OUTSIDE RECORDS SUMMARY | 2025-08-06 11:23 | XMS_ITS | Encounter Summary ---
Author Organization [employer] Address [address] [facility] 7 [place] [address] Care Team Providers Care Stream Control Officer Name Role Phone Pina Dixon MD Primary Care Pro vider Reason for Visit * Reason Onset Date Comments Prior Authorization 01/07/2023 Encounter Details Date Type Department Care Team ([facility] st Contact Info) Description 01/07/2023 Telephone [facility] MED[facility]INE [address] [place], [place] [phone] Pina Dixon MD [address] [place] [address] Prior Authorization Social History Tobacco Use Types [...] Medication previously sent. Please contact pt at [phone] * Telephone Encounter - Severo William - 01/07/2023 9:36 AM EDT Tc from pt requesting a PA for medication adderall 20 mg. Please contact pt at [phone] documented in this encounter Plan of Treatment Upcoming Encounters Date Type Department Care Team (Late st Contact Info) Description 08/17/2025 10:45 AM EST Office Visit [facility] [address] [place] [address] Pina Dixon MD [address] [place] [address] 08/28/2025 2:30 PM EST Office Visit [facility] OPTOMETRY [address] [place] [address] Tiesha Ng, OD [address] [place] [address] documented as of this encounter Visit Diagnoses Not on filedocumented in this encounter Care Teams Stream Control Officer Relationship Specialty Start Date End Date Pina Dixon MD [address] [place] [address] PCP - General Internal Medicine 12/22/22 documented as of this encounter
--- OUTSIDE RECORDS SUMMARY | 2025-08-06 11:23 | XMS_ITS | Encounter Summary ---
Author Organization [employer] Address [address] [place] [address] 7 [place] [address] Care Team Providers Care Manager Part Name Role Phone Pina Dixon MD Primary Care Pro vider Reason for Visit * Reason Onset Date Comments Nurse Triage 11/02/2023 Encounter Details Date Type Department Care Team (Late st Contact Info) Description 11/02/2023 Telephone [facility] MEDICINE [address] [place], [place] [phone] Pina Dixon MD [address] [place] [address] Nurse Triage Social History Tobacco Use Types [...] 7th rib. Pt was originally seen in [facility] Ed 10/10/23 and also at [facility] ED 10/25/23 due to continued left sided [...] provider for ED follow up. Apt with [employer] ENGINEERING TECHNOLOGIST Amando 11/09/23 @ 1115am. Insurance is verified [...] Description 08/17/2025 10:45 AM EST Office Visit [facility] MEDICINE [address] [place] [phone] Pina Dixon MD [address] [place], [place] [phone] 08/28/2025 2:30 PM EST Office Visit [facility] OPTOMETRY [address] [place] [address] Tiesha Ng, OD [address] [place] [address] documented as of this encounter Visit Diagnoses Not on filedocumented in this encounter Additional Health Concerns Assessment Noted Time PHQ-9 Depression Total Score: 9 10/11/19 24 3:52 PM EST documented as of this encounter Care Teams Manager Part Relationship Specialty Start Date End Date Pina Dixon MD [address] [place] [address] [phone] PCP - General Internal Medicine 12/22/22 documented as of this encounter
--- OUTSIDE RECORDS SUMMARY | 2025-08-06 11:24 | XMS_ITS | Clinical Summary ---
Author Organization [employer] Address [address] [facility] [address] [place] [address] Care Team Providers Care Linseed Oil Temperer Name Role Phone Pina Dixon MD Primary [...] s:Bipolar affective disorder, remission status unspecified (CMS/HCC) ([facility]) TAKE 1 TABLET BY MOUTH [...] A DAY 60 tablet 07/13/20 25 Active amphetamine-dext roamphetamine (Adderall) 20 MG tabletIndication [...] management. For any issues or concerns, call [facility]. All her questions were answered. She agrees [...] Encounters Date Type Department Care Team Description 07/25/2025 Orders Only GENERIC EXTERNAL DATA DEPARTMENT Provider, Generic External Data 07/13/2025 Refill [facility] MEDICINE [address] [place] [phone] Pina Dixon MD Attention deficit hyperactivity disorder (ADHD), unspecified ADHD type 07/09/2025 Results Follow-Up [facility] MEDICINE [address] [place] [phone] Pina Dixon MD Gram Stain Result, US Pelvis Limited 07/05/2025 1:45 PM EDT Office Visit [facility] MEDICINE [address] [place] [phone] Pina Dixon MD Breast cancer screening by mammogram (Primary Dx); Health care maintenance; Cellulitis, unspecified cellulitis site; Encounter for immunization; Wound infection; Dietary counseling; Exercise counseling; Bipolar affective disorder, remission status unspecified (CMS/HCC) (HCC); Mild intermittent asthma, unspecified whether complicated; Attention deficit hyperactivity disorder (ADHD), unspecified ADHD type; Anxiety 07/05/2025 Orders Only [facility] MEDICINE [address] [place] [address] Pina Dixon MD Wound infection (Primary Dx); Abdominal wall abscess 07/05/2025 Telephone [facility] Information Management [address] [place] [address] Pina Dixon MD US ABDOMINAL WALL ORDER 07/05/2025 Travel 07/05/2025 Refill [facility] MED & PEDS [address] [place] [address] Pina Dixon MD Bipolar affective disorder, remission status unspecified (CMS/HCC) (HCC) 07/04/2025 Telephone [facility] MEDICINE [address] [place] [address] Pina Dixon MD Nurse Triage 06/13/2025 Telephone [facility] MEDICINE [address] [place] [address] Pina Dixon MD Med Refill 05/25/2025 Telephone [facility] MEDICINE [address] [place] [address] Pina Dixno MD dec recall 05/18/2025 Telephone [facility] MEDICINE [address] [place] [address] Pina Dixon MD Call Back Request 05/17/2025 Refill [facility] MEDICINE [address] [place] [address] Pina Dixon MD Attention deficit hyperactivity disorder [...] the past 12 months, has t he [employer] gas, oil or water company threatened to [...] 08/17/2025 10:45 AM EST Office Visit [facility] MEDICINE [address] [place] [address] Pina Dixno MD [address] [place] [address] 08/28/2025 2:30 PM EST Office Visit [facility] OPTOMETRY [address] [place] [address] Tiesha Ng, OD [address] [place] [address] Health Maintenance Due Date Last Done Comments [...] Procedure Name Priority Date/Time Associated Diagnosis Comments GROSS AND MICROSCOPIC LEVEL 3 Routine 07/25/2025 9:35 AM EST US PELVIS LIMITED STAT 07/11/2025 2:4 5 [...] Recently Relevant to Health Maintenance Results * Gross and Microscopic Level 3 (07/25/2025 9:35 AM EST) 07/25/2025 9:35 AM EST 07/25/2025 11:35 AM EST [facility] - 07/26/2025 4:19 PM EST ----- ------- Name: Roslyn Borrero Age/Sex: 40/F : 1985 Unit#: [id number] Attend Dr: Enzo Tran MD Re07/25/25 Status: [facility] Location: [facility] Disch: ----- ------- SPEC : [id number] RECD: 07/25/25 STATUS: GAGE CABRAL NUM: [id number] SHAHAB: 07/25/[address] [facility] [address]: Enzo Tran MD ENTERED: 07/25/25-1237 SP TYPE: Surgical OTHR DR: Pina Dixon MD ORDERED: Gross Micro L3 Diagnosis Soft tissue, possible fistula tract, excision: Fibrovascular and adipose tissue with varying degrees of fibrosis and focal degenerative changes; no epithelial lining identified; no malignancy identified. Clinical History Pre-Op Dx: Malformation of urachus Post-Op Dx: Negative exploration Microscopic Description Microscopic sections reviewed. Material Received Possible fistula tract Gross Description Received in formalin is a 1.5 x 1.2 x 0.5 cm fragment of toro-yellow fibroadipose tissue, sectioned and entirely submitted in A1. (RJD) IHC S/NG Disclaimer NOTE: Unless otherwise stated, all tissue is formalin-fixed and paraffin-embedded. Some or all of the immunohistochemical tests reported herein may have been developed and their performance characteristics determined by [facility]. They have not been cleared or approved by the U.S. Food and Drug Administration (FDA). However, the FDA has determined that such clearance or approval is not necessary. This laboratory is certified under the Clinical Laboratory Improvement Amendments of 1988 (CLIA) as qualified to perform high complexity clinical laboratory testing. Copies To: Enzo Tran MD [facility] [address] [place] [phone] CONTINUED ON NEXT PAGE ----- ------- Name: Roslyn Borrero Age/Sex: 40/F : 1985 Unit#: [id number] Attend Dr: Enzo Tran MD Re07/25/25 Status: [facility] Location: [facility] Disch: ----- ------- SPEC : [id number] RECD: 07/25/25493 STATUS: GAGE CABRAL NUM: [id number] SHAHAB: 07/25/[address] [facility] [address]: Enzo Tran MD ENTERED: 07/25/25 SP TYPE: Surgical OTHR DR: Pina Dixon MD ORDERED: Gross Micro L3 Copies To: (Continued) Pina Dixon MD [facility] [address] [place] [address] ----- ------- Signed (signature on file) Mic Gonzalez MD 07/26/25 1619 ----- ------- END OF REPORT us Generic External Data Provider LAB CYTOLOGY [place] FRAGOSO Final Result [facility] [address] [place] [phone] * US Pelvis Limited (07/11/2025 2:45 PM EDT) Anatomical Region Laterality Modality Pelvis Ultrasound 07/11/2025 2:45 PM EDT Narrative 07/11/2025 3:04 PM EDT [address] [address] Ultrasound Report Signed Patient: Roslyn Borrero MR#: [id number] : 1985 Acct:[id number] Age/Sex: 40 / F ADM Date: 07/11/25 Loc: HO.US Attending Dr: Pnia Cordero MD Ordering Physician: Pina Dixon MD Date of Service: 07/11/25 Procedure(s): US pelvic limited Accession Number(s): [id number] cc: Pina Dixon MD Reason for Exam: [...] 07/11/25 1502 DD/ 1445 TD/TT: 07/11/25 1452 Multiple Needle Stitcher: SUBonnie Procedure Note Donotuseinterpreter, Image - 07/11/2025 [place] [address] Ultrasound Report Signed Patient: Augustine Borrero#: [id number] : 1985Acct:[id number] Age/Sex: 40 / FADM Date: 07/11/25 Loc: HO.US Attending Dr: Pina Cordero MD Ordering Physician: Pina Dixon MD Date of Service: 07/11/25 Procedure(s): US pelvic limited Accession Number(s): [id number] cc: Pina Dixon MD Reason for Exam: [...] 07/11/25 1502 DD/ 1445 TD/TT: 07/11/25 1452 Multiple Needle Stitcher: EDIS Pina Cordero MD IMG US PROCEDURES Final Result * Gram Stain Result (07/05/2025 2:40 PM EDT) 07/05/2025 2:40 PM EDT 07/05/2025 6:23 PM EDT Comment:Umbilicus Narrative [facility] - 07/09/2025 12:49 PM EDT [facility]BI[facility] INFECTION Gram stain results: 4+ polys 2+ epithelial cells 1+ red blood cells 3+ Gram-positive cocci 4+ Gram-negative rods [facility]BI[facility] INFECTION Granulicatella adiacens Quant Org ID 4+ [facility] N/A Susceptibility not routinely performed on this isolate. 07/09/25 PER , ORGANISM SENT FOR SUSCEPTIBILITY TESTING Specimen Source: Umbilicus us Pina Cordero MD HISTORICAL/NON OR DERABLE LABS Final Result [facility] [address] [place] [phone] * Hepatitis C Antibody with Reflex to HCV, RNA, Quantitative, Real-Time PCR (02/29/2024 11:29 AM EDT) Hepatitis C Antibody Nonreactive Nonreactive [facility] Comment:Antibodies to HCV no t detected; does not exclude early acuteHCV infection. Blood Venous blood specimen / Unknown 02/29/2024 11:29 AM EDT 02/29/2024 12:58 PM EDT us Pina Cordero MD LAB BLOOD ORDERAB LES Final Result Performing Organization Address [facility]/ZIP Co de Phone Number [facility] [address] [place] [phone] * HIV-1/2 Antigen and Antibodies, Fourth Generation, with Reflexes (02/29/2024 11:29 AM EDT) HIV AB/AG Nonreactive Nonreactive [facility] Comment:HIV-1 p24 Ag and/or HIV-1/HIV-2 Ab not detected.A test result that is nonreactive does not exclude thepossibility of exposure to or infection with HIV-1 and/orHIV-2. Nonreactive results in this assay for individualswith prior exposure to HIV-1 and/or HIV-2 may be due toantigen and antibody levels that are below the limit ofdetection of this assay.The [place] HIV Ag/Ab Combo assay result andsupplemental assay results should be interpreted inconjunction with the patient's clinical presentation,history and other laboratory results. If the results areinconsistent with clinical evidence, additional testing issuggested to confirm the result. Blood Venous blood specimen / Unknown 02/29/2024 11:29 AM EDT 02/29/2024 12:58 PM EDT us Pina Cordero MD LAB BLOOD ORDERAB LES Final Result Performing Organization Address City/[facility]/ZIP Co de Phone Number [facility] [address] [place] [phone] * (ABNORMAL) Lipid Panel, Standard (02/29/2024 11:29 AM EDT) Triglycerides 118 <150 mg/dL [facility] Comment:Desirable Triglyceri de: less than 150 mg/dLBorderline High Triglyceride 150-199 mg/dLHigh Triglyceride: 200-499 mg/dLVery High Triglyceride: greater than or equal to 5OO mg/dL Cholesterol 239(H) <200 mg/dL [facility] Comment:Desirable Cholestero l: less than 200 mg/dLBorderline High Cholesterol: 200-239 mg/dLHigh Cholesterol: greater than 239 mg/dL LDL Cholesterol Calculated 148(H) <100 mg/dL [facility] Comment:Desirable LDL: less than 100 mg/dLNear Optimal/Above Optimal LDL: 110- 129 mg/dLBorderline High LDL: 130-159 mg/dLHigh LDL: 160-189 mg/dLVery High LDL: greater than or equal to 190 mg/dL HDL Cholesterol 68 >40 mg/dL [facility] Comment:Desirable HDL: great er than 40 mg/dL Note: This HDL assay may give artificially low results in patients with liver disease. Blood Venous blood specimen / Unknown 02/29/2024 11:29 AM EDT 02/29/2024 12:58 PM EDT us Pina Cordero MD LAB BLOOD ORDERAB LES Final Result [facility] [address] [place] [phone] from Last 3 Months or Most Recently Relevant to Health Maintenance Insurance [facility] C3 Care Teams Linseed Oil Temperer Relationship Specialty Start Date End Date Pina Dixon MD [address] [place] [phone] PCP - General Internal Medicine 12/22/22
--- OUTSIDE RECORDS SUMMARY | 2025-08-06 11:24 | XMS_ITS | Encounter Summary ---
Author Organization [employer] Address [address] [facility] [address] [place] [address] Care Team Providers Care Equipment Operator/Laborer Name Role Phone Pina Dixon MD Primary Care Pro vider Encounter Details Date Type Department Care Team ([facility] st Contact Info) Description 07/09/2025 Results Follow-Up [facility] MEDICINE [address] [place] [address] Pina Dixon MD [address] [place] [address] Gram Stain Result, US Pelvis Limited Social [...] - 07/09/2025 12:48 PM EDT I called [facility] [place] [place] Confirmed they [...] Description 08/17/2025 10:45 AM EST Office Visit [facility] MEDICINE [address] [place] [address] Pina Dixon MD [address] [place] [address] 08/28/2025 2:30 PM EST Office Visit [facility] OPTOMETRY [address] [place] [address] Tiesha gN, OD [address] [place] [address] documented as of this encounter Visit Diagnoses Not on filedocumented in this encounter Additional Health Concerns Assessment Noted Time PHQ-9 Depression Total Score: 1 01/20/20 24 2:34 PM EDT documented as of this encounter Care Teams Equipment Operator/Laborer Relationship Specialty Start Date End Date Pina Dixon MD [address] [place], [place] [phone] PCP - General Internal Medicine 12/22/22 documented as of this encounter
--- OUTSIDE RECORDS SUMMARY | 2025-08-06 11:24 | XMS_ITS | Clinical Summary ---
Demographics Address [address] [facility] [place] [address] Home Phone Preferred Language Portuguese Marital Status Single Spiritism Affiliation Unknown Race White Ethnic Group Not or Lati no Author Organization [facility] Address [address] [place] [phone] Phone Care Team Providers Care Compensation/Benefits Specialist Name Role Phone Pcp, Unknown Primary Care [...] Medical Devices Not on file [place] [address] [place] [address] [place] [address] [place] [address] [employer] [id number], [place] [id number] [place] [address] [address] [id number] [address] Care Teams Compensation/Benefits Specialist Relationship Specialty Start Date End Date Pcp, Unknown PCP - General 10/10/23 Additional Source Comments The information contained in this document represents components of the legal health record. It is not the complete legal health record.[facility]
== END 2025-08-06 10:25 | disposition home or self-care (01) ==
LOC: HO.HGS 09:44
PROVIDERS: PCP Student in an Organized Health Care Education/Training Program; Visit Provider Surgery
DX: Q64.4 Malformation of urachus (principal)
CPT/HCPCS: 99024

== ENCOUNTER → 2025-08-06 09:44 | Outpatient (BNVA) | payer MEDICAID, SELFPAY | PROVIDERS: PCP Student in an Organized Health Care Education/Training Program; Visit Provider Surgery | DX: Q64.4 Malformation of urachus (principal) | CPT/HCPCS: 99212 ==